=== PATIENT | female | born 1970 | race Caucasian/White ===

== ENCOUNTER 2023-07-07 09:12 | Outpatient (AMB) | payer OTHER, SELFPAY ==
--- NOTE | 2023-07-07 09:25 | A.SPINEOV_ITS ---
Intake Intake Visit Reasons: Lumbar spondylosis Intake Note: Ms. Johnson is here today c/o bilateral sciatica pain radiating down the legs. 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 HPI: This 52-year-old female started with pain in the right hip area years ago. The symptoms progressed to pain going down her thighs and distal part of her legs with the right side is more affected than the left side. The pain comes with standing and walking. 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 Sitting down or laying down alleviates his symptoms. Recently, she also noticed intermittent tingling and numbness in her legs. She has done extensive conservative treatments including vitamin supplements, stretching exercises, physical therapy, massage therapy, chiropractor, shoe inserts, CBD, lidocaine patches, IV therapy, trigger point injections, inflamma tory diet, muscle relaxers, gabapentin, ibuprofen, software therapy. The symptoms are progressively getting worse despite all these aforementioned management. 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 Smokes a few cigarettes a day Physical Exam: Pleasant female. She is able to reproduce the radiating pain down her legs in the office after short period of standing. Hip exam reveals no abnormalities. Provocative SI joint tests are negative. No deficits or motor sensation or reflexes Radiological Studies: MRI done at [facility] on 04/19/2023 shows severe spinal stenosis L4-5 and moderate L3-4 stenosis. Impression/Plan: This patient is suffering from neurogenic claudication due to severe spinal stenosis L4-5 and moderate spinal stenosis L3-4. I offered her a lumbar laminotomy of those levels. She scheduled for 09/16/2023. Thank you for allowing me to participate in your patients care. total time spent was 50 minutes in counseling ,coordination of plan, personal review of imaging, surgical decision making and subsequent plan Miller Garcia MD, PhD [facility] Trained Neurosurgeon Director, [facility] [place] [facility] Coding Level of Care Code New Pt Level 4 (66621) Diagnoses Lumbar stenosis with neurogenic claudication M48.062
== END 2023-07-07 10:12 | disposition home or self-care (01) ==
PROVIDERS: PCP Family Medicine; Referring Provider Nurse Practitioner; Visit Provider Neurological Surgery
DX: M48.062 Spinal stenosis, lumbar region with neurogenic claudication (principal)
CPT/HCPCS: 99204

== ENCOUNTER → 2023-07-07 09:12 | Outpatient (BNVA) | payer OTHER, SELFPAY | PROVIDERS: PCP Family Medicine; Visit Provider Neurological Surgery ==

== ENCOUNTER 2023-09-16 06:13 | Day surgery (SDC) | payer OTHER, SELFPAY ==
[2023-09-01 10:36] VITALS: BMI 23.8
[2023-09-16] VITALS (7 sets, daily range): BP systolic 131–158; BP diastolic 40–78; PULSE 63–90; RESP 12–16; TEMP 36.6–36.9; O2SAT 94–98
--- NOTE | ~2023-09-16 | FL_ITS ---
EXAMINATION: XR FLUOROSCOPY WITH IMAGES CLINICAL INFORMATION: L4-L5 laminectomy. COMPARISON: None available. TECHNIQUE: Fluoroscopy Supervised By: Dr. Story's. Fluoroscopy Time: 0.0 min. Cumulative Dose: 2.67 mGy. DAP: 0.561 Gycm2. Images: 2. FINDINGS: Intraoperative fluoroscopy and spot films were performed during a procedure in the OR. Two images show probes at the level of the upper endplate of L4 and at the upper endplate of L5. Please see Dr. Story's report for complete details. FL/FL guidance in OR IMPRESSION: Intraoperative fluoroscopy and spot films were obtained. Please see Dr. Story's report for complete details.
[2023-09-16] MEDS: Gabapentin 300 MG CAPSULE PO (07:19)
[2023-09-16] MEDS: methocarbamoL 750 MG TABLET PO (07:19)
--- NOTE | 2023-09-16 07:25 | HO.ANESPROP2 ---
Documented by User: Kendy Gamez NP 09/15/23 12:29 HPI - Anesthesia Eval Consult details Narrative: 52yo F for Left L4-5 Laminotomy Medically optimized per PCP [facility] Active Problems Active Problems: All Active Problems Lumbar stenosis with neurogenic claudication (Acute) Past Medical History Medical History (Updated 09/01/23 @ 10:18 by Flor Waite RN) Arthritis Back pain Emphysema of lung IBS (irritable bowel syndrome) Anxiety Depression COPD (chronic obstructive pulmonary disease) Surgical History Surgical History (Updated 09/01/23 @ 09:30 by Flor Waite RN) History of repair of rotator cuff Hx of cholecystectomy Social History Social History Are you a primary managed care provider to a significant other at home: No Do you presently have visiting nurse or other home services: No Patient Tobacco Use Status: Former Tobacco user Use of substances other than those prescribed or required for medical reasons: No Have you been hit, kicked, punched, or otherwise hurt by someone within the past year? If so, by whom?: No Are you DNR?: No Advance Directives: No Advance Directives Information Provided: Yes Advance Directives on File: No Recently lost weight without trying: No How much weight loss: 2-13 pounds Eating poorly because of decreased appetite: No Nutrition screen score: 1 Nutrition Risks: No Nutritional Risk Patient : No : No Poor oral hygiene: No Meds Allergies Allergy/AdvReac Type Severity Reaction Status Date / Time Sulfa (Sulfonamide AdvReac Stomach Verified 09/16/23 07:03 Antibiotics) Upset Amoxicillin Allergy Stomach Uncoded 09/16/23 07:03 Upset Home Medications ?Medication ?Instructions ?Recorded ?Confirmed ?Last Taken ?Type albuterol sulfate 90 mcg/actuation 2 puff inhalation Q4H PRN wheezing 09/01/23 09/01/23 Unknown History aerosol inhaler calcium carbonate 500 mg PO DAILY PRN Acid Reflux 09/01/23 09/01/23 Unknown History citalopram 20 mg tablet 20 mg PO DAILY 09/01/23 09/01/23 09/16/23 05:00 History desvenlafaxine 50 mg 50 mg PO DAILY 09/01/23 09/01/23 09/16/23 05:00 History tablet,extended release 24 hr fluticasone 250 mcg-salmeterol 50 1 inh inhalation BID 09/01/23 09/01/23 Unknown History mcg/dose blistr powdr for inhalation Exam Height,Weight and Vital Signs: Height 5 ft 2 in Weight 58.967 kg Pertinent Lab Results Pertinent Lab Results: CMP and CBC 08/2023 WNL Narrative Narrative: EKG 08/2023 NSR @ 66 Assessment and Plan Assessment Anesthesia Assessment: Chart Reviewed Documented by User: Candida Dodge, DO 09/16/23 07:25 [facility] Past Medical History Medical History (Updated 09/01/23 @ 10:18 by Flor Waite RN) Arthritis Back pain Emphysema of lung IBS (irritable bowel syndrome) Anxiety Depression COPD (chronic obstructive pulmonary disease) Family History Family history of problems with anesthesia: No Surgical History Surgical History (Updated 09/01/23 @ 09:30 by Flor Waite RN) History of repair of rotator cuff Hx of cholecystectomy History of Problems with Anesthesia: No Social History Social History Are you a primary managed care provider to a significant other at home: No Do you presently have visiting nurse or other home services: No Patient Tobacco Use Status: Former Tobacco user Use of substances other than those prescribed or required for medical reasons: No Have you been hit, kicked, punched, or otherwise hurt by someone within the past year? If so, by whom?: No Are you DNR?: No Advance Directives: No Advance Directives Information Provided: Yes Advance Directives on File: No Recently lost weight without trying: No How much weight loss: 2-13 pounds Eating poorly because of decreased appetite: No Nutrition screen score: 1 Nutrition Risks: No Nutritional Risk Patient : No : No Poor oral hygiene: No Meds Allergies Allergy/AdvReac Type Severity Reaction Status Date / Time Sulfa (Sulfonamide AdvReac Stomach Verified 09/16/23 07:03 Antibiotics) Upset Amoxicillin Allergy Stomach Uncoded 09/16/23 07:03 Upset Home Medications ?Medication ?Instructions ?Recorded ?Confirmed ?Last Taken ?Type albuterol sulfate 90 mcg/actuation 2 puff inhalation Q4H PRN wheezing 09/01/23 09/01/23 Unknown History aerosol inhaler calcium carbonate 500 mg PO DAILY PRN Acid Reflux 09/01/23 09/01/23 Unknown History citalopram 20 mg tablet 20 mg PO DAILY 09/01/23 09/01/23 09/16/23 05:00 History desvenlafaxine 50 mg 50 mg PO DAILY 09/01/23 09/01/23 09/16/23 05:00 History tablet,extended release 24 hr fluticasone 250 mcg-salmeterol 50 1 inh inhalation BID 09/01/23 09/01/23 Unknown History mcg/dose blistr powdr for inhalation Exam Exam Date and Time: September 16, [id number] Height,Weight and Vital Signs: Height 5 ft 2 in Weight 58.967 kg Height 5 ft 2 in Weight 58.967 kg Vital Signs Temperature 97.9 F 09/16/23 07:11 Pulse Rate 63 09/16/23 07:11 Respiratory Rate 16 09/16/23 07:11 Blood Pressure 133/76 09/16/23 07:11 Pulse Oximetry 97 09/16/23 07:11 Oxygen Delivery Method Room Air 09/16/23 07:11 Temperature 97.9 F 09/16/23 07:11 Pulse Rate 63 09/16/23 07:11 Respiratory Rate 16 09/16/23 07:11 Blood Pressure 133/76 09/16/23 07:11 Pulse Oximetry 97 09/16/23 07:11 Oxygen Delivery Method Room Air 09/16/23 07:11 Airway Mallampati Class: I TM Dist: >3cm Neck ROM: Full Loose/Missing/Broken Teeth: No (patient denies any loose or broken teeth) Heart: S1S2 Lungs: CTAB Assessment and Plan Assessment Anesthesia Assessment: Anesthesia Plan Discussed and Chart Reviewed Final Anesthetic Review Family History of Problems with Anesthesia: No History of Problems with Anesthesia: No NPO: Yes ASA Class: II Final Preanesthetic Review: No Changes in Pt Med Stat, Meds/Allgs Chart Reviewed, Consent Obtained/Reviewed and Anes Risks/Benef Reviewed Patient Risk: Low Procedure Risk: Intermediate Anesthetic Plan Anesthetic Plan: GA and Agree w/ Assess. and Plan Disposition: Standard PACU
--- NOTE | 2023-09-16 07:30 | MHC.SHP ---
Pre-Procedural Eval Section A - 24 Hr Update-Section A only Date of Service: 09/16/23 The patient is an INPATIENT: No Changes since office visit: No Cold of Flu in the past 2 weeks, No New Medical Problems, No Changes in Medication and No Patient answered all questions The patient has been examined within 24 hours of the surgical procedure. The History & Physical has been completed within 30 days and I have reviewed it.: No Section B - Complete if H&P > 30 days Chief Complaint: Spinal stenosis, lumbar region with neurogenic Allergies: Allergies Allergy/AdvReac Type Severity Reaction Status Date / Time Sulfa (Sulfonamide AdvReac Stomach Verified 09/16/23 07:03 Antibiotics) Upset Amoxicillin Allergy Stomach Uncoded 09/16/23 07:03 Upset Review of Systems Sugical H&P ROS: Negative: Constitution, Cardiovascular, Respiratory, Neurological, Psychiatric, Hem-Onc, Allergic/Immunologic, Gastrointestinal, Genitourinary, Musculoskeletal, Integumentary, Endocrine and Eyes/Ears/Nose/Throat Exam Surgical H&P Exam: Normal: HEENT, Normal: Heart, Normal: Lungs, Normal: Extremities, Normal: Abdomen, Normal: Skin and Normal: Neurological (awake, alert,oriented x 3 ) Plan Diagnosis/Plan: Unchanged L3-4, L4-5 bilateral decompression Time Spent With Patient Time: Total time managing care of this patient today __5__ minutes.
--- NOTE | 2023-09-16 07:31 | P.DS_ITS ---
DS: Providers Provider Date of Service: 09/16/23 Date of discharge: 09/16/23 Primary care physician: Jabier Avendano MD Admitting clinician: Miller Garcia DS: Diagnosis Discharge Diagnosis (1) Lumbar stenosis with neurogenic claudication: Status: Acute DS: Summary Time Attestation Discharge Coordination Time (in mins): 5 Quality: Safe Use of Opioids Does Pt have an Active Cancer Diagnosis on the Problem List?: No Quality: Stroke Does the patient have a stroke diagnosis?: No Physical Exam Vital Signs: Vital Signs: Last Vital Signs Temp 97.9 F 09/16/23 07:11 Pulse 63 09/16/23 07:11 Resp 16 09/16/23 07:11 BP 133/76 09/16/23 07:11 Pulse Ox 97 09/16/23 07:11 O2 Del Method Room Air 09/16/23 07:11 BMI result Body Mass Index 23.8 Discharge Plan Discharge Patient Disposition: Home, Self-Care Referrals: Jabier Avendano MD [Primary Care Provider] - 1 Week Discharge Medications: New oxycodone 5 mg tablet 5 mg PO Q4H PRN (Reason: pain) Qty: 30 0RF Rx Instructions: Partial Fill upon patient request. docusate sodium [Colace] 100 mg capsule 100 mg PO BID Qty: 20 0RF Continued citalopram 20 mg tablet 20 mg PO DAILY desvenlafaxine 50 mg Tablet Extended Release 24 Hr 50 mg PO DAILY calcium carbonate 500 mg calcium (1,250 mg) Tablet,Chewable 500 mg PO DAILY PRN (Reason: Acid Reflux) fluticasone propion-salmeterol 250-50 mcg/dose Blister With Device 1 inh INHALATION BID albuterol sulfate 90 mcg/actuation HFA aerosol inhaler 2 puff inhalation Q4H PRN (Reason: wheezing) Discharge Orders: Discharge Order (Routine); Ordered 09/16/23 Ordered By: Shree Patton Diet: Advance to usual diet Activity on Discharge: As tolerated Activity Restrictions/Additional Instructions: After your spinal surgery we ask you to observe the following restrictions/guidelines: Activity: It is normal to feel some discomfort as you increase your activity, but that will improve with time. We ask you avoid heavy lifting or acitivities that cause pain. As a general rule, 8lbs is a safe limit for lifting right after surgery. Walk as much as you feel comfortable but not to exhaustion. You will feel extra tired the first few days after surgery. Stay well hydrated. It is OK to walk up and down stairs You may return to driving when you are off narcotics (such as vicodin, oxyc odone, dilaudid, etc), and you are back to normal functional capacity. If you have any concerns please check with office before driving. Return to work is specific to each patient and each surgery, so please speak with your doctor/PA at first follow up. Please bring paperwork such as FMLA at that time if you need it filled out. Medications: For optimum pain control, it is best to start with a combination of 500 mg of Tylenol every 4 hours with 600 mg of Motrin every 8 hours, and use narcotics as needed in between for breakthrough pain. We will give you a short supply of narcotics after surgery (usually one weeks worth). If you need more please call the office but do not use more than prescribed. You will need to give our office 48 hours notice if you need deanna cotics refilled and we do not fill narcotics on weekends or evenings. If you are on a narcotic, it is a good idea to take a stool softener such as colace or senna to avoid constipation If you take blood thinner such as aspirin, Plavix, Coumadin, Effient, Eliquis etc for conditions such as Afib, DVT, Pulmonary embolus, coronary disease, stents etc please speak with your surgeon about specific details as to when you can resume these medications. You can resume NSAIDs on post op day 1 (eg: Motrin, Naproxen, etc). Follow up: Please call the office, , after surgery to arrange a 3 week follow up for wound check. Wound Care: You may remove your dressing on the first day after surgery. ?You may ?leave open to air. Please do not remove the steri strips underneath. they will fall off on their own in one week. IT IS NORMAL FOR THE WOUND TO OOZE OR BE BLOODY FOR A FEW DAYS AFTER SURGERY. ?IF THIS HAPPENS JUST PLACE NEW DRESSING OVER IT TO AVOID STAINING CLOTHES. You may shower on post op day # 1 We ask that you do not let the water soak the wound. If it does get wet, just towel dry lightly. Please do not scrub your incision or place any type of chemical/ointment on the wound. No tub baths, pools or jacuzzis for one month. If you have any leaking or redness from your wound, or fevers, please call office Print Language: Peruvian
[2023-09-16] MEDS: Lactated Ringers 1,000 ML 100 ML IVCONT (07:44)
--- NOTE | 2023-09-16 10:27 | P.OP_ITS ---
Operative Note Operative Note Date of Service: 09/16/23 Narrative: Preoperative Diagnosis: L3-4 and L4-5 spinal stenosis/lateral recess stenosis/neural foraminal stenosis Operation: L3-4 and L4-5 bilateral Laminotomy, Partial facetectomy and foraminotomy through a right-sided approach with use of microscope Consent Informed Consent was obtained for this operation. I have explained the nature, purpose and benefits of the operation. I have discussed the risks and benefit of the operation including possible complications or adverse events with patient/family. Alternative(s) were discussed with the patient with their relative benefits and risks as well as the consequences of not accepting the operation were included in obtaining consent. Surgeon: MILY EATON MD, PHD Procedure Assisted By: Shree Allison Description of Procedure This patient is suffering from neurogenic claudication due to L3-4 and L4-5 spinal stenosis. The patient was offered a decompression. The procedure complications were explained. The patient was consented. The patient was brought to the operating room and endotracheally intubated. The patient was turned in prone position on the Harrison frame. Prep and drape was done followed by timeout. The Physician dental laboratory assistant provided access. A mid lumbar incision was made followed by release of the paravertebral muscle on the right side to expose the L3-4 and L4-5 laminae and facet joints. An intraoperative x-ray was obtained to confirm the correct level. The microscope was brought in. I took over the procedure. The high-speed drill was used to do a L3-4 laminotomy until flavum ligament was reached. A #2 Kerrison was used to expand the laminotomy near flush to the pedicles and to include a partial facetectomy. The flavum ligament was opened and resected with a #3 Kerrison to decompress the underlying thecal sac. The flavum ligament was removed to decompress the lateral recess and the exiting L4 nerve root on the right side. The patient was turned contralaterally. The spinous process was undercut and in this way I was able to decompress the contralateral side by removing the flavum ligament. A long nerve hook could be easily passed along the medial side of the pedicles as a sign of adequate decompression of the nerve roots. A similar procedure was done for the L4-5 area. Much more stenosis was found. The L5 nerve root was released in the lateral recess after significant amount of flavum ligament was were selected. Patient was turned contralaterally. The spinous processes undercut and then the left L5 nerve root was decompressed in the lateral recess. Eventually a good decompression of the dural sac and exiting nerve root was obtained in the lateral recesses. The microscope was removed. Hemostasis was done. The physician dental laboratory assistant close the Incision in 2 layers. Steri-Strips were used to approximate incision. An OpSite with Tegaderm was used to cover the incision. All sponge needle counts were correct. Patient was extubated and transported in stable is to recovery room. Anesthesia: General Estimated Blood Loss (ml): 20 Complications: None Duration of Surgery: Under 70 Minutes Postoperative Plan: Discharge to home
[2023-09-16] MEDS: oxyCODONE HCl Immed Release 5 MG TABLET 10 MG PO (11:02)
== END 2023-09-16 12:15 | disposition home or self-care (01) ==
PROVIDERS: PCP Family Medicine; Visit Provider Neurological Surgery
PROC: (CPT 63047; principal; 2023-09-16 08:40)
DX: M48.062 Spinal stenosis, lumbar region with neurogenic claudication (principal)
CPT/HCPCS: 63047; 63048; J0131; J0690; J1100; J1885; J2250; J2405; J2704; J3010

== ENCOUNTER → 2023-09-16 06:13 | Outpatient (BNV) | payer OTHER, SELFPAY | PROVIDERS: PCP Family Medicine; Visit Provider Physician Assistant | DX: M48.062 Spinal stenosis, lumbar region with neurogenic claudication (principal) | CPT/HCPCS: 63047; 99499 ==

== ENCOUNTER 2023-10-25 11:25 | Outpatient (AMB) | payer OTHER, SELFPAY ==
--- NOTE | 2023-10-25 11:42 | HO.SPINEOV ---
Intake Visit Reasons: Late 1st post op Intake Note: Ms. Johnson is here today for her 1st post op visit. 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 She has had some improvement in the right leg pain. She is noticing pain around the left side of her back since surgery that she did not have before surgery. Her wound is healed up well. She is anticipating going back to work Later this week. She is back to doing a lot of her ADLs unusual activities. We discussed activity guidelines, restrictions and expectations after lumbar decompression. I will have the patient follow up in 6 weeks just to double check on the pain in her left low back. I also filled out some FMLA for her to return to work. Shree Garcia MD, PhD [facility] [place] [facility] Coding Level of Care Code Global (19314) Diagnoses Lumbar stenosis with neurogenic claudication M48.062
== END 2023-10-25 12:19 | disposition home or self-care (01) ==
PROVIDERS: PCP Family Medicine; Visit Provider Physician Assistant
DX: M48.062 Spinal stenosis, lumbar region with neurogenic claudication (principal)
CPT/HCPCS: 99024

== ENCOUNTER → 2023-10-25 11:25 | Outpatient (BNVA) | payer OTHER, SELFPAY | PROVIDERS: PCP Family Medicine; Visit Provider Physician Assistant ==

== ENCOUNTER 2023-12-06 11:11 | Outpatient (AMB) | payer OTHER, SELFPAY ==
--- NOTE | 2023-12-06 11:16 | A.SPINEOV_ITS ---
Intake Visit Reasons: 2nd post op Intake Note: Ms. Johnson is here for her 2nd post-op visit. Intake Man Required: No Allergies bee venom protein (honey bee) Adverse Reaction (Severe, Verified 10/25/23 11:44) Swelling Sulfa (Sulfonamide Antibiotics) Adverse Reaction (Verified 09/16/23 07:03) Stomach Upset Amoxicillin Allergy (Uncoded 09/16/23 07:03) Stomach Upset Assessment & Plan Assessment & Plan (1) Lumbar stenosis with neurogenic claudication: Code(s): M48.062 - Spinal stenosis, lumbar region with neurogenic claudication Category: Medical Plan MRs Johnson is just under 3 months out from her lumbar decompression L3-4, L4- 5. She did have a good relief from the pain down her right leg, but has had this residual back pain that she just can not shake. It will radiate down into both of her buttocks. 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 Her maximum walking distance now has a few miles, but even that distance will result in significant pain the next day to where she has to take [id number] pain medications, anti-inflammatories etc. and rest. She has no focal motor deficits. She is pleased with how the surgery went from the standpoint of the right leg pain, but can not shake this back pain. She has been doing her physical therapy exercises religiously now for few months. She was hoping it would go away, but to no avail. I am going to get a postoperative MRI of the lumbar spine with and without ezequiel 0. We will order closer to her home and [facility] in [facility] and get a copy of the disc and I can review it once it is done. Shree Garcia MD, PhD [facility] [place] [facility] Orders: Orders MR lumbar spine wo/w con Today M48.062 - Spinal stenosis, lumbar region with neurogenic claudication Coding Level of Care Code Global (21670) Diagnoses Lumbar stenosis with neurogenic claudication M48.062
== END 2023-12-06 11:43 | disposition home or self-care (01) ==
PROVIDERS: PCP Family Medicine; Visit Provider Physician Assistant
DX: M48.062 Spinal stenosis, lumbar region with neurogenic claudication (principal)
CPT/HCPCS: 99024

== ENCOUNTER → 2023-12-06 11:11 | Outpatient (BNVA) | payer OTHER, SELFPAY | PROVIDERS: PCP Family Medicine; Visit Provider Physician Assistant ==

== ENCOUNTER 2025-02-28 14:42 | Outpatient (AMB) | payer BC, SELFPAY ==
--- OUTSIDE RECORDS SUMMARY | 2024-08-19 16:30 | XMS_ITS ---
Author Organization [facility] Address [address] [address] Care Team Providers Care Aircraft Riveter Name Role Phone JANUARY DOWNEY Primary Care Provider Unavailabl e Kim Burciaga Unavailable [phone] Migration, Provider Unavailable Unavailable REASON FOR VISIT Multum To Medispan Conversion Encounter Medications Medication SIG (Take, Route, Frequency, Duration) Notes Start Date End Date Status Colyte with Flavor Packs - TAKE HALF THE EVENING BEFORE COLONOSCOPY AND 2ND HALF COMPLETE 4 HOURS PRIOR TO YOU COLONOSCOPY ANA 1 *Please review and pick correct strength-formulatio n from Medispan options. If intended option is not shown, discontinue and re-order from Quick Search* 07/04/2021 Active Sutab 0.225 G-0.188 G-1.479 G DIRECTED ORALLY PRIOR TO COLONOSCOPY; Duration: 1 DAYS *Please review and pick correct strength-formulatio n from Medispan options. If intended option is not shown, discontinue and re-order from Quick Search* 07/01/2021 Active Encounters Encounter Location Date Provider Diagnosis [facility] [address] [place] [phone] 08/19/2024 Provider Migration Plan Of Treatment No Information Progress Notes * ALEX AndreaTracieOB: 1 (54 yo F)Acc No.[id number]:08/19/2024 Patient: Louie JAYNEJammie Provider: :1970 A ge:53 Y S ex:Female Date:08/19/2024 Address:[address] [place] [address], [place] [phone] Pcp:JANUARY DOWNEY Subjective: * Chief Complaints: * 1 . Multum To Medispan Conversion Encounter. * Medical History: * Medications: T aking Sutab 0.225 G-0.188 G-1.479 G TABLET DIRECTED ORALLY PRIOR TO COLONOSCOPY , Notes to Pharmacist: *Please review and pick correct strength-formulation from Medispan options. If intended option is not shown, discontinue and re-order from Quick Search*, Taking Colyte with Flavor Packs - POWDER FOR RECONSTITUTION TAKE HALF THE EVENING BEFORE COLONOSCOPY AND 2ND HALF COMPLETE 4 HOURS PRIOR TO YOU COLONOSCOPY ANA 1 , Notes to Pharmacist: *Please review and pick correct strength- formulation from Medispan options. If intended option is not shown, discontinue and re-order from Quick Search* Objective: * Vitals: Assessment: Plan: * Treatment: * * Electronic signature of Prov ider Migration on 03/01/2025 at 03:17 AM EST Sign off status: Pending * Provider: Date: 0 08/19/2024 Generated for Reba anthony/Tierney/Hernanitting on: 05/01/2024 03:17 AM EST
--- NOTE | 2025-02-28 14:46 | HO.SPINEOV ---
Intake Visit Reasons: recurring pain after surgery Intake Note: Ms. Johnson is here today c/o recurring pain after surgery. 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 To recap she underwent L3-[address] Garcia on 09/16/2023. She overall reported excellent relief of her leg pain, however continued to suffer from intractable low back pain during her last office visit. She was last sent for medial branch blocks after her repeat MRI was reviewed by OTTO Patton. Unfortunately she obtained no relief from these. Since being seen by us last year she also was evaluated by several different physiatry clinics who told her they do not believe further injections/conservative treatment will be beneficial for her. Therefore she returns today for surgical consultation. She recently had a new MRI completed 02/22/2025. The radiology report states there is worsening stenosis seen at L4-5 compared to previous MRI. Today, Jammie reports that her low back pain has continued to increase in severity since last year. At rest she reports severe low back pain. When attempting to ambulate she also experiences severe cramping pain starting in her posterior buttocks and traveling down her lateral thighs terminating just below the knee. She states this has significantly affected her life. She is now to the point where she had to quit her job in December, and is trying to apply for disability benefits. She can not remain active for more than about 15 minutes without needing to rest. Imaging: On review of most recent MRI imaging she has significant disc degeneration at L4-5 with a posterior disc bulge contributing to severe central canal and bilateral foraminal stenosis at this level. There is also quite a bit of facet arthropathy at this level indicative of micro instability. Exam: On examination the patient ambulates slowly in his slightly hunched over when ambulating. She reports that she needs to hunch over an order to reduce her pain with ambulation. She reports no significant sensational deficits to light touch during examination. She is diffusely hyperreflexive, however takes SSRI medications which likely are confounding the exam. She is diffusely hyperreflexive. (-) bilateral straight leg raise. Plan: Pleasant 54-year-old female comes in today for evaluation of recurrent back pain. She underwent L3-[address] Garcia on 09/16/2023. After surgery she reported some relief of her leg pain, however her low back pain persisted and worsened over the course of the last year. On MRI imaging she has disc degeneration with a posterior disc bulge and severe stenosis at L4-5. Her leg pain has returned now as well. This patient has failed all attempted conservative measures including a less invasive surgery via lumbar decompression last year. She was evaluated alongside my attending neurosurgeon Dr. Garcia, who offered the patient L4-5 Oblique Lumbar Interbody Fusion to treat her low back and leg pain. We extensively explained this procedure to the patient today utilizing her spine models in office. All questions she had relayed to the surgery were answered. She wishes to proceed with surgery. She was given a tentative surgical date of 05/15/2024. The patient was given risk and benefits of surgery including but not limited to infection, hematoma, nerve injury, durotomy, weakness, bowel/bladder injury, persistent pain. We also discussed the option to continue with conservative treatment and patient wishes to proceed with surgery. They are aware they should stop NSAIDs 7 days prior to surgery. All questions were answered to the best of our ability. If there is anything about this patients medical history that we have overlooked or concerns you have about us proceeding with surgery we would appreciate any input you can offer. Jostin Garcia MD,PhD [facility] Coding Level of Care Code Est Pt Level 3 (64912) Diagnoses Lumbar stenosis with neurogenic claudication M48.062 Degenerative disc disease (DDD) of lumbar region with discogenic back pain and leg pain M51.362
--- OUTSIDE RECORDS SUMMARY | 2025-03-01 03:17 | XMS_ITS | Encounter Summary ---
Author Organization [facility] Address [address] [place] [address] Care Team Providers Care Office Machine Mechanic Name Role Phone Jabier Avendano MD Primary Care Provider [phone] Jabier Avendano MD Primary Care Provider [phone] Encounter Details Date Type Department Care Team (Late st Contact Info) Description 11/26/2008 Orders Only [facility] Practice [address] [place] [phone] Jabier Avendano MD [facility] [address] [place] [address] Social History Tobacco Use Types Packs/Day Years Used Date Smoking Tobacco: Former Cigarettes 1.5 20 0 07/27/1988 - 07/27/2008 Comments:quit 07/27/08 Alcohol Use Standard Drinks/Week Comments No 0 (1 standard drink = 0.6 oz pur e alcohol) Comments No Sex and Gender Information Value Date Recorded Sex Assigned at Not on file Legal Sex Female 5:20 AM EDT Gender Identity Not on file Sexual Orientation Not on file Occupation Industry Job Start Date Job End Date Not on file Not on file Not on file Not on file documented as of this encounter Progress Notes * Mamie Frazier - 12/03/2008 11:34 AM EDTQuick Note: Normal pap letter sent. * Mamie Frazier - 11/28/2008 9:56 AM EDTQuick Note: Diet and letter sent * Jabier Avendano MD - 11/28/2008 9:33 AM EDTQuick Note: PHR labs - nl CBC ,glucose ; nl HDL - but sig trigs (nonfasting ) - please send diet for lower trigs with letter. documented in this encounter Plan of Treatment Not on file documented as of this encounter Procedures * Due to [place] [employer] law, this organization might not be sharing negative HIV tests. Procedure Name Priority Date/Time Associated Diagnosis Comments LIQUID-BASED PAP WITH HPVH Routine 11/26/2008 3:00 PM EDT CHOLESTEROL, LDL (DIRECT) Routine 11/26/2008 LIPID PANEL + CARDIAC RISK WITH REFLEX TO LDL DIRECT Routine 11/26/2008 Screening for Hyperlipidemia CHLAMYDIA TRACHOMATIS/N. GONORRHOEAE (GC), SDA (GENITAL SWAB) Routine 11/26/2008 Engine Lathe Set Up Operator Tool Exam CBC 5 PART DIFF Routine 11/26/2008 Screening for Deficiency Anemia GLUCOSE (BLOOD) Routine 11/26/2008 Screening for Diabetes Mellitus documented in this encounter Results * Due to [place] [employer] law, this organization might not be sharing negative HIV tests. * LIQUID-BASED PAP WITH HPVH (11/26/2008 3:00 PM EDT) LIQUID-BASED PAP WITH HPVH SEE TEXT [facility] Comment: THINPREP PAP TEST WITH HPV SOURCES: VAGINA, CERVIX, ENDOCERVIX CLINICAL HISTORY: LMP: NOT GIVEN ASCUS/SHEILA PAP/BX W/IN 2 YRS ADDITIONAL INFORMATION PPS 12.15.08 ASCUS/HPV 4.1.08 ABLATION 4 YRS AGO STATEMENT OF ADEQUACY: SATISFACTORY, ENDOCERVICAL/TRANSFORMATION ZONE COMPONENT IS PRESENT QUALITY INDICATORS: LACK OF PERTINENT HISTORY: LMP RESULT: NEGATIVE FOR INTRAEPITHELIAL LESION OR MALIGNANCY HPV DNA TEST: NOT DETECTED HIGH/INTERMEDIATE RISK HPV DNA SUBTYPES (16,18,31,33,35,39,45, 51,52,56,58,59,68) ARE NOT DETECTED. THE ANALYTICAL PERFORMANCE CHARACTERISTICS OF THIS ASSAY, WHEN USED TO TEST SUREPATH OR VAGINAL SPECIMENS, HAVE BEEN DETERMINED BY [employer]. COMMENTS: THIS PAP TEST HAS BEEN EVALUATED WITH COMPUTER ASSISTED TECHNOLOGY. RESULT DATE: 12/03/2008 TECHNOLOGIST: ASHLEY/CHIOMA GYNECOLOGICAL CYTOLOGY IS A SCREENING PROCEDURE SUBJECT TO BOTH FALSE NEGATIVE AND FALSE POSITIVE RESULTS. IT IS MOST RELIABLE WHEN A SATISFACTORY SAMPLE IS OBTAINED ON A REGULAR REPETITIVE BASIS. RESULTS MUST BE INTERPRETED IN THE CONTEXT OF HISTORIC AND CURRENT CLINICAL INFORMATION. 11/26/2008 3:00 PM EDT 11/28/2008 12:08 PM EDT Narrative [facility] - 12/03/2008 11:08 AM EDT Report Comments: THIS PAP TEST HAS BEEN EVALUATED WITH COMPUTER ASSISTED TECHNOLOGY. us Jabier Avendano MD PATHOLOGY-INTERFACED Final Resu lt Performing Organization Address [facility] Co de Phone Number [facility] [address] [place] [address] * CHOLESTEROL, LDL (DIRECT) (11/26/2008) LDL Cholesterol, Direct 92 62 - 130 MG/DL [facility] 11/26/2008 11/27/2008 1:3 5 AM EDT Jabier Avendano MD LABORATORY Final Result Performing Organization Address [facility] Co de Phone Number [facility] [address] [place] [address] * CHLAMYDIA TRACHOMATIS/N. GONORRHOEAE (GC), SDA (GENITAL SWAB) (11/26/2008) CHLAMYDIA TRACHOMATIS DNA NOT DETECTED [facility] Comment:CT/NG SDA REFERENCE RANGE: NOT DETECTED NEISSERIA GONORRHOEAE DNA NOT DETECTED [facility] 11/26/2008 11/27/2008 1:3 5 AM EDT us Jabier Avendano MD LABORATORY Final Result [facility] [address] [place] [address] * CBC 5 PART DIFF (11/26/2008) WHITE BLOOD COUNT 7.3 3.8 - 10.8 THOUS/UL [facility] RBC 4.54 3.80 - 5.10 MIL/UL [facility] Hemoglobin 13.9 11.7 - 15.5 G/DL [facility] HCT (HEMATOCRIT) 41.0 35.0 - 45.0 % [facility] MCV 90.2 80.0 - 100.0 FL [facility] MCH 30.5 27.0 - 33.0 PG [facility] MCHC 33.8 32.0 - 36.0 G/DL [facility] BAND % 0 0 - 5 % [facility] NEUTROPHIL % 65 48 - 75 % [facility] LYMPHOCYTE % 25 17 - 40 % [facility] MONOCYTE % 9 0 - 14 % [facility] EOSINOPHIL % 1 0 - 5 % [facility] BASOPHIL % 0 0 - 3 % [facility] ATYPICAL LYMPHOCYTE % 0 0 - 5 % [facility] PLATELETS 172 140 - 400 THOUS/UL [facility] BANDS # 0 0 - 750 CELLS/MCL [facility] NEUTROPHILS # 4745 1500 - 7800 CELLS/MCL [facility] LYMPHOCYTES # 1825 850 - 3900 CELLS/MCL [facility] MONOCYTES # 657 200 - 950 CELLS/MCL [facility] EOSINOPHILS # 73 15 - 550 CELLS/MCL [facility] BASOPHILS # 0 0 - 200 CELLS/MCL [facility] ATYPICAL LYMPHOCYTES # 0 0 - 200 CELLS/MCL [facility] RDW 12.8 11.0 - 15.0 % [facility] MPV 10.7 7.5 - 11.5 FL [facility] 11/26/2008 11/27/2008 1:3 5 AM EDT us Jabier Avendano MD LAB SAME DAY RESULT Final Resul t [facility] [address] [place] [id number] * GLUCOSE (BLOOD) (11/26/2008) Pathologist [facility] Glucose 85 65 - 99 MG/DL [facility] 11/26/2008 11/27/2008 1:3 5 AM EDT us Jabier Avendano MD LAB SAME DAY RESULT Final Resul t Performing Organization Address [facility] de Phone Number [facility] [address] [place] [address] * (ABNORMAL) LIPID PANEL + CARDIAC RISK WITH REFLEX TO LDL DIRECT (11/26/2008) CHOLESTEROL, TOTAL 208(H) 125 - 200 MG/DL [facility] TRIGLYCERIDES 514(H) 30 - 149 MG/DL [facility] HDL-CHOLESTEROL 54 40 - 77 MG/DL [facility] LDL-CHOLESTEROL SEE TEXT 62 - 130 MG/DL [facility] Comment: INVALID, TRIG GREATER THAN 400 RISK CATEGORY: LDL-CHOLESTEROL GOAL CHD AND CHD RISK EQUIVALENTS: <100 MULTIPLE (2+) FACTORS: <130 ZERO TO ONE RISK FACTOR: <160 CHD RELATIVE RISK RATIO (TOTAL/HDL) 3.85 0.0 - 5.0 [facility] Comment:(0.7 X AVERAGE) 11/26/2008 11/27/2008 1:3 5 AM EDT Jabier Avendano MD LABORATORY Final Result Performing Organization Address [facility] de Phone Number [facility] [address] [place] [address] documented in this encounter Visit Diagnoses Diagnosis Screening for hyperlipidemia Screening for lipoid disorders Screening for diabetes mellitus Screening for deficiency anemia Screening for other and unspecified deficiency anemia Engine Lathe Set Up Operator Tool exam Routine gynecological examination documented in this encounter Care Teams Office Machine Mechanic Relationship Specialty Start Date End Date Jabier Avendano MD [facility] [address] [place] [phone] PCP - General 04/27/09 Jabier Avendano MD [facility] [address] [place] [phone] PCP - General 07/04/05 04/26/09 documented as of this encounter
--- OUTSIDE RECORDS SUMMARY | 2025-03-01 03:17 | XMS_ITS | Clinical Summary ---
Author Organization [facility] [employer] Address [address] [facility] [place] [address] Care Team Providers Care Product Management Manager Name Role Phone Unavailable Primary Care Provider Unavailabl e Allergies Active Allergy Reactions Criticality Noted Date Comments Amoxicillin 12/20/2019 Bee Pollen 12/20/2019 Medications citalopram (CeleXA) 40 MG tablet TAKE 1 TABLET BY MOUTH EVERY DAY. MAX DAY SUPPLY OF 30/INSURANC E 04/06/2020 Active desvenlafaxine 100 mg Tb24 TAKE ONE TABLET MY MOUTH DAILY. 05/01/2020 Active Immunizations Immunization Administration Dates Next Due Flublok Trivalent PFS IM; Wi thout Preservative (18+ yrs) 12/26/2024 Pfizer Cominarty Covid-19 Prefilled Syringe (12+ yrs) 12/26/2024 Shingrix Recombinant Dose 12/26/2024 Social History Tobacco Use Types Packs/Day Years Used Date Smoking Tobacco: Never Assessed Comments Unknown Sex and Gender Information Value Date Recorded Sex Assigned at Not on file Legal Sex Female 1:24 PM EST Gender Identity Not on file Sexual Orientation Not on file Last Filed Vital Signs Vital Sign Reading Time Taken Comments Blood Pressure - - Pulse 96 05/07/2020 3:54 PM EST Temperature 36.7 C (98 F) 05/07/2020 3:54 PM EST Respiratory Rate - - Oxygen Saturation 96% 05/07/2020 3:54 PM EST Inhaled Oxygen Concentration - - Weight - - Height - - Body Mass Index - - Plan of Treatment Health Maintenance Due Date Last Done Comments Colorectal Cancer: COLONOSCO PY Screening every 10 yrs (or Modifier) 1970 Depression: Screening Annual ly using PHQ-2/9 in Adults 18 yrs or above (or HM Modifier)([facility]) 1988 Hepatitis C Virus Infection in Adolescents and Adults: Screening (or Modifier) ([facility]) 1988 [facility] Screening Reminder: Fiona johnson for all adults ([facility]) 1988 Tobacco Smoking Cessation: i n Adults excluding Women: Behavioral and Pharmacotherapy Interventions ([facility]) 1988 DTaP/Tdap/Td Vaccines ([facility]) (1 - Tdap) 1989 Cervical Cancer Screenin 1-65 yrs of age (or Modifier) 09/24/1991 Cervical Cancer Screening: P ap every 3 yrs pts age 21-65 09/24/1991 Cervical Cancer: Pap Screeni ng with Modifier timing ([facility]) 09/24/1991 Cervical Cancer: hrHPV alone or with cotesting Pap for Pts 30-65yrs screening every 5yrs ([facility]) 09/24/1991 Colorectal Cancer Screening 45 -75 Yrs (or HM Modifier) 09/24/2015 Colorectal Cancer: FLEXIBLE SIGMOIDOSCOPY Screening every 5 yrs 09/24/2015 Colorectal Cancer: Fecal Imm unochemical Test (FIT) Annually [facility] 09/24/2015 Colorectal Cancer: High-sens itivity gFOBT Screening Annually [facility] 09/24/2015 Colorectal Cancer: Stool Col oguard Screening every 3 yrs 09/24/2015 Colorectal Cancer:CT Colonog renny Screening every 5 yrs 09/24/2015 Breast Cancer: Screening Fiona johnson age 50-74 yrs (or HM Modifier)([facility]) 2020 Pneumococcal Vaccination Scr eening: Patients 50+ yrs of age ([facility]) (1 of 1 - PCV) 2020 Zoster/Shingles Vaccine Seri es Screening: Adults aged 18+ yrs (or HM Modifiers)([facility]) (2 of 2) 02/20/2025 12/26/2024 COVID-19 Vaccine Screening: Initial Series and Booster Status ([facility]) Completed 12/26/2024 Flu Vaccination: Yearly for ages 18mos through 64 years (or Modifier)([facility]) Completed 12/26/2024 Medical Devices Not on file Insurance [facility]
--- OUTSIDE RECORDS SUMMARY | 2025-03-01 03:17 | XMS_ITS | Encounter Summary ---
Author Organization [facility] Address [address] [place] [address] Care Team Providers Care Biomedical Equipment Specialist Name Role Phone Harman Meek MD Primary Care Provider [phone] Encounter Details Date Type Department Care Team (Late Contact Info) Description 04/10/2014 Ophthalmology Data Conversion [facility] Historical Conversion Department [address] [place] [id number] Anna Carvalho MD [address] [place] [address] Social History Tobacco Use Types Packs/Day Years Used Date Smoking Tobacco: Never Assessed Comments Unknown Sex and Gender Information Value Date Recorded Sex Assigned at Female 12/01/2020 7:46 AM EDT Legal Sex Female 4:55 AM EDT Gender Identity Female 12/01/2020 7:46 AM EDT Sexual Orientation Straight 12/01/2020 7: 46 AM EDT documented as of this encounter Plan of Treatment Upcoming Encounters Date Type Department Care Team (Late Contact Info) Description 03/01/2025 2:00 PM EST Appointment [facility] IP Respiratory Therapy Department [address] [place] [address] 03/05/2025 1:30 PM EST Office Visit [facility] [address] [facility] Family Medicine Department [address] [place] [phone] Aysha Jackson NP [address] [place] [address] 03/16/2025 8:00 AM EST Telehealth [facility] [address] [facility] Endocrinology Department [address] [place] [phone] Molly Griffin MD [address] [place] [address] 03/19/2025 10:30 AM EST Follow-Up [facility] [address] [facility] Orthopedic Department [address] [address] Annamarie Christiansen MD [address] [place] [phone] 03/21/2025 9:30 AM EST Follow-Up [facility] Neurosurgery Clinic [address] [place] [address] Macario Brown MD [address] [place] [address] 10/22/2025 12:30 PM EDT Office Visit [facility] [address] [facility] Family Medicine Department [address] [place] [phone] Katy Montague NP [address] [place] [address] 12/05/2025 10:20 AM EDT Appointment [facility] [address] [place] [address] documented as of this encounter Visit Diagnoses Not on filedocumented in this encounter Additional Health Concerns Infection Onset Date Last Indicated Resolved Time COVID-19 - Suspected infection 07/05/2020 07/05/2020 12/31/2022 10:34 PM EDT COVID-19 - Suspected infection 05/13/2021 05/13/2021 01/01/2023 10:34 PM EDT documented as of this encounter Care Teams Biomedical Equipment Specialist Relationship Specialty Start Date End Date Harman Meek MD [address] [place] [address] PCP - General Family Medicine 10/16/24 documented as of this encounter
--- OUTSIDE RECORDS SUMMARY | 2025-03-01 03:17 | XMS_ITS | Encounter Summary ---
Author Organization [facility] Address [address] [place] [address] Care Team Providers Care Foreign Exchange Trader Name Role Phone Jabier Avendano MD Primary Care Provider [phone] Jabier Avendano MD Primary Care Provider [phone] Encounter Details Date Type Department Care Team ([facility] st Contact Info) Description 03/26/2008 Orders Only [facility] [employer] [address] [facility] [address] [place] [address] Tarik Garcia MD Social History Tobacco Use Types Packs/Day Years Used Date Smoking Tobacco: Every Day Cigarettes 1.5 20 Alcohol Use Standard Drinks/Week Comments No 0 [...] on file documented as of this encounter Plan of Treatment Not on file documented as of this encounter Procedures * Due to [place] state law, this organization might not be sharing negative HIV tests. Procedure Name Priority Date/Time Associated Diagnosis Comments THIN PREP PAP TEST WITH HUMAN PAPILLOMAVIRUS (HPV) DNA, HIGH Routine 03/26/2008 9:15 AM EST GC DNA PROBE (GEN-PROBE, GC) Routine 03/26/2008 STD (Sexually Transmitted Disease) TRICHOMONAS VAGINALIS CULTURE Routine 03/26/2008 STD (Sexually Transmitted Disease) CULTURE,VAGINAL Routine 03/26/2008 STD (Sexually Transmitted Disease) documented in this encounter Results * Due to [place] state law, this organization might not be sharing negative HIV tests. * THIN PREP PAP TEST WITH HUMAN PAPILLOMAVIRUS (HPV) DNA, HIGH (03/26/2008 9:15 AM EST) THINPREP PAP TEST WITH HPV SEE TEXT Comment: THINPREP PAP TEST WITH HPV SOURCES: CERVIX, ENDOCERVIX CLINICAL HISTORY: LMP: ABLATION PREVIOUS ABNORMAL CYTOLOGY REPEAT PAP LPS 07/12/07 (ASCUS/HPV+) STATEMENT OF ADEQUACY: SATISFACTORY, ENDOCERVICAL/TRANSFORMATION ZONE COMPONENT IS PRESENT RESULT: NEGATIVE FOR INTRAEPITHELIAL LESION OR MALIGNANCY HPV DNA TEST: NOT DETECTED HIGH/INTERMEDIATE RISK HPV DNA SUBTYPES (16,18,31,33,35,39,45, 51,52,56,58,59,68) ARE NOT DETECTED. COMMENTS: PREVIOUS HISTORY NOTED. HPV PERFORMED AT [facility], [address] [place] [address], SHALINI DE ANDA M.D., DIRECTOR RESULT DATE: 03/29/2008 TECHNOLOGIST: MS/DV GYNECOLOGICAL CYTOLOGY IS A SCREENING PROCEDURE SUBJECT TO BOTH FALSE NEGATIVE AND FALSE POSITIVE RESULTS. IT IS MOST RELIABLE WHEN A SATISFACTORY SAMPLE IS OBTAINED ON A REGULAR REPETITIVE BASIS. RESULTS MUST BE INTERPRETED IN THE CONTEXT OF HISTORIC AND CURRENT CLINICAL INFORMATION. 03/26/2008 9:15 AM EST 03/26/2008 10:03 PM EST Narrative 03/29/2008 4:39 PM EST Report Comments: PREVIOUS HISTORY NOTED. HPV PERFORMED AT [facility] [employer], [address] [place] [address], SHALINI DE ANDA M.D., DIRECTOR Tarik Garcia MD PATHOLOGY-INTERFACED Final Resul t * TRICHOMONAS VAGINALIS CULTURE (03/26/2008) TRICHOMONAS SEE TEXT Comment: SOURCE: UNKNOWN NO TRICHOMONAS VAGINALIS SEEN 03/26/2008 03/26/2008 9:3 2 PM EST us Tarik Garcia MD LABORATORY Final Result * CULTURE,VAGINAL (03/26/2008) Result(s) SEE TEXT Comment: SOURCE: VAGINA NORMAL ALDO 03/26/2008 03/26/2008 9:3 2 PM EST us Tarik Garcia MD LABORATORY Final Result * GC DNA PROBE (GEN-PROBE, GC) (03/26/2008) GC DNA PROBE SEE TEXT Comment: SOURCE: ENDOCERVIX NEGATIVE 03/26/2008 03/26/2008 9:3 2 PM EST us Tarik Garcia MD LABORATORY Final Result documented in this encounter Visit Diagnoses Diagnosis STD (sexually transmitted disease) Venereal disease, unspecified documented in this encounter Care Teams Foreign Exchange Trader Relationship Specialty Start Date End Date Jabier Avendano MD [facility] [address] [place] [phone] PCP - General 04/27/09 Jabier Avendano MD [facility] [address] [place] [phone] PCP - General 07/04/05 04/26/09 documented as of this encounter
--- OUTSIDE RECORDS SUMMARY | 2025-03-01 03:17 | XMS_ITS | Encounter Summary ---
Author Organization [facility] Address [address] [place] [address] Care Team Providers Care Farm Equipment Engineer Name Role Phone Harman Meek MD Primary Care Provider Encounter Details Date Type Department Care Team (Late Contact Info) Description 04/10/2014 Ophthalmology Data Conversion [facility] Historical Conversion Department [address] [place] [address] Anna Carvalho MD [address] [place] [address] Social History Tobacco Use Types Packs/Day Years [...] Info) Description 03/01/2025 2:00 PM EST Appointment [facility] IP Respiratory Therapy Department [address] [place] [address] 03/05/2025 1:30 PM EST Office Visit [facility] [address] [facility] Department [address] [place] [address] Aysha Jackson NP [address] [place] [address] 03/16/2025 8:00 AM EST Telehealth [facility] 198 [facility] Endocrinology Department [address] [place] [address] Molly Griffin MD [address] [place] [address] 03/19/2025 10:30 AM EST Follow-Up [facility] 94 [facility] Orthopedic Department [address] [address] Annamarie Christiansen MD [address] [place] [address] 03/21/2025 9:30 AM EST Follow-Up [facility] Neuro[facility] [address] [place] [address] Macario Brown MD [address] [place] [address] 10/22/2025 12:30 PM EDT Office Visit [facility] 61 [facility] Family Medicine Department [address] [place] [address] Katy Montague NP [address] [place] [address] 12/05/2025 10:20 AM EDT Appointment [facility] [address] [place] [address] documented as of this encounter Visit Diagnoses Not on filedocumented in this encounter Additional Health Concerns Infection Onset Date Last Indicated Resolved Time COVID-19 - Suspected infection 07/05/2020 07/05/2020 12/31/2022 10:34 PM EDT COVID-19 - Suspected infection 05/13/2021 05/13/2021 01/01/2023 10:34 PM EDT documented as of this encounter Care Teams Farm Equipment Engineer Relationship Specialty Start Date End Date Harman Meek MD [address] [place] [address] PCP - General Family Medicine 10/16/24 documented as of this encounter
--- OUTSIDE RECORDS SUMMARY | 2025-03-01 03:18 | XMS_ITS | Encounter Summary ---
Author Organization [facility] Address [address] [place] [address] Care Team Providers Care Talent Management Specialist Name Role Phone Jabier Avendano MD Primary Care Provider [phone] Jabier Avendano MD Primary Care Provider [phone] Encounter Details Date Type Department Care Team (Late st Contact Info) Description 03/11/2007 Orders Only [facility] [address] [place] [phone] Della Martinez [place] [address] [place] [address] Social History Tobacco Use Types Packs/Day Years [...] of this encounter Procedures * Due to [place] state law, this organization might not be sharing negative HIV tests. Procedure Name Priority Date/Time Associated Diagnosis Comments CARDIAC RISK/LIPID PROFILE I Routine 07/12/2007 SCREENING FOR HYPERLIPIDEMIA CBC 5 PART DIFF Routine 07/12/2007 FATIGUE TSH, THYROTROPIN Routine 07/12/2007 FATIGUE GLUCOSE (BLOOD) Routine 07/12/2007 SCREENING FOR DIABETES MELLITUS documented in this encounter Results * Due to [place] state law, this organization might not be sharing negative HIV tests. * TSH, THYROTROPIN (07/12/2007) TSH, THYROTROPIN 1.58 0.40 - 4.50 UIU/ML [facility] (CLIA# [id number]) 07/12/2007 07/12/2007 4:4 0 PM EDT Jabier Avendano MD LABORATORY Final Result [facility] (CLIA# [id number]) [address] [place] [address] * CBC 5 PART DIFF (07/12/2007) WHITE BLOOD COUNT 6.4 3.8 - 10.8 THOUS/UL [facility] (CLIA# [id number]) RBC 4.43 3.80 - 5.10 MIL/UL [facility] (CLIA# [id number]) Hemoglobin 13.3 11.7 - 15.5 G/DL [facility] (CLIA# [id number]) HCT (HEMATOCRIT) 38.4 35.0 - 45.0 % [facility] (CLIA# [id number]) MCV 86.8 80.0 - 100.0 FL [facility] (CLIA# [id number]) MCH 30.0 27.0 - 33.0 PG [facility] (CLIA# [id number]) MCHC 34.5 32.0 - 36.0 G/DL [facility] (CLIA# [id number]) BAND % 0 0 - 5 % [facility] (CLIA# [id number]) NEUTROPHIL % 58 48 - 75 % [facility] (CLIA# [id number]) LYMPHOCYTE % 30 17 - 40 % [facility] (CLIA# [id number]) MONOCYTE % 11 0 - 14 % [facility] (CLIA# [id number]) EOSINOPHIL % 1 0 - 5 % [facility] (CLIA# [id number]) BASOPHIL % 0 0 - 3 % [facility] (CLIA# [id number]) ATYPICAL LYMPHOCYTE % 0 0 - 5 % [facility] (CLIA# [id number]) PLATELETS 150 140 - 400 THOUS/UL [facility] (CLIA# [id number]) BANDS # 0 0 - 750 CELLS/MCL [facility] (CLIA# [id number]) NEUTROPHILS # 3712 1500 - 7800 CELLS/MCL [facility] (CLIA# [id number]) LYMPHOCYTES # 1920 850 - 3900 CELLS/MCL [facility] (CLIA# [id number]) MONOCYTES # 704 200 - 950 CELLS/MCL [facility] (CLIA# [id number]) EOSINOPHILS # 64 15 - 550 CELLS/MCL [facility] (CLIA# [id number]) BASOPHILS # 0 0 - 200 CELLS/MCL [facility] (CLIA# [id number]) ATYPICAL LYMPHOCYTES # 0 0 - 200 CELLS/MCL [facility] (CLIA# [id number]) RDW 14.4 11.0 - 15.0 % [facility] (CLIA# [id number]) MPV 11.5 7.5 - 11.5 FL [facility] (CLIA# [id number]) 07/12/2007 07/12/2007 4:4 0 PM EDT us Jabier Avendano MD LAB SAME DAY RESULT Final Resul t [facility] (CLIA# [id number]) [address] [place] [address] * (ABNORMAL) GLUCOSE (BLOOD) (07/12/2007) Glucose 61(L) 65 - 99 MG/DL [facility] (CLIA# [id number]) 07/12/2007 07/12/2007 4:4 0 PM EDT Jabier Avendano MD LAB SAME DAY RESULT Final Resul t Performing Organization Address City/[facility] Co de Phone Number [facility] (CLIA# [id number]) [address] [place] [address] * (ABNORMAL) CARDIAC RISK/LIPID PROFILE I (07/12/2007) CHOLESTEROL, TOTAL 144 125 - 200 MG/DL [facility] (CLIA# [id number]) TRIGLYCERIDES 292(H) 30 - 149 MG/DL [facility] (CLIA# [id number]) HDL-CHOLESTEROL 39(L) 40 - 77 MG/DL [facility] (CLIA# [id number]) LDL-CHOLESTEROL 47(L) 62 - 130 MG/DL [facility] (CLIA# [id number]) Comment: RISK CATEGORY: LDL-CHOLESTEROL GOAL CHD AND CHD RISK EQUIVALENTS: <100 MULTIPLE (2+) FACTORS: <130 ZERO TO ONE RISK FACTOR: <160 CHD RELATIVE RISK RATIO (TOTAL/HDL) 3.69 0.0 - 5.0 [facility] (CLIA# [id number]) Comment:(0.7 X AVERAGE) 07/12/2007 07/12/2007 4:4 0 PM EDT Jabier Avendano MD LABORATORY Final Result Performing Organization Address [facility] Co de Phone Number [facility] (CLIA# [id number]) [address] [place] [address] * CULTURE,VAGINAL (03/11/2007) Result(s) SEE TEXT [facility] (CLIA# [id number]) Comment: SOURCE: VAGINA NORMAL ALDO 03/11/2007 03/11/2007 9:5 9 PM EST Jabier Avendano MD LABORATORY Final Result Performing Organization Address City/[facility] Co de Phone Number [facility] (CLIA# [id number]) [address] [place] [address] * CHLAMYDIA DNA PROBE (GEN-PROBE, CHLAMYDIA) (03/11/2007) CHLAMYDIA TRACHOMATIS DNA SEE TEXT [facility] (CLIA# [id number]) Comment: SOURCE: ENDOCERVIX NEGATIVE 03/11/2007 03/11/2007 9:5 9 PM EST Jabier Avendano MD LABORATORY Final Result [facility] (CLIA# [id number]) [address] [place] [address] * GC DNA PROBE (GEN-PROBE, GC) (03/11/2007) GC DNA PROBE SEE TEXT [facility] (CLIA# [id number]) Comment: SOURCE: ENDOCERVIX NEGATIVE 03/11/2007 03/11/2007 9:5 9 PM EST Jabier Avendano MD LABORATORY Final Result [facility] (CLIA# [id number]) [address] [place] [address] documented in this encounter Visit Diagnoses Diagnosis DISCHARGE FROM THE VAGINA- Primary Leukorrhea, not specified as infective SCREENING FOR HYPERLIPIDEMIA Screening for lipoid disorders SCREENING FOR DIABETES MELLITUS Screening for diabetes mellitus FATIGUE Other malaise and fatigue documented in this encounter Care Teams Talent Management Specialist Relationship Specialty Start Date End Date Jabier Avendano MD [facility] [address] [place] [phone] PCP - General 04/27/09 Jabier Avendano MD [facility] [address] [place] [phone] PCP - General 07/04/05 04/26/09 documented as of this encounter
--- OUTSIDE RECORDS SUMMARY | 2025-03-01 03:18 | XMS_ITS | Encounter Summary ---
Author Organization [facility] Address [address] [place] [address] Care Team Providers Care Aerosol Line Operator Name Role Phone Jabier Avendano MD Primary Care Provider [phone] Jabier Avendano MD Primary Care Provider [phone] Encounter Details Date Type Department Care Team (Late st Contact Info) Description 03/11/2007 Orders Only [facility] [address] [place] [address] Jabier Avendano MD [facility] [address] [place] [address] Social History Tobacco Use Types Packs/Day Years [...] of this encounter Procedures * Due to [place] state law, this organization might not be sharing negative HIV tests. Procedure Name Priority Date/Time Associated Diagnosis Comments GC DNA PROBE (GEN-PROBE, GC) Routine 03/11/2007 DISCHARGE FROM THE VAGINA CHLAMYDIA DNA PROBE (GEN-PROBE, CHLAMYDIA) Routine 03/11/2007 DISCHARGE FROM THE VAGINA CULTURE, URINE Routine 03/11/2007 DYSURIA CULTURE,VAGINAL Routine 03/11/2007 DISCHARGE FROM THE VAGINA URINALYSIS, DIP ONLY ( SITE STAT ONLY) Routine 03/11/2007 DYSURIA documented in this encounter Results * Due to [place] state law, this organization might not be sharing negative HIV tests. * CULTURE,VAGINAL (03/11/2007) Result(s) SEE TEXT [facility] (CLIA# [id number]) Comment: SOURCE: VAGINA NORMAL ALDO 03/11/2007 03/11/2007 9:5 9 PM EST Jabier Avendano MD LABORATORY Final Result Performing Organization Address City/[facility]/ZIP Co de Phone Number [facility] (CLIA# [id number]) [address] [place] [address] * CHLAMYDIA DNA PROBE (GEN-PROBE, CHLAMYDIA) (03/11/2007) CHLAMYDIA TRACHOMATIS DNA SEE TEXT [facility] (CLIA# [id number]) Comment: SOURCE: ENDOCERVIX NEGATIVE 03/11/2007 03/11/2007 9:5 9 PM EST Jabier Avendano MD LABORATORY Final Result Performing Organization Address City/[facility]/ZIP Co de Phone Number [facility] (CLIA# [id number]) [address] [place] [address] * GC DNA PROBE (GEN-PROBE, GC) (03/11/2007) GC DNA PROBE SEE TEXT [facility] (CLIA# [id number]) Comment: SOURCE: ENDOCERVIX NEGATIVE 03/11/2007 03/11/2007 9:5 9 PM EST us Jabier Avendano MD LABORATORY Final Result [facility] (CLIA# [id number]) [address] [place] [address] * CULTURE, URINE (03/11/2007) URINE CULTURE CLEAN VOID SEE TEXT [facility] (CLIA# [id number]) Comment: SOURCE: URINE NO GROWTH 03/11/2007 03/11/2007 12: 40 PM EST Jabier Avendano MD LABORATORY Final Result Performing Organization Address City/[facility] Co de Phone Number [facility] (CLIA# [id number]) [address] [place] [address] * URINALYSIS, DIP ONLY ( SITE STAT ONLY) (03/11/2007) COLOR (URINE) YELLOW YELLOW [facility] (CLIA# [id number]) APPEARANCE (URINE) CLEAR CLEAR [facility] (CLIA# [id number]) SPECIFIC GRAVITY 1.015 1.001 - 1.035 [facility] (CLIA# [id number]) PH (URINE) 5.0 5.0 - 8.0 [facility] (CLIA# [id number]) PROTEIN (URINE) NEG NEG [facility] (CLIA# [id number]) GLUCOSE (URINE) NEG NEG [facility] (CLIA# [id number]) Ketones (Urine) NEG NEG [facility] (CLIA# [id number]) BILIRUBIN (URINE) NEG NEG [facility] (CLIA# [id number]) BLOOD (URINE) NEG NEG FC [facility] (CLIA# [id number]) WBC (URINE) NEG NEG [facility] (CLIA# [id number]) NITRITE (URINE) NEG NEG FC [facility] (CLIA# [id number]) 03/11/2007 03/11/2007 12: 40 PM EST us Jabier Avendano MD LAB SAME DAY RESULT Final Resul t [facility] (CLIA# [id number]) [address] [place] [address] documented in this encounter Visit Diagnoses Diagnosis DYSURIA Dysuria DISCHARGE FROM THE VAGINA Leukorrhea, not specified as infective documented in this encounter Care Teams Aerosol Line Operator Relationship Specialty Start Date End Date Jabier Avendano MD [facility] [address] [place] [phone] PCP - General 04/27/09 Jabier Avendano MD [facility] [address] [place] [phone] PCP - General 07/04/05 04/26/09 documented as of this encounter
--- OUTSIDE RECORDS SUMMARY | 2025-03-01 03:18 | XMS_ITS | Clinical Summary ---
Author Organization [facility] Address [address] [place] [address] Phone Care Team Providers Care Debt Collection Specialist Name Role Phone Harman Meek MD Primary Care Provider [phone] Jabier Avendano MD Unavailable [phone] Allergies Active Allergy Reactions Criticality Noted Date Comments Amoxicillin 12/20/2019 Bee Pollen 12/20/2019 Medications citalopram (CELEXA) 40 MG tablet Take 40 mg by mouth daily. Active desvenlafaxine succinate (PRISTIQ) 100 MG 24 hr tablet Take 100 mg by mouth daily. Active tiZANidine (ZANAFLEX) 4 MG tablet .5-1 tablet at night. 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 No 02/08/2025 Education Answer Date Recorded Are you interested in help w ith more adult education (for example, completing high school, GED, job training, learning the [place]ian language, technical skills, or developing parenting skills)? No 02/08/2025 Are you concerned about learning? Not on file 02/08/2025 No 02/08/2025 Yes 02/08/2025 Food Answer Date Recorded Within the past 6 months we worried whether our food would run out before we got money to buy more. Never True 02/08/2025 Within the past 6 months the food we bought just didn't last and we didn't have enough money to get more. Never True Residential Stability Answer Date Recor ded What is your housing situation today? [facility] have [facility] 02/08/2025 How many times have you move d in the past 12 months? Zero (I did not move) 02/08/2025 Paying for Meds Answer Date Recorded Do you have trouble paying for medicines? No 02/08/2025 Paying Utility Bills Answer Date Record ed Do you have trouble paying your heating or elect ricity bill? No 02/08/2025 Transportation Answer Date Recorded Has the lack of transportati on kept you from medical appointments or from getting medications? No 02/08/2025 Digital Access Answer Date Recorded No 02/08/2025 Yes 02/08/2025 Do you have reliable internet access at home? Ye s 02/08/2025 Do you have a device (e.g., phone, tablet, computer) with a working camera? Yes 02/08/2025 Comments Unknown Sex and Gender Information Value Date Recorded Sex Assigned at Female 12/21/2024 9:59 AM EDT Legal Sex Female 9:55 AM EDT Gender Identity Female 12/21/2024 9:59 AM EDT Sexual Orientation Straight 12/21/2024 9: 59 AM EDT Last Filed Vital Signs Vital Sign Reading Time Taken Comments Blood Pressure - - Pulse - - Temperature - - Respiratory Rate - - Oxygen Saturation - - Inhaled Oxygen Concentration - - Weight 63.5 kg (140 lb) 02/13/2020 8:46 AM EST Height 157.5 cm (5' 2 ) 02/13/2020 8:46 AM EST Body Mass Index 25.61 02/13/2020 8:46 AM EST Plan of Treatment Upcoming Encounters Date Type Department Care Team (Late st Contact Info) Description 03/07/2025 10:00 AM EST Telemedicine [facility] [address] [address] Umberto Stephen, [address] [place] [id number] [email or web address] Health Maintenance Due Date Last Done Comments Adult Td,Tdap Booster 1970 DEPRESSION SCREENING 1982 SMOKING Hx and SMOKELESS TOBACCO SCREENING 09/24/1983 HIV ONE-TIME SCREENING (18-65 YEARS) 1988 PAP SMEAR 09/24/1991 COLOGUARD 09/24/2015 COLONOSCOPY 09/24/2015 COLORECTAL CANCER SCREENING 09/24/2015 FIT TEST 09/24/2015 FOBT 09/24/2015 SIGMOIDOSCOPY 09/24/2015 VIRTUAL COLONOSCOPY 09/24/2015 PNEUMOCOCCAL VACCINES (50+ years) (2 of 2 - PCV) 12/31/2024 01/01/2024 MAMMOGRAM 11/07/2026 11/07/2024, 0712/2024, 10/19/2022 LIPID PANEL 2028 09/24/2023, 02/18/2023 RSV VACCINE (1 - 1-dose 75+ series) 2045 HEPATITIS C SCREENING Completed 07/03/2024 COVID-19 VACCINE Completed 12/26/2024, , 01/03/2023, Additional history exists INFLUENZA VACCINE Completed 12/26/2024, , 01/03/2023, Additional history exists ZOSTER VACCINES Completed 12/26/2024, 01/03/2023 HEPATITIS A VACCINES Aged Out No long er eligible based on patient's age to complete this topic HIB VACCINES Aged Out No longer eligi ble based on patient's age to complete this topic MENINGOCOCCAL VACCINES (ACWY) Aged Out No longer eligible based on patient's age to complete this topic MENINGOCOCCAL VACCINES (B) Aged Out N o longer eligible based on patient's age to complete this topic Medical Devices Not on file Procedures Procedure Name Priority Date/Time Associated Diagnosis Comments OUTSIDE MR SPINE REPORT ONLY Routine 02/23/2025 8:39 AM EST MRI SPINE MUSCULOSKELETAL FOCUS OUTSIDE (NO INTERPRETATION) Routine 02/22/2025 12:00 AM EST from Last 3 Months Results * Outside MR Spine Report Only (02/23/2025 8:39 AM EST) us Umberto Stephen DO IMG MR SPINE Final Resu lt * MRI Spine (Bone) Outside (No Interpretation) (02/22/2025 12:00 AM EST) Narrative [facility] IMG INTERFACES - 02/23/2025 8:41 AM EST This study is for PACS storage only and not for interpretation. us Umberto Stephen DO IMG OUTSIDE IMAGING W/OUT INTERPRETATION Final Result [facility] IMG INTERFACES from Last 3 Months Insurance [facility] [employer] [id number] [employer] [id number] [employer] [id number] [employer] Care Teams Debt Collection Specialist Relationship Specialty Start Date End Date Harman Meek MD [address] [place] [phone] PCP - General Family Medicine 12/21/24 Jabier Avendano MD [address] [place] [address] 12/21/24 Additional Source Comments The information contained in this document represents components of the legal health record. It is not the complete legal health record.[facility]
--- OUTSIDE RECORDS SUMMARY | 2025-03-01 03:18 | XMS_ITS | Encounter Summary ---
Author Organization [facility] Address [address] [place] [address] Care Team Providers Care Electrotype Molder Name Role Phone Hamran Meek MD Primary Care Provider Reason for Visit * Reason Onset Date Comments PCP Update 02/13/2025 Encounter Details Date Type Department Care Team (Late st Contact Info) Description 02/13/2025 Telephone [facility] [address] [facility] Family Medicine Department [address] [place] [address] Harman Meek MD [address] [place] [address] PCP Update Social History Tobacco Use Types Packs/Day Years Used Date Smoking Tobacco: Every Day Cigarettes 1.5 15 Smokeless Tobacco: Never Comments:: Alcohol Use Standard Drinks/Week Comments Yes 3 (1 standard drink = 0.6 oz pur e alcohol) Socially [facility] Utilities Answer Date Recorded In the past 12 months has [employer], gas, oil, or water [employer] threatened to shut off services in your home? No 11/03/2024 Hunger Vital Sign Answer Date Recorded Within the past 12 months, y ou worried that your food would run out before you got the money to buy more. Never true 11/04/19 25 Within the past 12 months, t he food you bought just didn't last and you didn't have money to get more. Never true 11/03/2024 Transportation Answer Date Recorded In the past 12 months, has l ack of reliable transportation kept you from medical appointments, meetings, work or from getting things needed for daily living? No 11/03/2024 Housing Answer Date Recorded Housing Risk Low 2 04/20/2024 Housing Risk Medium Not on file 04/20/2024 Housing Risk High Not on file 04/20/2024 What is your living situation today? [facility] 04/20/2024 Comments No Sex and Gender Information Value Date Recorded Sex Assigned at Female 12/01/2020 7:46 AM EDT Legal Sex Female 4:55 AM EDT Gender Identity Female 12/01/2020 7:46 AM EDT Sexual Orientation Straight 12/01/2020 7: 46 AM EDT documented as of this encounter Miscellaneous Notes * Telephone Encounter - Aparna Vidales - 02/13/2025 10:27 AM EST Pt will be staying with Renetta DIAMOND and Dr. Caban. documented in this encounter Plan of Treatment Upcoming Encounters Date Type Department Care Team (Late st Contact Info) Description 03/01/2025 2:00 PM EST Appointment [facility] IP Respiratory Therapy Department [address] [place] [address] 03/05/2025 1:30 PM EST Office Visit [facility] [address] [facility] Family Medicine Department [address] [place] [address] Aysha Jackson NP [address] [place] [address] 03/16/2025 8:00 AM EST Telehealth [facility] 198 [facility] Endocrinology Department [address] [place] [address] Molly Griffin MD [address] [place] [address] 03/19/2025 10:30 AM EST Follow-Up [facility] 94 [facility] Orthopedic Department [address] [address] Annamarie Christiansen MD [address] [place] [address] 03/21/2025 9:30 AM EST Follow-Up [facility]surgery [facility] [address] [place] [address] Macario Brown MD [address] [place] [address] 10/22/2025 12:30 PM EDT Office Visit [address] Family Medicine Department [address] [place] [phone] Katy Montague NP [address] [place] [phone] 12/05/2025 10:20 AM EDT Appointment [facility] [address] [place] [phone] documented as of this encounter Visit Diagnoses Not on filedocumented in this encounter Care Teams Electrotype Molder Relationship Specialty Start Date End Date Harman Meek MD [address] [place] [phone] PCP - General Family Medicine 10/16/24 documented as of this encounter
--- OUTSIDE RECORDS SUMMARY | 2025-03-01 03:18 | XMS_ITS | Patient Health Record ---
Author Organization [facility] Address [address] [facility] [address] [place] [address] Care Team Providers Care Bar Assistant Name Role Phone Annette DOMINGUEZ MSc, Alyssa Unavailable [phone] Allergies Allergen (clinical drug ingredient) Drug/Non Drug Allergy documented on EMR Reaction Allergy Type Onset Date Status bee sting (uncoded) Unknown Allergy Active amoxicillin Amoxicillin Unknown Drug Allergy Act aleyda sulfa Unknown Drug Allergy Active Reason For Referral No Information Medications Medication SIG (Take, Route, Frequency, Duration) Notes Start Date End Date Status CeleXA 40 MG Tablet 0.5 tablet Orally On ce a day; Duration: 30 day(s) Active ALPRAZolam 0.5 MG Tablet 1 tablet Orally Twice a day Active Omeprazole 20 MG Capsule Delayed Release 1 capsule 30 minutes before morning meal Orally Once a day; Duration: 30 day(s) Active Citalopram Hydrobromide 40 M G Tablet 0.5 tablet Orally Once a day; Duration: 30 day(s) Active Probiotic - Capsule as directed Orally Active Copper 5 MG Capsule as directed Orally Active Zinc - Lozenge as directed Orally Active Collagen Ultra - Capsule as directed Orally Active Curcumin 95 500 MG Capsule as directed Orally Active B12 Liquid Health Booster Active Multivitamin Adults - Tablet as directed Orally Active Pristiq 100 MG Tablet Extended Release 24 Hour 1 tablet Orally Once a day; Duration: 30 day(s) Active Cyclobenzaprine HCl 10 MG Tablet 1 tablet 1 to 2 hours before bedtime Orally Once a day; Duration: 30 day(s) Active Aleve 220 MG Tablet 1 tablet with food o r milk as needed Orally every 12 hrs Active Glucosamine 500 MG Capsule 1 capsule wit h a meal Orally Three times a day; Duration: 30 day(s) Active Fish Oil 1000 MG Capsule 1 capsule Orall y Once a day; Duration: 30 day(s) Active Social History Social History Social History Social Info Question Answer Notes Exercise Do you Exercise? Yes What type of exercise do you do? Stretching,Stre ngthening How often? Daily Opioid Risk Tool Family history of alcoholism No Family history of illegal drugs No Family history of prescription drugs No Personal alcoholism No Personal history of illegal drugs No History of preadolescent abuse No Depression Yes Alcohol screen Did you have a drink containing alcohol in the past year? Yes How often did you have a drink containing alcohol in the past year? Two to four times a month How many drinks did you have on a typical day when you were drinking in the past year? 1 or 2 How often did you have six or more drinks on one occasion in the past year? Less than monthly Smoking Are you a current smoker How often do you smoke cigarettes? every day How many cigarettes a day do you smoke? 11-20 How soon after you wake up do you smoke your first cigarette? within 5 min Are you interested in quitting? Ready to quit When did you start smoking? 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 [address] [place] [address] [id number] Jammie Johnson Self - patient is the insured Medical (General) History Medical History History ICD Code Diagnosed: Back Pain,Bronchitis,Asthma,A nxiety Disorder,Depression Surgical History Surgery Date(Month/Year) rotater cuff right [id number]
--- OUTSIDE RECORDS SUMMARY | 2025-03-01 03:18 | XMS_ITS | Patient Health Record ---
Author Organization [facility] Address [address] [address] Care Team Providers Care Potato Picker Name Role Phone JANUARY DOWNEY Primary Care Provider Unavailabl e Kim Burciaga Unavailable [phone] Migration, Provider Unavailable Unavailable Reason For Referral No Information Medications Medication [...] Active Encounters Encounter Location Date Provider Diagnosis [facility] [address] [employer] [address] [place] [address] 08/19/2024 Provider Migration Plan Of Treatment No Information Insurance Providers Payer Name Payer Address Payer Phone Subscriber Number Group Number Insured Name Patient Relationship to Insured Coverage Start Date Coverage End Date [employer] [facility] (Form[facility] [address] [address] [place] [address] [id number] Jammie Johnson Self - patient is the insured
--- OUTSIDE RECORDS SUMMARY | 2025-03-01 03:18 | XMS_ITS | Clinical Summary ---
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 Ventolin HFA 90 mcg/actuation inhaler Inhale 2 puffs by mouth every 4 hours as needed for wheezing or shortness of breath. 03/31/20 21 Active IBU 600 mg tablet Take 600 mg by mouth every 8 hours as needed for pain or headache. 09/09/19 23 Active mometasone-form oterol (Dulera) 200-5 mcg/actuation inhaler Inhale 2 puffs by mouth 2 times daily. 08/25/19 23 Active EPINEPHrine (EPIPEN) 0.3 mg/0.3 mL injection syringeIndicati ons:Bee sting allergy Inject 1 Syringe (0.3 mg total) into the outer thigh muscle as directed as needed for anaphylaxis (inject once prn as needed for bee stings). 0.3 mL 1 10/21/19 24 Active zolpidem (AMBIEN) 5 mg tablet Take 1 tablet (5 mg total) by mouth nightly as needed for sleep. 15 tablet 08/15/19 25 Active ergocalciferol (VITAMIN D2) 1,250 mcg (50,000 unit) capsuleIndicati ons:Vitamin D deficiency Take 1 capsule by mouth once weekly. 12 capsule 09/29/19 25 Active amLODIPine (NORVASC) 5 mg tablet TAKE 1 TABLET BY MOUTH ONCE A DAY 90 tablet 1 10/08/19 25 Active cholestyramine 4 gram powder Take by mouth. A ctive ALPRAZolam (XANAX) 0.5 mg tabletIndicatio ns:Anxiety disorder, unspecified type Take 2 tablets (1 mg total) by mouth 2 times a day as needed for anxiety. 60 tablet 10/21/19 25 Active desvenlafaxine succinate (PRISTIQ) 100 mg 24 hr tabletIndicatio ns:Generalized anxiety disorder,Dysthy yasmeen disorder Take 1 tablet (100 mg total) by mouth once a day. 90 tablet 11/04/19 25 Active citalopram (CeleXA) 40 mg tabletIndicatio ns:Anxiety disorder, unspecified type Take 1 tablet (40 mg total) by mouth once a day. 90 tablet 2 11/04/19 25 026 Active diclofenac (VOLTAREN) 75 mg EC tabletIndicatio ns:Bilateral radiating leg pain TAKE 1 TABLET BY MOUTH TWICE A DAY 60 tablet 1 11/18/19 25 Active Veozah 45 mg tabletIndicatio ns:Hot flashes Take 1 tablet by mouth once daily. 30 tablet 3 01/08/20 25 Active omega 0-wqf-bbp-fish oil (Fish OiL) 1,000 (120-180) mg capsule Take 1,000 mg by mouth once a day. Active fluticasone propion-salmete roL (ADVAIR DISKUS) 100-50 mcg inhaler Inhale 1 puff by mouth 2 times a day. 02/01/20 25 Active omeprazole (PriLOSEC) 20 mg capsule Take 20 mg by mouth once a day. Active tiZANidine (ZANAFLEX) 4 mg tablet Take 4 mg by mouth every 6 hours as needed. 02/13/20 25 Active Bacillus coagulans-inuli n 1 billion-250 cell-mg capsule as directed Orally Active HYDROcodone-kaitlin taminophen (NORCO) 5-325 mg tablet SMARTSI Tablet(s) By Mouth Every 6 Hours PRN 11/01/19 25 11/04/2 025 Discontinued Active Problems Problem Noted Date Diagnosed Date Sleep disturbance 10/25/2024 Assessment & Plan (02/13/2025 10:26 AM EST): States has never slept more than a few hours a night. This has been ongoing for many years. It certainly is possible she has sleep apnea, she may desaturate at night, a sleep study has been ordered. Assessment & Plan (10/25/2024 2:07 PM EDT): - Reports difficulty sleeping, averaging 5 hours per night. - Increase Ambien dosage to 10 mg to improve sleep. - Discontinue amitriptyline due to lack of benefit and causing anxiety. - Monitoring of sleep patterns and effectiveness of increased Ambien dosage. Leg pain, bilateral 10/25/2024 Assessment & Plan (10/25/2024 2:07 PM EDT): - Persistent pain reported in legs, buttocks, back, and stomach despite previous treatments including shots and surgery. - Physical exam reveals painful knots in thighs, front and back, and cooler temperature in lower extremities and decreased pedal pulses - Referral to a vascular specialist for further evaluation of leg pain. - Consideration of a second opinion at the pain clinic at [facility]. Orders: Ambulatory referral to Vascular Surgery; Future Primary hypertension 02/07/2024 Assessment & Plan (02/13/2025 10:26 AM EST): Acceptable blood pressure today. Assessment & Plan (10/25/2024 2:07 PM EDT): - Notes improvement in BP when checking at home, BP as well reassuring today at 120/70 - Currently on amlodipine 5 mg taken in the morning. - Blood pressure readings have been stable recently. - Regular monitoring of blood pressure at home. - Discussion on medication adherence and lifestyle modifications. Assessment & Plan (04/21/2024 12:38 PM EST): She had stopped lisinopril about a month ago secondary to cough blood pressure still mildly elevated today we will start amlodipine 2.5 mg daily with low threshold to increase to 5 mg will follow-up in 2 months or sooner with any additional concerns Assessment & Plan (02/13/2024 4:03 PM EST): Jammie's blood pressure are significantly improved with the Lisinopril 10 mg by mouth daily - at this time we will continue with this dose as it does appear to be appropriately treating her hypertension. Abnormal MRI 09/03/2023 Atopic dermatitis 09/03/2023 Assessment & Plan (10/25/2024 2:07 PM EDT): - No acute concerns at this time follow-up as needed. Bilateral radiating leg pain 09/03/2023 Assessment & Plan (02/13/2024 4:10 PM EST): Bilateral radiating is very lifkely related to the L3-L5 surgical intervention by Dr Garcia - will trail Diclofenac 75 mf twice dialy for pain management Orders: Sedimentation Rate; Future C-Reactive Protein; Future diclofenac (VOLTAREN) 75 mg EC tablet; Take 1 tablet (75 mg total) by mouth 2 times a day. Assessment & Plan (09/20/2023 10:17 AM EDT): Now status post definitive treatment for L4-L5 radicular issues. Surgery by Dr. Garcia 09/16/2023 recovering well now. Cervical facet syndrome 09/03/2023 Cervical radicular pain 09/03/2023 Lumbar radicular pain 09/03/2023 Night sweats 09/03/2023 Assessment & Plan (10/25/2024 2:07 PM EDT): - Currently treating with Veozah - helping more during the day than at night. She continues to follow with Endocrinology regarding adrenal adenoma, would like second opinion and referred to Dr Griffni out of [place] Orders: Ambulatory referral to Endocrinology; Future Assessment & Plan (04/21/2024 12:38 PM EST): Ongoing concerns she has been evaluated by both hematology oncology as well as endocrinology without any significant findings for these. She does have upcoming follow-up with endocrinology Cigarette smoker 09/03/2023 Assessment & Plan (02/13/2025 10:26 AM EST): Chart review appears to show at least a 40-year history of smoking. Was smoking a pack a day when she was hospitalized. Has not smoked since that hospitalization. Hopefully she can remain abstinent. A chest CT lung cancer screening has been ordered. Assessment & Plan (10/25/2024 2:07 PM EDT): - Continues to smoke 1 ppd. Things have been increasingly stressful. - She has a hx of cessation for 8 months, but has since restarted, she is considering it but with how stressful things have been she is unsure when she will plan to try again, last cold turkey. - Smoking for 44 years, consumes alcohol socially twice a month. - Discussion on the impact of smoking on health and encouragement to quit. - Review of previous quit attempts and strategies for future cessation efforts. - Consideration of support resources for smoking cessation. Assessment & Plan (04/21/2024 12:38 PM EST): She was a non-smoker for 8 months but has gone back to smoking she is going to continue to work on cessation again Assessment & Plan (09/20/2023 10:17 AM EDT): Now a non-smoker for 28 days. Congratulations on that and she should continue in that capacity. Dense breast tissue on mammogram 09/03/2023 Diarrhea 09/03/2023 Emphysema lung 09/03/2023 Assessment & Plan (02/13/2025 10:20 AM EST): Pulmonary consult has been placed Assessment & Plan (10/25/2024 2:07 PM EDT): - She reports no limitation in breathing, she is not on any regular medications for asthma or emphysema - Low dose Lung CT due in February which she will schedule. - Continues to smoke 1 ppd. Things have been increasingly stressful. - She has a hx of cessation for 8 months, but has since restarted, she is considering it but with how stressful things have been she is unsure when she will plan to try again, last cold turkey. - Smoking for 44 years, consumes alcohol socially twice a month. - Discussion on the impact of smoking on health and encouragement to quit. - Review of previous quit attempts and strategies for future cessation efforts. - Consideration of support resources for smoking cessation. Fatigue 09/03/2023 Assessment & Plan (04/21/2024 12:38 PM EST): Ongoing concern she did not like how the trazodone made her feel and did feel like it increased her anxiety will trial amitriptyline 10 mg at bedtime to start increasing to up to 30 as tolerated every several weeks. Follow-up with any additional concerns Fibroadenoma of right breast 09/03/2023 Lesion of nasal septum 09/03/2023 Meralgia paresthetica of right side 09/03/2023 Myofascial muscle pain 09/03/2023 Anxiety disorder 07/12/2023 Assessment & Plan (10/25/2024 2:07 PM EDT): - Scored 5 on the anxiety screening. - Current citalopram dosage increased to 40 mg daily. - Prescription for Xanax 1 mg sent, with instructions to take two 0.5 mg tablets to equal 1 mg. - Discussion on anxiety and mental health, with patient using Xanax sparingly. Orders: citalopram (CeleXA) 20 mg tablet; Take 2 tablets (40 mg total) by mouth once a day. ALPRAZolam (XANAX) 0.5 mg tablet; Take 2 tablets (1 mg total) by mouth 2 times a day as needed for anxiety. Assessment & Plan (06/20/2024 8:21 AM EDT): Her anxiety remains high despite current medications and counseling. She has not been using Xanax frequently, only once or twice a week. She has not been taking her sleeping pills this week due to concerns about increased anxiety. She reports that her hot flashes are affecting her sleep and mood. The potential interaction between Veozah and her current medications will be investigated to determine if it could help with her hot flashes and improve her sleep and mood. She is advised to continue with her current medication regimen: citalopram 30 mg, Pristiq 100 mg, and Xanax as needed. She is encouraged to continue with counseling and physical therapy. Assessment & Plan (04/21/2024 12:38 PM EST): Ongoing concerns with her mental health she is presently on citalopram 30 mg daily and Pristiq 50 mg daily as well as Xanax as needed she has been using the Xanax more frequently to help with sleep she had been on Pristiq 100 mg in the past and found it more effective will increase the dose and encouraged her to reach out to counseling information given may need to consider medication consult as well. Orders: desvenlafaxine succinate (PRISTIQ) 100 mg 24 hr tablet; Take 1 tablet (100 mg total) by mouth once a day. Assessment & Plan (04/21/2024 12:38 PM EST): Ongoing concerns with her mental health she is presently on citalopram 30 mg daily and Pristiq 50 mg daily as well as Xanax as needed she has been using the Xanax more frequently to help with sleep she had been on Pristiq 100 mg in the past and found it more effective will increase the dose and encouraged her to reach out to counseling information given may need to consider medication consult as well. Assessment & Plan (09/20/2023 10:17 AM EDT): Stable citalopram and infrequent as needed alprazolam. Dysthymic disorder 07/12/2023 Assessment & Plan (02/13/2025 11:40 AM EST): Did not discuss. Will follow up as indicated Assessment & Plan (10/25/2024 2:07 PM EDT): - Scored 6 on the depression screening. - Continuation of current therapy sessions and supportive measures like acupuncture and massage. - Review of mental health status and adjustment of medications as needed - see anxiety for POC - Follow-up scheduled to monitor mental health and response to treatment. Assessment & Plan (06/20/2024 8:21 AM EDT): Her anxiety remains high despite current medications and counseling. She has not been using Xanax frequently, only once or twice a week. She has not been taking her sleeping pills this week due to concerns about increased anxiety. She reports that her hot flashes are affecting her sleep and mood. The potential interaction between Lali and her current medications will be investigated to determine if it could help with her hot flashes and improve her sleep and mood. She is advised to continue with her current medication regimen: citalopram 30 mg, Pristiq 100 mg, and Xanax as needed. She is encouraged to continue with counseling and physical therapy. Assessment & Plan (04/21/2024 12:38 PM EST): Ongoing concerns with her mental health she is presently on citalopram 30 mg daily and Pristiq 50 mg daily as well as Xanax as needed she has been using the Xanax more frequently to help with sleep she had been on Pristiq 100 mg in the past and found it more effective will increase the dose and encouraged her to reach out to counseling information given may need to consider medication consult as well. Orders: desvenlafaxine succinate (PRISTIQ) 100 mg 24 hr tablet; Take 1 tablet (100 mg total) by mouth once a day. Headache 07/12/2023 Hypertriglyceridemia 07/12/2023 Assessment & Plan (09/20/2023 10:17 AM EDT): Await fasting lipid profile and address treatment accordingly. Multiple pulmonary nodules 07/12/2023 Assessment & Plan (02/13/2025 10:26 AM EST): As noted a chest CT has been ordered. Panic disorder without agoraphobia 07/12/2023 Assessment & Plan (02/13/2025 10:26 AM EST): Did not discuss. Vitamin D deficiency 07/12/2023 Assessment & Plan (10/25/2024 2:07 PM EDT): - Vitamin D level is within the normal range at 51. - Continuation of current supplementation regimen of 50,000 IU. - Regular monitoring of vitamin D levels to ensure maintenance within normal range. - Discussion on vitamin D supplementation and its effectiveness Assessment & Plan (09/20/2023 10:17 AM EDT): Await vitamin D level and address supplementation accordingly Lumbar spondylosis 04/20/2023 Assessment & Plan (10/25/2024 2:07 PM EDT): - Sp[facility] Clinic in [place] for injections, more frequent recently however no singificant improvement in her pain, coming December will be stopping work due to pain. Assessment & Plan (04/20/2023 11:38 PM EST): Please note patient called regarding spinal stenosis both central and foraminal. Severe enough in nature from L3-S1 to warrant neurosurgical referral especially in the face of significant lumbar spondylosis as well. Lumbar stenosis 04/20/2023 Assessment & Plan (10/25/2024 2:07 PM EDT): - Has been being followed by Dr Reed for frequent injections, however declined any significant improvement - she reports she has new referral to Neurosurgery given persistence of pain with no improvement of injections, and previous lumbar surgery without improvement as well. 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 Assessment & Plan (04/20/2023 11:38 PM EST): Please note patient called regarding spinal stenosis both central and foraminal. Severe enough in nature from L3-S1 to warrant neurosurgical referral especially in the face of significant lumbar spondylosis as well. Adrenal adenoma, left 04/20/2023 Assessment & Plan (10/25/2024 2:07 PM EDT): - Followed by Endocrinology currently with Dr Perez - would like second opinion and new referral sent for Dr Griffin in [place] Orders: Ambulatory referral to Endocrinology; Future Assessment & Plan (04/20/2023 11:39 PM EST): 2.2 cm left adrenal nodule consistent with adenoma. Obtain MRI adrenal protocol. Right upper quadrant abdominal pain 04/08/2023 Assessment & Plan (04/08/2023 11:20 AM EST): Relative to the symptoms she has now especially with her history of focal gallbladder distention with the ultrasound done in March of last year this seems most consistent with acute cholecystitis. We will obtain labs including CBC, LFTs and ESR, and I have placed an order for right upper quadrant ultrasound urgently. If that is not able to be scheduled in an urgent capacity then we will go ahead and get an abdominal CT scan as well. Either way I am anticipating findings that may require us to refer urgently to general surgery as well. In the meantime she will have bland diet, copious fluids and monitor symptomatically Elevated antibody levels 01/15/2016 Right hip pain 01/15/2016 Leg pain 10/01/2015 Low back pain 02/14/2015 Somatic dysfunction of lumbar region 06/11/2009 Asthma 09/06/2002 Overview (09/03/2023): 09/06/2002 Mamie PARNELL M.D. , Assessment & Plan (10/25/2024 2:07 PM EDT): - She reports no limitation in breathing, she is not on any regular medications for asthma or emphysema - Low dose Lung CT due in February which she will schedule. - Continues to smoke 1 ppd. Things have been increasingly stressful. - She has a hx of cessation for 8 months, but has since restarted, she is considering it but with how stressful things have been she is unsure when she will plan to try again, last cold turkey. - Smoking for 44 years, consumes alcohol socially twice a month. - Discussion on the impact of smoking on health and encouragement to quit. - Review of previous quit attempts and strategies for future cessation efforts. - Consideration of support resources for smoking cessation. Resolved Problems Problem Noted Date Diagnosed Date Resolved Date Biceps tendinitis of left upper extremity 09/03/2023 09/03/2023 Chronic cholecystitis 09/03/20232023 Smoking 09/03/2023 09/03/2023 Overview (09/03/2023): 08/18: Using chantix x 4 weeks and doing well; experiencing mild side effects, but tolerable. Lump of scalp 09/03/2023 09/03/2023 Mass of breast, right 09/03/20232023 Encounters Date Type Department Care Team Description 02/22/2025 1:23 PM EST - 02/22/2025 11:59 PM EST Hospital Encounter [facility] [address] [place] [address] Cigarette smoker Discharge Disposition: Home or Self Care () 02/22/2025 8:17 AM EST - 02/22/2025 1:22 PM EST Hospital Encounter [facility] [address] [place] [address] Lumbago with sciatica, right side; Lumbago with sciatica, left side Discharge Disposition: Home or Self Care () 02/22/2025 Orders Only [facility] [address] [place] [address] Umberto Stephen Lumbago with sciatica, right side; Lumbago with sciatica, left side 02/17/2025 myChart Message [address] Family Medicine Department [address] [place] [phone] Aysha Jackson NP Referral 02/15/2025 2:30 PM EST Office Visit [facility] [address] [place] [phone] Shelley Hanson NP Lumbar radiculopathy (Primary Dx) 02/14/2025 Telephone [facility] [address] [place] [phone] Macario Brown MD 02/13/2025 10:00 AM EST Office Visit [address] Family Medicine Department [address] [place] [phone] Harman Meek MD Hospital discharge follow-up (Primary Dx); Hypoxia; Cigarette smoker; Emphysema lung ; Primary hypertension; Multiple pulmonary nodules; Sleep disturbance; Panic disorder without agoraphobia; Dysthymic disorder; Asthma, unspecified asthma severity, unspecified whether complicated, unspecified whether persistent (HCC) 02/13/[address] Department [address] [place] [phone] Harman Meek MD PCP Update 01/23/2025 Orders Only [address] Department [address] [place] [phone] Harman Meek MD Cigarette smoker (Primary Dx) 01/12/2025 myChart Message [address] Department [address] [place] [phone] Aysha Jackson, DARA Johnson pneumonia 01/05/[address] Department [address] [place] [phone] Aysha Jackson, DARA Hot flashes 12/27/2024 myChart Message [address] Physiatry Department [address] [place] [phone] Edouard Reed, DO Hi this is Jammie Johnson Workman s comp 12/25/2024 myChart Message [address] Department [address] [place] [phone] Aysha Jackson NP Letter from Last 3 Months Immunizations Immunization Administration Dates Next Due COVID-19, Pfizer, mRNA, Biva lent Booster, PF, 30 mcg/0.3 mL dose (for age 12 y and up) 01/03/2022 Covid-19 Monovalent Vaccine, Moderna, mRNA, PF 02/15/2021 Covid-19, Pfizer, mRNA, Hill valent, PF 30 mcg/0.3 mL dose (for ages 12 and older) 07/29/2020,07/08/2020 Covid-19, Pfizer, mRNA, [place] -sucrose Vaccine, PF, 30 mcg/0.3 mL (for age 12 y and up) 12/26/2024,01/01/2024,01/03/2023 Hepatitis B adult (ENGERIX-B ADULT) vaccine 1 mL IM 12/05/1998,06/13/1998,05/16/1998 Influenza Split 02/13/2009 Influenza trivalent, PF MDCK (FLUCELVAX) vaccine 0.5 mL IM (for age 6 mo and older) 01/01/2024,12/28/2019 Influenza, Injectable, Madin Yana Canine Kidney, Preservative Free, Quadrivalent 01/03/2023 Influenza, Injectable, Quadr ivalent, Preservative Free 01/10/2021,05/08/2019,03/11/2018,02/08 Influenza, Quadrivalent, Rec ombinant, Injectable, PF 01/03/2022,01/10/2021 Influenza, Trivalent, MDV, Injectable ,03/04/2010,03/26/2008,02/19,02/16/2006,03/19/2005,03/21/2003 ,02/14/1991 Influenza, Unspecified 12/26/2024,02/09/2016, Meningococcal Polysaccharide Vaccine (MPSV4) 03/26/2003 Pneumococcal Polysaccharide Vaccine, 23 Valent 01/01/2024,10/17/2012 Tetanus Toxoid, Reduced Diph theria Toxoid, and Acellular Pertussis Vaccine, Adsorbed 03/22/2017 Tetanus and Diphtheria Toxoi ds, Adsorbed, Preservative Free (2 Lf of Tetanus Toxoid and 2 Lf of Diphtheria Toxoid) 10/04/2006,05/16/1998 Tuberculin Skin Test; Unspec ified Formulation 03/12/2006 Zoster Vaccine Recombinant 12/26/2024,01/03/2023 Family History Medical History Relation Name Comments Arthritis Father Wang krishna Asthma Father Wang krishna COPD Father Wang krishna Diabetes Father Wang krishna Heart disease Father Wang glezhumberto Hypertension Father Wang glezhumberto Stroke Father Wang glezhumberto Heart disease Maternal Grandmother Diabetes Mother Jennifer krishna Hypertension Mother Jennifer krishna Other Mother Jennifer krishna Family Histo ry of diabetes mellitus Breast cancer Sister Camille armijo Cancer Sister Camille armijo Early Sister Camille armijo Relation Name Status Comments Father Wang krishna Maternal Grandmother Mother Jennifer krishna Sister Camille armijo Social History Tobacco Use Types Packs/Day Years Used Date Smoking Tobacco: Every Day Cigarettes 1.5 15 Smokeless Tobacco: Never Tobacco Cessation:Ready to Q uit: Not Asked Comments:: Alcohol Use Standard Drinks/Week Comments Yes 3 (1 standard drink = 0.6 oz pur e alcohol) Socially [facility] Utilities Answer Date Recorded In the past 12 months has e electric, gas, oil, or water company threatened to shut off services in your home? No 11/03/2024 Hunger Vital Sign Answer Date Recorded Within the past 12 months, y ou worried that your food would run out before you got the money to buy more. Never true 11/04/19 Within the past 12 months, t he [...] Orientation Straight 12/01/2020 7: 46 AM EDT Last Filed Vital Signs Vital Sign Reading Time Taken Comments Blood Pressure 133/86 02/15/2025 2:52 PM EST Pulse 80 02/15/2025 2:52 PM EST Temperature 36 C (96.8 F) 02/13/2025 9:47 AM EST Respiratory Rate 18 02/15/2025 2:52 PM EST Oxygen Saturation 96% 02/15/2025 2:52 PM EST Inhaled Oxygen Concentration - - Weight 62.2 kg (137 lb 3.2 oz) 02/13/2025 9:47 A M EST Height 157.5 cm (5' 2 ) 11/03/2024 11:37 AM EDT Body Mass Index 25.09 11/03/2024 11:37 AM EDT Plan of Treatment Upcoming Encounters Date Type Department Care Team (Late st Contact Info) Description 03/01/2025 2:00 PM EST Appointment [facility] Respiratory Therapy Department [address] [place] [address] 03/05/2025 1:30 PM EST Office Visit [facility] [address] [facility] Family Medicine Department [address] [place] [id number] Aysha Jackson NP 10 [place] [address] 03/16/2025 8:00 AM EST Telehealth [facility] 198 [facility] Endocrinology Department [address] [place] [address] Molly Griffin MD [address] [place] [address] 03/19/2025 10:30 AM EST Follow-Up [facility] 94 [facility] Orthopedic Department 94 [facility] [address] [place] [address] Annamarie Christiansen MD 94 [place] [address] 03/21/2025 9:30 AM EST Follow-Up [facility] 55 [place] [address] Macario Brown MD [address] [place] [id number] 10/22/2025 12:30 PM EDT Office Visit [facility] [address] [facility] Family Medicine Department [address] [place] [address] Katy Montague, FORMAT PROOFREADER [address] [place] [address] 12/05/2025 10:20 AM EDT Appointment [facility] [address] [place] [id number] Health Maintenance Due Date Last Done Comments Cologuard 1970 FOBT / Fit Test 1970 Pap Smear 1970 Sigmoidoscopy 1970 Cervical Cancer Screening 05/03/2023 HPV and Pap Smear 05/03/2023 05/03/2018 Pneumococcal Vaccine: 50+ Years (2 of 2 - PCV) 12/31/2024 01/01/2024, 10/17/2012 CT Lung Cancer Screening (12 months, previous LungRADS 1 or 2) 02/21/2025 02/22/2024, 02/18/2023, 02/16/2022, Additional history exists Depression Screening and Follow-Up 10/13/2025 10/13/2024 HIV Screening 10/25/2025 Postponed from 1970 (Patient Declined) Social Drivers of Health Annual Screening 11/03/2025 11/03/2024 Basic Metabolic Panel 01/12/2026 01/12/2025 , 01/11/2025, 01/10/2025, Additional history exists Mammogram 11/07/2026 11/07/2024, 10/10, 10/02/2020, Additional history exists DTaP,Tdap,and Td Vaccines (2 - Td or Tdap) 03/22/2027 03/22/2017, 10/04/2006, 05/16/1998 Diabetes Screening 01/13/2028 01/12/2025, 1 , 01/10/2025, Additional history exists Colon Cancer Screening 04/13/2034 Colonoscopy 04/13/2034 04/13/2024, 0 05/2024, 01/13/2022, Additional history exists Hepatitis B Vaccines Completed 12/05/1998, 06/13/1998, 05/16/1998 Hepatitis C Screening Completed 07/03/2024 COVID-19 Vaccine Completed 12/26/2024, , 01/03/2023, Additional history exists Influenza Vaccine Completed 12/26/2024, , 01/03/2023, Additional history exists Zoster Vaccines Completed 12/26/2024, 01/03/2023 Alcohol/Substance Use Screening Completed 02/26/2025 Procedures * Due to [place] Ex[place] law, this organization might not be sharing negative HIV tests. Procedure Name Priority Date/Time Associated Diagnosis Comments MRI LUMBAR SPINE W WO CONTRAST Routine 02/22/2025 9:25 AM EST Lumbago with sciatica, right side Lumbago with sciatica, left side MARCO BILATERAL SCREENING DIGITAL MAMMOGRAM WITH MIGUEL ÁNGEL Routine 11/07/2024 4:34 PM EDT Encounter for screening mammogram for malignant neoplasm of breast COMPREHENSIVE METABOLIC PANEL STAT 11/03/2024 11:51 AM EDT HEPATITIS C ANTIBODY W/REFLEX TO HCV RNA, QUANTITATIVE PCR Routine 07/03/2024 9:37 AM EDT Need for hepatitis C screening test COLONOSCOPY 04/13/2024 CT LUNG CANCER SCREENING 12 MONTHS ANNUAL FOLLOW UP Routine 02/22/2024 11:48 AM EST Cigarette smoker from Last 3 Months or Most Recently Relevant to Health Maintenance Results * Due to [place] Ex[place] law, this organization might not be sharing negative HIV tests. * MRI Lumbar Spine W WO Contrast (02/22/2025 9:25 AM EST) Anatomical Region Laterality Modality Spine, L-spine Magnetic Resonan ce 02/26/2025 9:01 AM EST Addenda Addendum by Reginaldo Peng MD on 02/26/2025 9:03 AM EST Findings regarding severe spinal canal stenosis were communicated over the phone to Fiona Ashford at Dr. Stephen's office by neuroradiologist Dr. Reginaldo Peng on 02/26/2025 at 9:03 a.m., with readback verification. If this radiology report contains a blank impression section, it is an incomplete radiology report. Please contact the interpreting radiologist or applicable radiology division as soon as possible to obtain the completed interpretation. Workstation ID: [id number] Impressions 02/22/2025 5:45 PM EST 1. Postsurgical changes status post right-sided hemilaminectomies at L3-L4 and and L4-L5. 2. Multilevel multifactorial degenerative changes in the lumbar spine, progressed at L4-L5, where there is now severe spinal canal stenosis. 3. Varying degrees of neural foraminal stenosis, up to moderate at L4-L5, not significantly changed. 4. Bilateral facet effusions at L3-L4 and L4-L5 with small synovial cysts. If this radiology report contains a blank impression section, it is an incomplete radiology report. Please contact the interpreting radiologist or applicable radiology division as soon as possible to obtain the completed interpretation. Workstation ID: [id number] Narrative 02/22/2025 5:45 PM EST EXAMINATION: MRI of lumbar spine without and with contrast PHARMACEUTICAL: Weight-based dosage of intravenous Gadolinium-based contrast agent was administered, as per department protocol. TECHNIQUE: Multiplanar and multisequence MR imaging of lumbar spine performed prior to and following intravenous administration of Gadolinium. Sequences obtained include, Sagittal plane:T1, T2 and STIR Axial plane: T1 and T2 at selected levels. Post gadolinium sequences: T1 in sagittal and axial plane. CLINICAL INDICATION: Lumbago with sciatica, history of lumbar surgery, chronic bilateral low back pain COMPARISON: MRI lumbar spine 12/27/2023 FINDINGS: For the purposes of this dictation, the last well-formed disc space is designated L5-S1. For the sake of clarity, the L5-S1 disc space corresponds to series 5, image 42 on axial T2-weighted images. Postsurgical changes status post right-sided hemilaminectomies at L3-L4 and L4- L5. As before, there is associated enhancing soft tissue in the laminectomy bed extending to the dorsal epidural space, again in keeping with postoperative granulation tissue. Mild grade 1 anterolisthesis of L4 on L5 and L5 on S1. Mild retrolisthesis of L2 on L3 and L3 on L4. Small L5 superior endplate Schmorl's node, otherwise vertebral body heights are preserved. Scattered degenerative marrow signal changes, greatest along the posterior superior L5 vertebral body and bilateral L5 pedicles. No focal suspicious bone marrow signal abnormality is identified. Disc desiccation and loss of disc height from L3-S1. Enhancement in the posterior soft tissues from L3-L5 likely compatible with postoperative granulation tissue. No fluid collection in the posterior soft tissues is identified. The conus terminates normally at the mid body of L2. T12-L1: No significant spinal canal or neural foraminal stenosis. L1-L2: No significant spinal canal or neural foraminal stenosis. L2-L3: Small disc bulge, facet arthrosis, and ligamentum flavum hypertrophy. Mild spinal canal stenosis without significant neural foraminal stenosis. No significant change. Small synovial cyst projecting posteriorly off the left facet joint. L3-L4: Postsurgical changes status post right-sided hemilaminectomy. Diffuse disc bulge with superimposed superiorly and inferiorly migrating central disc extrusion and small annular fissure, facet arthrosis, and ligamentum flavum hypertrophy. Mild spinal canal stenosis and mild bilateral neural foraminal stenosis. No significant change. L4-L5: Postsurgical changes status post right-sided hemilaminectomy. Diffuse disc bulge with superimposed superiorly migrating left paracentral disc extrusion, small annular fissure, facet arthrosis, and ligamentum flavum hypertrophy. Severe spinal canal stenosis and moderate bilateral neural foraminal stenosis bilateral facet effusions. Degree of spinal canal stenosis has progressed from the prior exam. L5-S1: Diffuse disc bulge with superimposed small central disc protrusion, facet arthrosis, and ligamentum flavum hypertrophy. No significant spinal canal stenosis. Mild right and mild-moderate left neural foraminal stenosis. No significant change. Bilateral facet effusions with small synovial cysts projecting posteriorly off the bilateral facet joints. Small synovial cyst also projects superomedially off the right facet joint likely contacting the dorsal thecal sac, without significant sac deformity. This study is not optimized for evaluation of the retroperitoneal structures. Within this limitation, no gross pathology. Resulting Agency Comment [id number] Procedure Note Reginaldo Peng MD - 02/22/2025 EXAMINATION: MRI of lumbar spine without and with contrast PHARMACEUTICAL: Weight-based dosage of intravenous Gadolinium-based contrast agent wasadministered, as per department protocol. TECHNIQUE: Multiplanar and multisequence MR imaging of lumbar spine performed priorto and following intravenous administration of Gadolinium. Sequences obtained include, Sagittal plane:T1, T2 and STIR Axial plane: T1 and T2 at selected levels. Post gadolinium sequences: T1 in sagittal and axial plane. CLINICAL INDICATION: Lumbago with sciatica, history of lumbar surgery,chronic bilateral low back pain COMPARISON: MRI lumbar spine 12/27/2023 FINDINGS: For the purposes of this dictation, the last well-formed disc space isdesignated L5-S1. For the sake of clarity, the L5-S1 disc spacecorresponds to series 5, image 42 on axial T2-weighted images. Postsurgical changes status post right-sided hemilaminectomies at L3-L4and L4- L5. As before, there is associated enhancing soft tissue in thelaminectomy bed extending to the dorsal epidural space, again in keepingwith postoperative granulation tissue. Mild grade 1 anterolisthesis of L4on L5 and L5 on S1. Mild retrolisthesis of L2 on L3 and L3 on L4. Small [id number] endplate Schmorl's node, otherwise vertebral body heights arepreserved. Scattered degenerative marrow signal changes, greatest alongthe posterior superior L5 vertebral body and bilateral L5 pedicles. Nofocal suspicious bone marrow signal abnormality is identified. Disc desiccation and loss of disc height from L3-S1. Enhancement in theposterior soft tissues from L3-L5 likely compatible with postoperativegranulation tissue. No fluid collection in the posterior soft tissues isidentified. The conus terminates normally at the mid body of L2. T12-L1: No significant spinal canal or neural foraminal stenosis. L1-L2: No significant spinal canal or neural foraminal stenosis. L2-L3: Small disc bulge, facet arthrosis, and ligamentum flavumhypertrophy. Mild spinal canal stenosis without significant neuralforaminal stenosis. No significant change. Small synovial cyst projectingposteriorly off the left facet joint. L3-L4: Postsurgical changes status post right-sided hemilaminectomy.Diffuse disc bulge with superimposed superiorly and inferiorly migratingcentral disc extrusion and small annular fissure, facet arthrosis, andligamentum flavum hypertrophy. Mild spinal canal stenosis and mildbilateral neural foraminal stenosis. No significant change. L4-L5: Postsurgical changes status post right-sided hemilaminectomy.Diffuse disc bulge with superimposed superiorly migrating left paracentraldisc extrusion, small annular fissure, facet arthrosis, and ligamentumflavum hypertrophy. Severe spinal canal stenosis and moderate bilateralneural foraminal stenosis bilateral facet effusions. Degree of spinalcanal stenosis has progressed from the prior exam. L5-S1: Diffuse disc bulge with superimposed small central disc protrusion,facet arthrosis, and ligamentum flavum hypertrophy. No significant spinalcanal stenosis. Mild right and mild-moderate left neural foraminalstenosis. No significant change. Bilateral facet effusions with smallsynovial cysts projecting posteriorly off the bilateral facet joints.Small synovial cyst also projects superomedially off the right facet jointlikely contacting the dorsal thecal sac, without significant sacdeformity. This study is not optimized for evaluation of the retroperitonealstructures. Within this limitation, no gross pathology. IMPRESSION: 1. Postsurgical changes status post right-sided hemilaminectomies atL3-L4 and and L4-L5. 2. Multilevel multifactorial degenerative changes in the lumbar spine,progressed at L4-L5, where there is now severe spinal canal stenosis. 3. Varying degrees of neural foraminal stenosis, up to moderate at L4-L5,not significantly changed. 4. Bilateral facet effusions at L3-L4 and L4-L5 with small synovialcysts. If this radiology report contains a blank impression section, it is anincomplete radiology report. Please contact the interpreting radiologistor applicable radiology division as soon as possible to obtain thecompleted interpretation. Workstation ID: [id number] Umberto Stephen [facility] [place] MRI PROCEDURES Edited Res ult - Final * MARCO Bilateral Screening Digital Mammogram With Miguel Ángel (11/07/2024 4:34 PM EDT) Anatomical Region Laterality Modality Breast Bilateral Mammography Narrative 11/19/2024 6:57 AM EDT Jammie Johnson Exam Date: 11/07/[address] [address] EXAMINATION MARCO Bilateral Screening Digital Mammogram With Miguel Ángel. INDICATION Jammie Johnson is a 54 y.o. female and is seen for: screening. CC and MLO views were obtained. FDA approved [employer] AI (artificial intelligence) software and R2 CAD were used as a concurrent reading aid in the interpretation of this study. COMPARISON Relevant prior exams in PACS. Bilateral Breast Findings: The breasts are heterogeneously dense, which may obscure small masses. No significant masses, calcifications or other abnormalities are seen. IMPRESSION No evidence of malignancy. BI-RADS ATLAS category (overall): 1 - Negative MANAGEMENT Routine Screening Mammogram in 1 Year is recommended for bilateral. The patient was entered into a reminder system with a subsequent mammography target date. The patient s lifetime risk for breast cancer was calculated as: Racheler-Jethrock: 12.08%. For high-risk women (life-time risk greater than 20%), regardless of breast density, supplemental screening with annual breast MRI is recommended in addition to annual mammography, ideally staggered at 6-month intervals. Women with dense breast tissue and lifetime risk less than 20% may also benefit from supplemental screening with breast MRI ([employer] order M RI BREAST BILATERAL SCREENING W WO CONTRAST ) or automated breast ultrasound ([employer] order A BUS ) depending on risk factors. https://acsearch.acr.org/docs/7618097/Narrative/ TC score is not calculated for women with personal history of breast cancer or if age >80 years. If this radiology report contains a blank impression section, it is an incomplete radiology report. Please contact the interpreting radiologist or applicable radiology division as soon as possible to obtain the completed interpretation. Rosa Cm MD Resulting Agency Comment [id number] us Katy Montague NP IMG BI PROCEDURES Final Resul t * (ABNORMAL) Comprehensive Metabolic Panel (11/03/2024 11:51 AM EDT) NA 139 136 - 145 mmol/L 11/03/2024 12:27 PM EDT [facility] K 3.5 3.5 - 5.1 mmol/L 11/03/2024 12:27 PM EDT [facility] Cl 105 98 - 109 mmol/L 11/03/2024 12:27 PM EDT [facility] CO2 23 22 - 32 mmol/L 11/03/2024 12:27 PM EDT [facility] Anion Gap 15 >=0 11/03/2024 12:27 PM EDT [facility] Glucose 96 60 - 99 mg/dL 11/03/2024 12:27 PM EDT [facility] Creatinine 0.43(L) 0.50 - 1.12 mg/dL 11/03/2024 12:27 PM EDT [facility] Calcium 9.4 8.4 - 10.4 mg/dL 11/03/2024 12:27 PM EDT [facility] Total Protein 7.2 6.6 - 8.7 g/dL 11/03/2024 12:27 PM EDT [facility] Albumin 4.3 3.5 - 5.0 g/dL 11/03/2024 12:27 PM EDT [facility] Bilirubin, Total 0.3 0.2 - 1.2 mg/dL 11/03/2024 12:27 PM EDT [facility] Alkaline Phosphatase 111 40 - 129 U/L 11/03/2024 12:27 PM EDT [facility] AST 20 0 - 33 U/L 11/03/2024 12:27 PM EDT [facility] ALT 15 <=33 U/L 11/03/2024 12:27 PM EDT [facility] BUN 7 6 - 20 mg/dL 11/03/2024 12:27 PM T [facility] eGFR >90 >=60 mL/min/1. 73m2 11/03/2024 12:27 PM EDT [facility] Comment:The estimated glomer ular filtration rate (eGFR) is calculated using a new formula developed by the NKF-ASN task force to eliminate race-based correction factors. The new formula uses serum/plasma creatinine, age, and gender to determine eGFR. A value below 60mls/min might indicate kidney disease and will be flagged. For additional information, see Corky piña al, Am J Kidney Dis. 2021;79(2):268- 288, A Unifying Approach for GFR estimation: Recommendations of the NKF-ASN Task Force on Reassessing the Inclusion of Race in Diagnosing Kidney Disease . Globulin, Total 2.9 2.1 - 4.2 g/dL 11/03/2024 12:27 PM EDT [facility] A/G Ratio 1.5 1.5 - 3.0 11/03/2024 12:27 PM EDT [facility] Blood Structure of peripheral vein / Unknown Venipuncture / Unknown 11/03/2024 11:51 AM EDT 11/03/2024 11:56 AM EDT us Katy Erickson MD LAB BLOOD ORDERABLES Final Res ult Performing Organization Address City/[facility]/ZIP Co de Phone Number [facility] [address] [facility] [address] [place] [address], [place] [phone] * Hepatitis C Antibody w/Reflex to HCV RNA, Quantitative PCR (07/03/2024 9:37 AM EDT) Hepatitis C Antibody NON-REACT ALLYSSA NON-REACT ALLYSSA 07/03/2024 5:26 PM EDT [facility] Comment: HCV antibody was non-reactive. There is no laboratory evidence of HCV infection. In most cases, no further action is required. However, if recent HCV exposure is suspected, a test for HCV RNA (test code 58409) is suggested. For additional information please refer to http://education.Kadmon.Adrenaline Mobility/faq/SGJ38u1 (This link is being provided for informational/ educational purposes only.) Blood Structure of peripheral vein / Unknown Venipuncture / Unknown 07/03/2024 9:37 AM EDT 07/03/2024 10:15 AM EDT Narrative [facility] - 07/03/2024 5:26 PM EDT [facility] Received Date:[id number] us Aysha Jackson NP LAB BLOOD ORDERABLES Final R esult [facility]AR[facility] CHICASMEMO [address] [place] [address] [address] Floor, [place] [address], [place] [phone] [employer] [address], [place] [address], [place] [phone] * COLONOSCOPY (04/13/2024) Narrative Procedure Note Norah Adkins MD - 04/13/2024 11:25 AM EST [facility] Patient Name: Jammie Johnson Procedure Date: 04/13/2024 11:25 AM Date of : 1970 Admit Type: Outpatient Age: 53 Room: GI PROCEDURE Gender: Female Note Status: Finalized Attending MD: Norah Adkins MD Procedure: Colonoscopy Indications: Clinically significant diarrhea of unexplained origin Comorbidities Providers: Norah Adkins MD Referring MD: Jabier Avendano MD (Referring MD) Requesting Provider: Medicines: Monitored Anesthesia Care Complications: No immediate complications. Estimated Blood Loss: Estimated blood loss: none. Procedure: After I obtained informed consent, the scope was passed under direct vision. Throughout theprocedure, the patient's blood pressure, pulse, and oxygen saturations were monitored continuously. The Colonoscope was introduced through the anus and advanced to the cecum, identified by appendiceal orifice and ileocecal valve. The colonoscopy was performed without difficulty. The patient tolerated the procedure well. The quality of the bowel preparation was evaluated using the BBPS (BostonBowel Preparation Scale) with scores of: Right Colon = 1 (portion of mucosa seen, but other areas not wellseen due to staining, residual stool and/or opaqueliquid), Transverse Colon = 2 (minor amount of residual staining, small fragments of stool and/or opaque liquid, but mucosa seen well) and Left Colon = 2 (minor amount of residual staining, small fragmentsof stool and/or opaque liquid, but mucosa seen well).The total BBPS score equals 5. The quality of the bowel preparation was fair. Findings: The perianal and digital rectal examinations were normal. Non-bleeding internal hemorrhoids were found during retroflexion. The hemorrhoids were medium-sized and Grade I (internal hemorrhoids thatdo not prolapse). The exam was otherwise without abnormality. Biopsies were taken with a cold forceps for histology. Impression: - Preparation of the colon was fair. - Non-bleeding internal hemorrhoids. - The examination was otherwise normal. - Biopsies were taken with a cold forceps for histology. Recommendation: - Await pathology results. - Return to my office in 4 weeks. Norah Adkins MD 04/13/2024 11:40:18 AM Number of Addenda: 0 Note Initiated On: 04/13/2024 11:25 AM us Norah Adkins MD PROVATION PROCEDURES Final Resul t * CT Lung Cancer Screening 12 Months Annual Follow Up (02/22/2024 11:48 AM EST) Anatomical Region Laterality Modality Chest Computed Tomogra phy 02/22/2024 12:5 3 PM EST Impressions 02/24/2024 1:43 PM EST Stable millimetric pulmonary nodules, no growing nodules. No adenopathy, no pleural abnormalities. Lung-RADS Category 2: Benign Appearance or Behavior Nodules with a very low likelihood of becoming a clinically active cancer due to size or lack of growth Lung-RADS Category Description 2: Continue annual screening with CT Lung Screening in 12 months Findings under this category can include: Perifissural nodule(s) < 10 mm (524 mm3) Solid nodule(s): < 6 mm (< 113 mm3) new < 4 mm (< 34 mm3) Part solid nodule(s): < 6 mm total diameter (< 113 mm3) on baseline screening Non solid nodule(s) (GGN): <30 mm (<64619 mm3) OR > or equal to 30 mm ( > [place] [address] mm3) and unchanged or slowly growing. Category 3 or 4 nodules unchanged for > or equal to 3 months. Modifier No clinically significant or potentially significant findings Schedule lung cancer screening CT/follow-up CT: ----- ----- This report uses Lung RADS version 1.1 (2019) [email or web address]?la=en If this radiology report contains a blank impression section, it is an incomplete radiology report. Please contact the interpreting radiologist or applicable radiology division as soon as possible to obtain the completed interpretation. Workstation ID: [id number] Up-to-date CT equipment and radiation dose reduction techniques were employed. CTDIvol: 1.1 mGy. DLP: 34 mGy-cm. Narrative 02/24/2024 1:[address] LUNG CANCER SCREENING 12 MONTHS ANNUAL FOLLOW UP INDICATION: CT lung cancer screening. COMPARISON: Screening CT from 02/18/2023 TECHNIQUE: Non-enhanced chest CT. Images were acquired with helical acquisition and low dose technique. Multiplanar reconstructions including MIP, MinIP and Slab images were reviewed. Note that low dose technique uses a low level of radiation exposure that provides adequate lung detail but limited image quality in the mediastinum and upper abdomen. For radiation dose control at least one of the following techniques was used in this procedure (1) Automated exposure control (2) Adjustment of the mA and/or kV according to patient size (3) Use of iterative reconstruction technique. FINDINGS: BASE OF NECK: No abnormalities of the thoracic inlet. LUNGS AND PLEURA: Mild centrilobular pulmonary emphysema. Stable millimetric calcified and noncalcified pulmonary nodules. No growing nodules. No pleural abnormalities. MEDIASTINUM: Normal appearance of the large mediastinal vessels. Minimal coronary calcifications. Small hiatal hernia. NODES: No adenopathy. UPPER ABDOMEN: No abnormalities of the upper abdomen, status post cholecystectomy. BONES/SOFT TISSUES: Mild degenerative vertebral disease. Resulting Agency Comment [id number] Procedure Note Evaristo Arceo MD PhD - 02/24/2024 CT LUNG CANCER SCREENING 12 MONTHS ANNUAL FOLLOW UP INDICATION: CT lung cancer screening. COMPARISON: Screening CT from 02/18/2023 TECHNIQUE: Non-enhanced chest CT. Images were acquired with helicalacquisition and low dose technique. Multiplanar reconstructions includingMIP, MinIP and Slab images were reviewed. Note that low dose techniqueuses a low level of radiation exposure that provides adequate lung detailbut limited image quality in the mediastinum and upper abdomen. For radiation dose control at least one of the following techniques wasused in this procedure (1) Automated exposure control (2) Adjustment ofthe mA and/or kV according to patient size (3) Use of iterativereconstruction technique. FINDINGS: BASE OF NECK: No abnormalities of the thoracic inlet. LUNGS AND PLEURA: Mild centrilobular pulmonary emphysema. Stable millimetric calcified and noncalcified pulmonary nodules. No growing nodules. No pleural abnormalities. MEDIASTINUM: Normal appearance of the large mediastinal vessels. Minimal coronary calcifications. Small hiatal hernia. NODES: No adenopathy. UPPER ABDOMEN: No abnormalities of the upper abdomen, status post cholecystectomy. BONES/SOFT TISSUES: Mild degenerative vertebral disease. IMPRESSION: Stable millimetric pulmonary nodules, no growing nodules. No adenopathy,no pleural abnormalities. Lung-RADS Category 2: Benign Appearance or Behavior Nodules with a verylow likelihood of becoming a clinically active cancer due to size or lackof growth Lung-RADS Category Description 2: Continue annual screening with CT Lung Screening in 12 months Findings under this category can include: Perifissural nodule(s) < 10 mm (524 mm3) Solid nodule(s): < 6 mm (< 113 mm3) new < 4 mm (< 34 mm3) Part solid nodule(s): < 6 mm total diameter (< 113 mm3) on baseline screening Non solid nodule(s) (GGN): <30 mm (<58930 mm3) OR > or equal to 30 mm ( [place] [address] mm3) and unchanged or slowly growing. Category 3 or 4 nodules unchanged for > or equal to 3 months. Modifier No clinically significant or potentially significant findings Schedule lung cancer screening CT/follow-up CT: ----- ----- This report uses Lung RADS version 1.1 (2019) [email or web address] If this radiology report contains a blank impression section, it is anincomplete radiology report. Please contact the interpreting radiologistor applicable radiology division as soon as possible to obtain thecompleted interpretation. Workstation ID: [id number] Up-to-date CT equipment and radiation dose reduction techniques wereemployed. CTDIvol: 1.1 mGy. DLP: 34 mGy-cm. 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
--- OUTSIDE RECORDS SUMMARY | 2025-03-01 03:18 | XMS_ITS | Data Portability ---
Author Organization [facility], svmg_admin Address [address] [place] [id number] Care Team Providers Care Conflict Resolution Professional Name Role Phone MILY GILL Referring Provider Unavailable SHAYAN SIN Primary Care Provider Assessment Encounter Date Assessment Date Assessment LastModified by Organization Details LastModified Time 07/09/2021 07/09/2021 ASSESSMENT: 50 y o female at high risk for breast cancer (23 - 31% lifetime risk) and extreme breast density. DISCUSSION: We discussed her calculated lifetime risk of breast cancer as between 23% and 31.3%. This means there is a 68.7% - 77% chance she will not get breast cancer in her lifetime. We discussed that women with risk factors for breast cancer need earlier and more intensive screening. The [place] [employer] (ACS) recommends that all high-risk women those with a greater than 20% lifetime risk of breast cancer have a breast MRI and a mammogram every year. High-risk women include those who find out they have a lifetime risk of breast cancer of 20-25% or greater, according to risk assessment tools that are based mainly on family history. We discussed her extreme breast density. High mammographic density (MD) is associated with a significant increase in breast cancer risk, with those in the highest quintile of MD having 4 6 -fold increased risk compared to women in the lowest quintile of MD (Sis SLizzy S. & Frida Dixon. An overview of mammographic density and its association with breast cancer. Breast Cancer 25, 549 2 67 (2018)). As such, she would benefit from annual mammography offset by 6 months with annual breast MRI based on her high breast density. We reviewed her pathology report (she had already reviewed it with her PCP). The findings are benign. Next we reviewed the physical exam finding of a dense Tail of Solis and palpable axillary tissue on the LEFT which is asymmetric compared to the RIGHT. Though the axillary finding is clinically consistent with a dense Tail of Solis extending to the axilla on the LEFT, it is important to show that no adenopathy exists. Therefore, we shall obtain an US of the LEFT axilla. We discussed life style modifications which can lower risk of breast cancer of not smoking, keeping to ideal body weight, eating a low fat diet , keep alcohol intake to no more than one drink per day and to have an exercise goal of at least 150 minutes a week of moderate aerobic activity or 75 minutes of vigorous aerobic activity weekly, plus strength training at least twice a week. Finally, limiting post-menopausal hormone therapy may reduce risk. PLAN: 1) Active surveillance protocol (annual mammogram and annual MRI offset by 6 months and Q6 month CBE) 2) mammogram annually due on or about 03/27/2022 3) MRI annually start on or about 09/25/2021 as 6 month f/u for prior MRI abnormality 4) US LEFT axilla to exclude adenopathy vs. dense Tail of Solis 5) f/u in 6 months then annually thereafter TOTAL TIME: 60 minutes in [id number]-jt-lheq encounter including counseling and discussion as well as additional time for review of the patient record, pathology reports, personal review of radiology images, pathology reports, consultation with colleagues, coordination of care and education of patient. Not available 07/09/2021 18:27:09 12/31/2021 12/31/2021 ASSESSMENT: 50 y o female at high risk for breast cancer (23 - 31% lifetime risk) and extreme breast density. Prior palpable nodular density in the LEFT axillary tail of Solis is much smaller and difficult to find today. US done 10/14/2021 did show a 1.3 cm mass. DISCUSSION: We discussed her calculated lifetime risk of breast cancer as between 23% and 31.3%. This means there is a 68.7% - 77% chance she will not get breast cancer in her lifetime. We discussed that women with risk factors for breast cancer need earlier and more intensive screening. The [place] [employer] (ACS) recommends that all high-risk women those with a greater than 20% lifetime risk of breast cancer have a breast MRI and a mammogram every year. High-risk women include those who find out they have a lifetime risk of breast cancer of 20-25% or greater, according to risk assessment tools that are based mainly on family history. We discussed her extreme breast density. High mammographic density (MD) is associated with a significant increase in breast cancer risk, with those in the highest quintile of MD having 4 6 -fold increased risk compared to women in the lowest quintile of MD (Sis SLizzy S. & Frida Dixon. An overview of mammographic density and its association with breast cancer. Breast Cancer 25, 259 2 67 (2018)). As such, she would benefit from annual mammography offset by 6 months with annual breast MRI based on her high breast density. Next we reviewed the physical exam finding of a dense Tail of Solis and palpable axillary tissue on the LEFT which is asymmetric compared to the RIGHT. US of the LEFT axilla revealed a 1.0 x 0.5 x 1.3 cm hypoechoic, parallel, oval mass with microlobulated margins at the 1:00 position, 9-10 cm from the nipple. However the physical examination is improved with a much less obvious mass today. Thus, I agree with the radiologist's recommendation to repeat US 6 months after the prior US done 10/14/2021 to determine if the 1.3 cm mass persists. If it is still present, then US guided biopsy is recommended. If not, then will continue to follow clinically. She will follow up in one year unless repeat imaging shows worrisome abnormality. We discussed life style modifications which can lower risk of breast cancer of not smoking, keeping to ideal body weight, eating a low fat diet , keep alcohol intake to no more than one drink per day and to have an exercise goal of at least 150 minutes a week of moderate aerobic activity or 75 minutes of vigorous aerobic activity weekly, plus strength training at least twice a week. Finally, limiting post-menopausal hormone therapy may reduce risk. PLAN: 1) Active surveillance protocol (annual mammogram and annual MRI offset by 6 months and Q6 month CBE) 2) mammogram annually due on or about 10/24/2022 3) MRI annually due on or about 04/27/2022 4) 6 month follow up US of 1.0 x 0.5 x 1.3 cm hypoechoic, parallel, oval mass with microlobulated margins LEFT breast 1:00 position, 9-10 cm from the nipple. Due on or about 04/16/2022. 5) f/u after US and MRI done in April 2022. 02/05/2022 ADDENDUM: Follow up US performed on 02/02 of 1:00 of the LEFT breast was performed, 9 to 10 cm from the nipple. Circumscribed hyperechoic mass with microlobulated margins and mild vascularity measuring 1.1 x 1.1 x 0.5 cm. Pathology reports are now available from ultrasound guided biopsy of left breast mass. Pathology describes fibroadenoma. Findings are benign and concordant . TOTAL TIME: 60 minutes. 30 minutes were spent in hbrf-mu-wayi encounter including counseling and discussion. 20 minutes additional time for review of the patient record, pathology reports, personal review of radiology images, pathology reports, consultation with colleagues, coordination of care and education of patient. 10 minutes was used to document the visit and for follow up of any issues that arose during the visit or to address any issues not addressed prior to the visit and/or for literature/guidel ramos of care review. Not available 02/05/2022 10:04:38 06/15/2022 06/15/2022 ASSESSMENT: 51 y o female at high risk for breast cancer (23 - 31% lifetime risk) and extreme breast density. 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 MRI done on 04/27/2022 showed 2 enhancing foci in the LEFT breast consistent with fibroadenomas for which short term follow up in 6 months was ordered. DISCUSSION: We discussed the findings on MRI and the radiologist's recommendation for 6 month follow up. She was also offered MRI directed biopsy. She wishes to have 6 month follow up. We discussed her calculated lifetime risk of breast cancer as between 23% and 31.3%. This means there is a 68.7% - 77% chance she will not get breast cancer in her lifetime. We discussed that women with risk factors for breast cancer need earlier and more intensive screening. The [place] [employer] (ACS) recommends that all high-risk women those with a greater than 20% lifetime risk of breast cancer have a breast MRI and a mammogram every year. High-risk women include those who find out they have a lifetime risk of breast cancer of 20-25% or greater, according to risk assessment tools that are based mainly on family history. We discussed her extreme breast density. High mammographic density (MD) is associated with a significant increase in breast cancer risk, with those in the highest quintile of MD having 4 6 -fold increased risk compared to women in the lowest quintile of MD (Reji Alegre. & Frida Dixon. An overview of mammographic density and its association with breast cancer. Breast Cancer 25, 259 2 67 (2018)). As such, she would benefit from annual mammography offset by 6 months with annual breast MRI based on her high breast density. We discussed life style modifications which can lower risk of breast cancer of not smoking, keeping to ideal body weight, eating a low fat diet , keep alcohol intake to no more than one drink per day and to have an exercise goal of at least 150 minutes a week of moderate aerobic activity or 75 minutes of vigorous aerobic activity weekly, plus strength training at least twice a week. Finally, limiting post-menopausal hormone therapy may reduce risk. PLAN: 1) Active surveillance protocol (annual mammogram and annual MRI offset by 6 months and Q6 month CBE) 2) annual mammogram due on or about 10/24/2022 3) annual MRI due on or about 04/27/2023 4) 6 month follow up MRI for 2 LEFT breast enhancing foci has been ordered for 10/27/2022 (order placed on 04/29/2022) 5) f/u 1 year TOTAL TIME: 50 minutes. 20 minutes were spent in tjet-im-yqew encounter including counseling and discussion. 20 minutes additional time for review of the patient record, pathology reports, personal review of radiology images, pathology reports, consultation with colleagues, coordination of care and education of patient. 10 minutes was used to document the visit and for follow up of any issues that arose during the visit or to address any issues not addressed prior to the visit and/or for literature/guidel ramos of care review. Thank you for the privilege of participating in this patient's care. Not available 06/15/2022 15:22:44 06/14/2023 06/14/2023 ASSESSMENT: 52 y o female at high risk for breast cancer (23 - 31% lifetime risk) and extreme breast density. 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 MRI done on 04/27/2022 showed 2 enhancing foci in the LEFT breast consistent with fibroadenomas for which short term follow up in 6 months was ordered. Imaging has been stable and benign. She is ANTONIO on exam today. DISCUSSION: We previously discussed her calculated lifetime risk of breast cancer as between 23% and 31.3%. This means there is a 68.7% - 77% chance she will not get breast cancer in her lifetime. We discussed that women with risk factors for breast cancer need earlier and more intensive screening. The [place] [employer] (ACS) recommends that all high-risk women those with a greater than 20% lifetime risk of breast cancer have a breast MRI and a mammogram every year. High-risk women include those who find out they have a lifetime risk of breast cancer of 20-25% or greater, according to risk assessment tools that are based mainly on family history. We previously discussed her extreme breast density. High mammographic density (MD) is associated with a significant increase in breast cancer risk, with those in the highest quintile of MD having 4 € 6 -fold increased risk compared to women in the lowest quintile of MD (Sis SLizzy S. & Frida Dixon. An overview of mammographic density and its association with breast cancer. Breast Cancer 25, 259-267 (2018)). As such, she would benefit from annual mammography offset by 6 months with annual breast MRI based on her high breast density. We previously discussed life style modifications which can lower risk of breast cancer of not smoking, keeping to ideal body weight, eating a low fat diet , keep alcohol intake to no more than one drink per day and to have an exercise goal of at least 150 minutes a week of moderate aerobic activity or 75 minutes of vigorous aerobic activity weekly, plus strength training at least twice a week. Finally, limiting post-menopausal hormone therapy may reduce risk. PLAN: 1) Active surveillance protocol (annual mammogram and annual MRI offset by 6 months and Q6 month CBE) 2) annual mammogram due on or about 10/20/2023 3) annual MRI due on or about 04/26/2024 4) f/u 1 year TOTAL TIME: 45 minutes. 20 minutes were spent in [id number]-vm-stbq encounter including counseling and discussion. 15 minutes additional time for review of the patient record, pathology reports, personal review of radiology images, pathology reports, consultation with colleagues, coordination of care and education of patient. 10 minutes was used to document the visit and for follow up of any issues that arose during the visit or to address any issues not addressed prior to the visit and/or for literature/guidel ramos of care review. Thank you for the privilege of participating in this patient's care. In formulating my assessment and plan of care, I relied upon pertinent information that was provided to me or that was made aware to me. If such information proves to be inaccurate or incomplete, or if additional information is provided to me or made aware to me, then I may change, add to, add/or subtract from my assessment and plan of care. Note: Speech recognition pairing machine operator software was used to dictate portions of this document. An attempt at proof reading has been made though minor errors in pairing machine operator may still be present. Please do not hesitate to call our office with any questions. Not available 06/16/2023 22:27:05 Plan of Treatment Reminders Order Date Submit Date Provider Last Modified By Organization Details Last Modified Time Details Appointments None recorde d. Lab None recorde d. Referral genetic s referra l - 50 yo female whose sister of breast cancer (DX age 48 DOD age 52) and whose lifetim e risk calcula maria g to be about 20 - 30%. Please screen for pathoge johnny genetic mutatio n. 2021 022 [facility] (Genetic Counseling), [address] [place] [address], [id number], 15:18:29 Procedures biopsy, breast, w/ ultraso und guidanc e (PROC) - Due on or about 023. biopsy if mass persist s. 6 month follow up US of 1.0 x 0.5 x 1.3 cm hypoech oic, paralle l, oval mass with microlo bulated margins LEFT breast 1:00 positio n, 9-10 cm from the nipple. 2021 022 [email or web address] [facility](Proc edural Scheduling Department), [address] [place] [address], [id number], 3 21:29:29 Surgeries None recorde d. Imaging MAMMO, screeni ng, tomosyn thesis, bilater al - DUE ON OR ABOUT 024. HIGH RISK ACTIVE SURVEIL FRITZ. 52 yo female at high risk for breast cancer (23 - 31% lifetim e risk) and extreme breast density . 2023 024 [place] [id number] Mammography ([facility]), [address] [place], [address], 5 08:35:43 MRI, breast, w/wo contras t, bilater al, w/ CAD - DUE ON OR ABOUT 025. HIGH RISK ACTIVE SURVEIL FRITZ. 52 yo female at high risk for breast cancer (23 - 31% lifetim e risk) and extreme breast density . [address] (Central Scheduling For [facility]), [address] [place] [address], [id number], 5 08:25:02 MAMMO, screeni ng, tomosyn thesis, bilater al - due on or about 023. High risk active surveil fritz screeni ng. 2022 023 [facility] (Central Scheduling For Imaging And Labs), [address] [place] [address], [id number], 3 08:39:03 MRI, breast, w/wo contras t, bilater al, w/ CAD - due on or about 024. High risk active surveil fritz protoco l 2022 024 [facility] (Central Scheduling For Imaging And Labs), [address] [place] [address], [id number], 4 10:05:54 MAMMO, screeni ng, tomosyn thesis, bilater al - due on or about 023. Annual mammogr am. Patient with > 20% lifetim e risk of breast cancer. 2021 022 [facility] (Central Scheduling For Imaging And Labs), [address] [place] [address], [id number], 3 16:04:38 MRI, breast, bilater al, w/wo contras t - due on or about 023 High risk active surveil fritz protoco l. [address] (Central Scheduling For Imaging [facility] Labs), [address] [place] [address], [address], 3 10:34:21 US, breast, unilate ral - Due on or about 023. 6 month follow up US of 1.0 x 0.5 x 1.3 cm hypoech oic, paralle l, oval mass with microlo bulated margins LEFT breast 1:00 positio n, 9-10 cm from the nipple. [address] (Central Scheduling For Imaging [facility] Labs), [address] [place] [address], [address], 3 13:25:08 MRI, breast, bilater al, w/wo contras t - Due on or about 09/26/19 22. 6 month follow up of prior noted MRI abnorma lity in high risk patient 2021 [facility] (Central Scheduling For Imaging And Labs), [address] [place] [address], [id number], 3 15:54:17 MAMMO, screeni ng, tomosyn thesis, bilater al - Due on or about 022. High risk active surveil fritz screeni ng 2021 022 [facility] (Central Scheduling For Imaging And Labs), [address] [place] [address], [address], 2 15:09:11 US, axilla - HIGH risk for breast cancer with palpabl e nodule in LEFT axilla. Please exclude enlarge d LN vs. nodular and dense Tail of Solis. 2021 022 josh [facility] (Central Scheduling For Imaging And Labs), [address] [place] [address], [id number], 16:15:34 Medication Orders None recorde d. Patient TargetsNo targets recorded. Patient Instructions Encounter Date Encounter Id Patient Instructions Last Modified By Organization Details Last Modified Time 07/09/2021 [id number] A healthy lifestyle: care instructions Not available 07/09/2021 18:32:26 Reason for Referral Genetics Referral for At hig h risk for malignant neoplasm of breast 50 yo female whose sister of breast cancer (DX age 48 DOD age 52) and whose lifetime risk calculates to be about 20 - 30%. Please screen for pathogenic genetic mutation. Referring Physician: Mily Gill, General Surgery, Encounter Date: 07/09/2021 Results Created Date Observation Date Name Description Value Unit Range Abnormal Flag Note LastModifiedBy Organization Detail LastModifiedTime 02/03/20 22 02/02/2022 biops y, tissu e results \H\Abebe rgica l Patho logy Repor t\N\ Speci men Numbe r: [id number] Final Diagn osis Diagn osis: BREAS T, LEFT ULTRA SOUND GUIDE D BIOPS Y FIBRO ADENO MA. Note: This case was revie wed at Depar tment al [facility] rence with concu rrenc e on 02/04 . Diagn osis Patho logis t: Elect rizwana feliz Elena d by: Natasha Estes MD Proce dure Date: 02/02 Speci men Recei lisbeth: 02/03 Date of Diagn osis: 02/04 Gross Descr iptio n: The speci men is recei lisbeth in forma henok label ed with the patie nts name, medic al recor d numbe r, and left breas t biops y and consi sts of three , fragm ented , cylin drevan l, yello w-whi te, fibro fatty core tissu es, rangi ng from 0.5 - 0.7 cm in lengt h and avera ging 0.[address] The speci men is entir ursula submi tted in one casse tte. Not Available [facility] [address] [place] [address], [id number], 02/04/2022 16:43:11 02/03/20 22 02/02/2022 biops y, tissu e note Order ing physi elke: Noree n LaSal le-Gr een Other provi ders: Mily Cadenaf f, Mily Emhof f, , Tami Aguilera e, , , Not Available [facility] [address] [place] [address], [id number], 02/04/2022 16:43:11 10/15/19 22 10/14/2021 [facility] [address] [place] [address], [id number] Name: STERLING GALEANO EN : [id number] Date of Servic e: 1115 Acct Number : [id number] Order Number : [id number] Locati on: WWELL Report Number : [id number] Servic e: PRE REF/ Reques ting Physic delores: Mily Gill MD Catego ry: ULTRAS OUND Exam: US BREAST UNILAT ERAL LIMITE D Access ion #: [id number] Signs/ Sympto ms: LEFT AXILLA Report Status : Sig antonio Target ed ultras ound left breast limite d. HISTOR Y: 51 years Female left axilla ry mass palpat ed by tomer mustafa'edward physic delores. COMPAR KEVIN: Same day screen ing mammog lucila. Danielle anthony [facility] ULTRAS OUND FINDIN GS: Target ed left breast ultras ound was perfor med in the palpab le area of concer n at the 1:00 positi on, 9-10 cm from the nipple . There is a 1.0 x 0.5 x 1.3 cm hypoec hoic, parall el, oval mass with microl obulat ed margin s. No public relations intern al vascul arity seen. IMPRES ANA: Left breast : 1.3 cm mass in the area of palpab le concer n, probab ly benign given morpho logy. Probab ly benign . As long as the patien t's physic al examin ation remain s normal , left breast ultras ound is recomm ended in 6 months . Result s and recomm endati on were discus sed with the patien t. Furthe r manage ment of any persis tent palpab le findin gs should be based on the clinic al level of concer n. Negati ve imagin g findin gs should not preclu de biopsy of any clinic ally suspic ious palpab le findin g. REPORT SUMMAR Y: BR- 3 - Probab ly Benign FU- 6M - Follow up at short term interv al - 6 months Patien t was entere d into a remind er system for annual screen ing mammog lucila notifi cation . Attend ing review by Zaria Ruvalcaba M.D. I have person ally review ed the study and agree with the report ed findin gs. Date/T tyrell of Dictat ion: 1147 Radiol ogy Reside nt (if applic able): Julisa Lam MD Approv ed By Attend ing Radiol ogist: Frederic Ruvalcaba MD 1147 Orderi ng physic delores: Mily Gill Other provid ers: Mily Gill , Mily Gill , , UNKNOW N, , , [facility] (Radiology) [address] [place] [address], [id number], 10/14/2021 13:02:11 10/25/19 22 10/24/2021 MAMMO , scree akira, tomos ynthe sis, bilat eral [facility] [address] [place] [address], [id number] Name: STERLING GALEANO EN : [id number] [id number] Order Number : [id number] Locati on: MICHAEL Report Number : [id number] Servic e: REG REF/ Reques ting Physic delores: Mily Gill MD ry: MAMMOG UNIQUE Exam: DIGITA L BREAST LINO SCREEN ING Access ion #: [id number] [id number] Signs/ Sympto ms: SCREEN ING Report Status : Sig antonio STUDY: Bilate ral screen ing mammog lucila with CAD and tomosy nthesi s. TECHNI QUE: Bilate ral cranio caudal and mediol ateral obliqu e views obtain ed. R2 [employer] Versio n 1.3 comput er aided detect ion system utiliz ed.R2 [employer] Versio n 1.3 comput er aided detect ion system utiliz ed with Tomosy nthesi s. COMPAR KEVIN: No prior mammog niles are availa ble for compar kevin at comple tion of 10 day waitin g period . FAMILY HISTOR Y OF BREAST CANCER : Sister diagno sed at age 47. PERSON AL HISTOR Y: Right breast biopsi es, benign . BREAST COMPOS ITION: The breast s are hetero geneou sly dense, which may obscur e small masses . RIGHT BREAST : Tomosy nthesi s images were review ed. No suspic ious mass, abnorm al calcif icatio n or ramses ectura l distor tion is identi fied. Two surgic al clips are again seen in the upper outer breast . Intram ammary lymph nodes are seen in the upper outer quadra nt. LEFT BREAST : Tomosy nthesi s images were review ed. No suspic ious mass, abnorm al calcif icatio n or ramses ectura l distor tion is identi fied. IMPRES ANA: Bilate ral breast s: Stable mammog lucila, no mammog raphic eviden ce of malign nazario. Recomm end patien t return in one year for routin e screen ing mammog unique. BR- 2 - Benign Findin g FU- 1Y - Normal screen ing interv al D- C - Breast are hetero geneou sly dense, may obscur e small masses Patien t was entere d into remain tara for annual screen ing mammog lucila. Attend ing review by Livia paul M.D., at approx imatel y 022 3:04 PM: I have review ed the case and agree with the report ed delonte gs. Date/T tyrell of Dictat ion: 1507 Radiol ogy Reside nt (if applic able): Jose E Hernandez MD Approv ed By Attend ing Radiol ogist: Lazaro Tyler MD 1507 Orderi ng physic delores: Mily Gill Other provid ers: Mily Gill , Mily Gill , , Jabier Avendano , , , [facility] (Radiology) [address] [place] [address], [address], 10/27/2021 09:35:00 02/03/20 22 02/02/2022 , [facility], [facility] Depart ment of Radiol ogy [address] [place] [address], [address] Name: STERLING GALEANO EN : [id number] Date of Servic e: 1454 Acct Number : [id number] Order Number : [id number] Locati on: [facility] Report Number : [id number] Servic e: REG REF/ Reques ting Physic delores: Mily Gill MD Catego ry: MAMMOG UNIQUE Exam: UNILAT ERAL DIGITA L LEFT Access ion #: [id number] Signs/ Sympto ms: S/P BIOPSY CLIP PLACEM ENT Report Status : Sig antonio LIMITE D ULTRAS OUND, ULTRAS OUND-G UIDED BREAST BIOPSY AND CLIP PLACEM ENT INDICA TION: Left breast mass. Tissue diagno sis reques caprice. COMPAR KEVIN: Ultras ound 10/15/19 22. PROCED URE: Limite d sonogr aphic examin ation of the 1:00 of the left breast was perfor med, 9 to 10 cm from the nipple . Circum scribe d hypere choic mass with microl obulat ed margin s and mild vascul arity measur ing 1.1 x 1.1 x 0.5 cm. After explai akira the risks (inclu ding but not limite d to pain, bleedi ng, infect ion, allerg ic reacti on) and benefi ts of the proced ure, writte n inform ed consen t was obtain ed by the [facility]i [facility] del[facility], Dr. Marc paul. The proced ure site was marked by the [facility] physic delores. The 1:00 of the left breast area was preppe d and draped in the usual steril e fashio n. Ultras ound transd ucer was placed on the 1:00 left breast . Under local anesth esia with and contin ued ultras ound guidan ce, a 13-gau ge biopsy needle was advanc ed to the breast mass. With a 14-gau ge biopsy device , 3 core biopsy specim ens were obtain ed which subseq uently were sent to pathol ogrenee. A onel shaped clip was placed at the biopsy site. Subseq uent mammog lucila demons trated the positi on of the clip at 1:00, 9 to 10 cm from the nipple . The patien t tolera caprice the proced ure well. There were no immedi ate compli cation s. The entire proced ure was superv ised by the [facility] physic del[facility]. The patien t was discha rged in stable condit ion with standa rd depart mental post-b reast biopsy instru ctions . IMPRES ANA: 1. Techni ana succes sful ultras ound-g uided biopsy of left breast lesion and clip placem ent. Pathol ogy pendin g. [facility] review by Livia paul M.D., at approx imatel y 2021 3:21 PM: I was presen t for the entire proced ure, review ed the case and agree with the report edilberto adams. 1. Date/T tyrell of Dictat ion: 152 Radiol ogy Reside nt (if applic able): Ursula Honeycutt MD Approv ed By [facility] Radiol [facility]ist: Lazaro Tyler MD 1522 Orderi ng physic delores: Mily Gill Other provid ers: Mily Gill , Mily Gill , , Jabier Avendano , , , [email or web address] [facility] (Radiology) [address] [place] [address], [address], 06/19/2022 13:25:08 02/03/20 22 02/02/2022 US guide d breas t biops y [facility] [address] [place] [address], [address] Name: STERLING GALEANO EN : [id number] Date of Servic e: 1443 Acct Number : [id number] Order Number : [id number] Locati on: [facility] Report Number : [id number] Servic e: REG REF/ Reques ting Physic delores: Mily Gill MD Catego ry: ULTRAS OUND Exam: US GUIDED BREAST BIOPSY Left Access ion #: [id number] Signs/ Sympto ms: LEFT BREAST 1:00 9-10 CN FROM NIPPLE LUMP AXILLA RY TAIL Report Status : Sig antonio LIMITE D ULTRAS OUND, ULTRAS OUND-G UIDED BREAST BIOPSY AND CLIP PLACEM ENT INDICA TION: Left breast mass. Tissue diagno sis reques caprice. COMPAR KEVIN: Ultras ound 10/15/19. PROCED URE: Limite d sonogr aphic examin ation of the 1:00 of the left breast was perfor med, 9 to 10 cm from the nipple . Circum scribe d hypere choic mass with microl obulat ed margin s and mild vascul arity measur ing 1.1 x 1.1 x 0.5 cm. After explai akira the risks (inclu ding but not limite d to pain, bleedi ng, infect ion, allerg ic reacti on) and benefi ts of the proced ure, kirke n inform ed consen t was obtain ed by the teachi ng attend ing physic delores, Dr. Marc paul. The proced ure site was marked by the attend ing physic delores. The 1:00 of the left breast area was preppe d and draped in the usual steril e fashio n. Ultras ound transd ucer was placed on the 1:00 left breast . Under local anesth esia with and contin ued ultras ound guidan ce, a 13-gau ge biopsy needle was advanc ed to the breast mass. With a 14-gau ge biopsy device , 3 core biopsy specim ens were obtain ed which subseq uently were sent to pathol juanis. A onel shaped clip was placed at the biopsy site. Subseq uent mammog lucila demons trated the positi on of the clip at 1:00, 9 to 10 cm from the nipple . The patien t tolera caprice the proced ure well. There were no immedi ate compli cation s. The entire proced ure was superv ised by the [facility] physic [facility]. The patien t was discha rged in stable condit ion with standa rd depart mental post-b reast biopsy instru ctions . IMPRES ANA: 1. Techni ana succes sful ultras ound-g uided biopsy of left breast lesion and clip placem ent. Pathol juanis acosta g. [facility] review by Livia paul M.D., at approx imatel y 2021 3:21 PM: I was presen t for the entire proced ure, review ed the case and agree with the report ed findin gs. 1. Date/T tyrell of Dictat ion: 152 Radiol og Reside nt (if applic able): Ursula Honeycutt in MD Approv ed By [facility] Radiol ogist: Lazaro Tyler MD 152 Orderi physic delores: Mily Gill Other provid ers: Mily Gill , Mily Gill , , Jabier Avendano , , , [facility] (Radiology) [address] [place] [address], [place], [address], 02/02/2022 16:17:36 02/06/20 22 02/02/2022 unila teral digit al left [facility], later [facility] [address] , [place], [address] Name: STERLING GALEANO EN : [id number] Date of Servic e: 1453 Acct Number : [id number] Order Number : [id number] Locati on: [facility] Report Number : [id number] Servic e: REG REF/ Reques ting Physic delores: Mily Gill MD Catego ry: MAMMOG UNIQUE Exam: UNILAT ERAL DIGITA L LEFT Access ion #: [id number] VH Signs/ Sympto ms: S/P BIOPSY CLIP PLACEM ENT Report Status : Sig antonio LIMITE D ULTRAS OUND, ULTRAS OUND-G UIDED BREAST BIOPSY AND CLIP PLACEM ENT INDICA TION: Left breast mass. Tissue diagno sis reques caprice. COMPAR KEVIN: Ultras ound 10/15/19 22. PROCED URE: Limite d sonogr aphic examin ation of the 1:00 of the left breast was perfor med, 9 to 10 cm from the nipple . Circum scribe d hypere choic mass with microl obulat ed margin s and mild vascul arity measur ing 1.1 x 1.1 x 0.5 cm. After explai akira the risks (inclu ding but not limite d to pain, bleedi ng, infect ion, allerg ic reacti on) and benefi ts of the proced ure, writte n inform ed consen t was obtain ed by the teachi ng attend ing physic delores, Dr. Marc paul. The proced ure site was marked by the attend ing physic delores. The 1:00 of the left breast area was preppe d and draped in the usual steril e fashio n. Ultras ound transd ucer was placed on the 1:00 left breast . Under local anesth esia with and contin ued ultras ound malathi mukherjee, a 13-gau ge biopsy needle was advanc ed to the breast mass. With a 14-gau ge biopsy device , 3 core biopsy specim ens were obtain ed which subseq uently were sent to khari olivarez. A onel shaped clip was placed at the biopsy site. Subseq uent mammog lucila quinones trated the positi on of the clip at 1:00, 9 to 10 cm from the nipple . The patien t tolera caprice the proced ure well. There were no immedi ate compli cation s. The entire proced ure was superv ised by the attend ing physic delores. The patien t was discha rged in stable condit ion with standa rd depart mental post-b reast biopsy instru ctions . IMPRES ANA: 1. Techni ana succes sful ultras ound-g uided biopsy of left breast lesion and clip placem ent. Pathol ogy pendin g. [facility] review by Livia paul M.D., at approx imatel y 2021 3:21 PM: I was presen t for the entire proced ure, review ed the case and agree with the report ed findin gs. 1. Date/T tyrell of Dictat ion: 152 Radiol ogy Reside nt (if applic able): Ursula Honeycutt in MD Approv ed By [facility] Radiol ogist: Lazaro Tyler MD 1521 Add endum* Pathol ogy report s are now availa ble from ultras ound guided biopsy of left breast mass perfor med on 02/02. Pathol ogy descri bes fibroa denoma . Findin gs are benign and concor dant. Result s were left on patien t's answer ing edgardo e on 02/05 at 8:40. Addend um Approv ed Electr onical ly By/Juan Francisco e: Lazaro Tyler MD 0843 Orderi ng physic delores: Mily Gill Other provid ers: Mily Gill , Mily Gill , , Jabier Avendano , , , [facility] (Radiology) [address] [place] [address], [id number], 02/05/2022 10:06:10 02/06/20 22 02/02/2022 US guide d breas t biops y [facility] [address] [place] [address], [id number] Name: STERLING GALEANO : [id number] [facility]ic [id number] Order Number : [id number] Locati on: [facility] Report Number : [id number] Servic e: REG REF/ Reques ting Physic delores: Mily Gill MD Catego ry: ULTRAS OUND Exam: US GUIDED BREAST BIOPSY Left Access ion #: [id number] VH Signs/ Sympto ms: LEFT BREAST 1:00 9-10 CN FROM NIPPLE LUMP AXILLA RY TAIL Report Status : Sig antonio LIMITE D ULTRAS OUND, ULTRAS OUND-G UIDED BREAST BIOPSY AND CLIP PLACEM ENT INDICA TION: Left breast mass. Tissue diagno sis reques caprice. COMPAR KEVIN: Ultras ound 10/15/19 22. PROCED URE: Limite d sonogr aphic examin ation of the 1:00 of the left breast was perfor med, 9 to 10 cm from the nipple . Circum scribe d hypere choic mass with microl obulat ed margin s and mild vascul arity measur ing 1.1 x 1.1 x 0.5 cm. After explai akira the risks (inclu ding but not limite d to pain, bleedi ng, infect ion, allerg ic reacti on) and benefi ts of the proced ure, writte n inform ed consen t was obtain ed by the teachi ng attend ing physic delores, Dr. Marc paul. The proced ure site was marked by the attend ing physic delores. The 1:00 of the left breast area was preppe d and draped in the usual steril e fashio n. Ultras ound transd ucer was placed on the 1:00 left breast . Under local anesth esia with and contin ued ultras ound malathi mukherjee, a 13-gau ge biopsy needle was advanc ed to the breast mass. With a 14-gau ge biopsy device , 3 core biopsy specim ens were obtain ed which subseq uently were sent to khari olivarez. A onel shaped clip was placed at the biopsy site. Subseq uent mammog lucila joni trated the positi on of the clip at 1:00, 9 to 10 cm from the nipple . The patien t tolera caprice the proced ure well. There were no immedi ate compli cation s. The entire proced ure was superv ised by the attend ing physic delores. The patien t was discha rged in stable condit ion with standa rd depart mental post-b reast biopsy instru ctions . IMPRES ANA: 1. Techni ana succes sful ultras ound-g uided biopsy of left breast lesion and clip placem ent. Pathol ogy pendin g. [facility] review by Livia paul M.D., at approx imatel y 2021 3:21 PM: I was presen t for the entire proced ure, review ed the case and agree with the report ed findin gs. 1. Date/T tyrell of Dictat ion: 152 Radiol ogy Reside nt (if applic able): Ursula Honeycutt in MD Approv ed By [facility]end [facility] Radiol ogist: Lazaro Tyler MD 152 Add endum* Pathol ogy report s are now availa ble from ultras ound guided biopsy of left breast mass perfor med on 02/02. Pathol ogy descri bes fibroa denoma . Findin gs are benign and concor dant. Result s were left on patien t's answer ing edgardo e on 02/05 at 8:40. Addend um Approv ed Electr onical ly By/Juan Francisco e: Lazaro Tyler MD 0843 Orderi ng physic delores: Mily Gill Other provid ers: Mily Gill , Mily Gill , , Jabier Avendano , , , [facility] (Radiology) [address] [place] [address], [place], [address], 02/05/2022 10:06:11 04/27/19 23 04/27/2022 MRI, yudi mustafa, samantha rubio, w/wo contr ast [facility] Dep[facility] ment of Radiol ogy [address] [place] [address], [address] Name: STERLING GALEANO : [id number] Date of Servic e: 1038 Acct Number : [id number] Order Number : [id number] Locati on: [facility] Report Number : [id number] Servic e: REG REF/ Reques ting Physic delores: Mily Gill MD Catego ry: MAGNET IC RESONA NCE IMAGIN G Exam: MRI BREAST WO W CM+CAD BI Access ion #: [id number] Signs/ Sympto ms: AT HIGH RISK FOR BREAST CA Report Status : Sig antonio Bilate ral breast MRI with and withou t contra st. DynaCA D system utiliz ed. SIGNA Artist 1.5 T utiliz ed. INDICA TION: Active survei llance protoc ol. High-r isk for breast cancer . PATIEN T-PROV IDED HISTOR Y: Histor y of breast cancer in tomer mustafa's mother at age 47 MENSTR UAL HISTOR Y: First menses at age 13. Last menstr ual period at age 48. COMPAR KEVIN: Mammog lucila 2021, left breast ultras ound 10/15/19 22 TECHNI QUE: Initia l T1 nonfat satura caprice images are obtain ed follow ed by T2 imagin g with fat suppre ssion. Pre-T1 imagin g with fat suppre ssion follow ed by intrav enous inject ion of 11.3 mL ProHan ce. T1 post gadoli nium x 3 with subtra ction imagin g for each sequen ce over 5 minute s. Delaye d T1 images with fat suppre ssion. The examin ation is perfor med with the aid of DynaCA D softwa re-inc luding kineti c curves and histog lucila analys is. 3-D MIP multip lanar sequen batool are subseq uently obtain ed. Delaye d bilate ral T2 sagitt al imagin g and diffus ion-we ighted imagin g is also obtain ed. BREAST COMPOS ITION: Dense fibrog landul ar tissue . PARENC HYMAL ENHANC EMENT: Modera te backgr ound parenc hymal enhanc ement. FINDIN GS: RIGHT BREAST : No ramses ectura l distor tion, no mass or nonmas s enhanc ement. Scatte red small T2 hyperi ntense and enhanc ing foci, corres pondin g to normal lymph nodes. Note is made of two separa te locati ons of suscep tibili ty artifa ct due to presen ce of biopsy clips in the retrog landul ar region approx imatel y 1.2 cm supervisor green end department ior to the nipple and in the upper outer breast , approx imatel y 5 cm from the nipple , corres pondin g to findin gs on mammog lucila. LEFT BREAST : 2 small enhanc ing areas are noted in the left breast seen on series 501 image 115 in the supervisor green end department ior breast and series 501 image 108 in the mid latera l breast . Kineti cs demons trate a mixtur e of type I and type II kineti cs. There is a tiny area of washou t in the supervisor green end department ior focus. Six-mo nth follow -up MRI is sugges caprice for furthe r evalua tion. Findin gs may repres ent small fibroa denoma s. Patien t is status post ultras ound-g uided biopsy of the left breast in 2021 with pathol juanis leungg fibroa denoma . At the left retrog landul ar deep breast , upper outer region , toward s the axilla , there is suscep tibili ty artifa ct relate d to biopsy clip from fibroa denoma .. KINETI CS: Mixed kineti cs are noted in the 2 areas of enhanc ement in the left breast . OTHER: Partia lly visibl e intrat horaci c and overly ing soft tissue struct ures are unrema rkable . IMPRES ANA: No eviden ce of malign nazario. BI-RAD S: 2 enhanc ing foci in the left breast possib ly relate d to fibroa denoma s. Six-mo nth follow -up MRI is recomm ended to docume nt contin uing stabil ity. BI-RAD S CATEGO RY 3: Probab ly benign Report Summar y BR- 3 - Probab ly Benign FU- 6M - Follow up at short term interv al - 6 months Attend ing review by Dr. Livia paul M.D. I have person ally review ed the study and agree with the report ed findin gs. Date/T tyrell of Dictat ion: 1125 Radiol ogy Reside nt (if applic able): Ike Bruno MD Approv ed By [facility] Radiol ogist: Lazaro Tyler MD 2319 Orderi ng physic delores: Mily Gill Other provid ers: Mily Gill , Mily Gill , , Jabier Avendano , , , [facility] (Radiology) [address] [place], [address], 04/29/2022 16:36:31 10/20/19 23 10/19/2022 MAMMO , scree akira, tomos ynthe sis, bilat eral Tomer mustafa Name: JAMMIE GALEANO [phone] Locati on: [facility] [address] [place] [address]- Radiol ogy ACCESS ION EXAM DATE/T TYRELL PROCED URE ORDERI NG STATUS PROVID ER 813-MA - 15 023 [place] Rich Gill , Mily Auth 41 13:20 EDT Mammo (Verif ied) Screen ing Reason For Exam ([place] Digita l Mammo Screen ing) [id number] Report STUDY: Bilate ral screen ing mammog lucila with CAD and tomosy nthesi s. TECHNI QUE: Bilate ral cranio caudal and mediol ateral obliqu e views obtain ed. R2 Cenova Versio n 1.3 comput er aided detect ion system and tomosy nthesi s utiliz ed. COMPAR KEVIN: 10/15/19 22, 2021 FAMILY HISTOR Y: Histor y of breast cancer in tomer mustafa's sister at age 47. Person al histor y of benign biopsy on the right. BREAST COMPOS ITION: Hetero geneou sly dense which could obscur e small masses . RIGHT BREAST : No separa ble mass is eviden t. There is no ramses ectura l distor tion. 2 biopsy clips are presen t supervisor green end department ior and latera l to the right nipple . No abnorm al groupi ng of microc alcifi cation s. LEFT BREAST : No separa ble mass, ramses ectura l distor tion or abnorm al groupi ng of microc alcifi cation s. Biopsy clip is presen t in the upper outer breast . IMPRES ANA: No suspic ious findin gs. Routin e annual screen ing recomm ended. REPORT SUMMAR Y: BR- 2 - Benign Findin g FU- 1Y - Normal screen ing interv al D- C - Breast are hetero geneou sly dense, may obscur e small lesion s. Patien t was entere d into a remind er system for annual screen ing mammog lucila Admitt ing: Mily Gill ting: Tomer mustafa Name: JAMMIE GALEANO [phone] Locati on: [facility] [address] [address]- Radiol ogy Report notifi cation . ____ Final* Dictat ed: 3:13 pm Dictat ed By: Livia Del Rosario MD onic Signat ure: 3:17 pm Signed By: Marc soni MD, Livia Odell Admitt ing: Mily Gill ting: [facility] (Radiology) [address] [place] [address], [id number], 11/03/2022 08:38:55 10/20/19 23 10/19/2022 MAMMO , scree akira, tomos ynthe sis, bilshahzad rubio No observ ation record ed. [facility] (Radiology) [address] [place] [address], [address], 10/19/2022 18:06:39 04/27/19 24 04/26/2023 MRI, yudi mustafa bilshahzad rubio, w/wo contr ast Tomer mustafa Name: [facility]AMMI[facility]ANO [id number] Locati on: [facility] - [facility] [address] [place] [address]- Radiol ogy ACCESS ION EXAM DATE/T TYRELL PROCED URE ORDERI NG STATUS PROVID ER 813-MR -24-00 02 024 MRI Breast w/ JAYANT DOMINGUEZ, Auth 06 17:00 EST + w/o Contra st MILY A (Verif ied) Bilate ral Reason For Exam (MRI Breast w/ + w/o Contra st Bilate ral) MRI SCAN ABNORM AL Report Bilate ral breast MRI with and withou t contra st. DynaCA D system utiliz ed. SIGNA Artist 1.5 T utiliz ed. INDICA TION: ... Status post MRI dated 023. Recomm ended six-mo nth follow -up to enhanc ing foci in the left breast . Histor y of breast cancer in tomer mustafa's sister at age 47. Person al histor y of benign biopsy on the right. Person al histor y of biopsy -prove n fibroa denoma on the left locate d in the axilla ry tail. MENSTR UAL HISTOR Y: ... Postme nopaus al COMPAR KEVIN: ... MRI dated 023, 05/14/19 and 2020. Mammog lucila dated 10/15/19 22 and 023 TECHNI QUE: Initia l T1 nonfat satura caprice images are obtain ed follow ed by T2 imagin g with fat suppre ssion. Pre-T1 imagin g with fat suppre ssion follow ed by intrav enous inject ion of 11.3.. . ml Dotare m. T1 post gadoli nium x 3. Delaye d T1 images with fat suppre ssion. The examin ation is perfor med with the aid of DynaCA D softwa re-inc minging kineti c curves and histog lucila analys is. 3-D MIP multip lanar sequen batool are subseq uently obtain ed. Delaye d bilate ral T2 sagitt al imagin g is also obtain ed. BREAST COMPOS ITION: Hetero geneou sly dense. .. PARENC HYMAL ENHANC EMENT: There is mild backgr ound parenc hymal enhanc ement. FINDIN GS: ... RIGHT BREAST : ... Suscep tibili ty artifa cts are noted on the right, one supervisor green end department ior to the nipple and second in the slight ly inferi or latera l Admitt ing: JAYANT DOMINGUEZ, MILY Melton Consul ting: Tomer mustafa Name: JAMMIE GALEANO [phone] Locati on: [facility] - [facility] [address] [place] [address]- Radiol ogy Report aspect of the breast . There are a few scatte red T2 bright foci on the right consis tent with small cysts. Dynami c sequen batool demons trate no abnorm ally enhanc ing mass or nonmas s enhanc ement. LEFT BREAST : Study is obtain ed as a follow -up of small enhanc ing areas seen in the centra l supervisor green end department ior breast adjace nt to the chest wall on series 501 image 83 the second small focus is in the centra l latera l breast seen on image 501 image 99. Findin gs are stable . No newly enhanc ing lesion s are eviden t.... Suscep tibili ty artifa ct is noted in the axilla ry tail of the left breast . Tomer t is status post benign biopsy for fibroa denoma . Multip le scatte red T2 bright masses are eviden t consis tent with cysts. KINETI CS: ... Small foci of enhanc ement on the left demons trates mixed type I/type II kineti cs but no signif icant washou t. OTHER: No abnorm al lympha denopa thy. No nipple retrac tion or skin thicke akira. Visual ized portio ns of the chest and abdome n demons trates no focal abnorm alitie s. IMPRES ANA: ... Stable benign -appea ring foci of enhanc ement on the left. No suspic ious areas of mass or nonmas s enhanc ement. Report Summar y BR- 2 - Benign FU- 1Y - Normal screen ing interv al D- C - Breast are hetero geneou sly dense, may obscur e small lesion s. READIN G SITE: [facility] ____ Donavan paz Report Dictat ed: 2023 8:51 am Dictat ed By: LIVIA TYLER MD Signat ure: 2023 9:25 am Signed By: LIVIA TYLER MD ing: JAYANT DOMINGUEZ, MILY Youngblood ting: [address] [facility] (Radiology) [address] [place] [address], [address], 04/27/2023 09:46:42 04/27/19 24 04/26/2023 MRI, breas t, w/wo contr ast, bilat eral, w/ CAD No observ ation record ed. [address] Medical Records [address] [place] [address], [address], 04/27/2023 13:06:48 04/26/19 25 MRI, breas t, w/wo contr ast, bilat eral, w/ CAD No observ ation record ed. [address] ([facility]) [address] [place] [address], [id number], 04/26/2024 08:25:59 Result Notes Documentation Provider Name and Address Organization Details Recorded Time Mammo, Screening, Tomosynthesis, Bilateral : [facility] Department of Radiology [address] [place] [address], [id number] Name: JAMMIE JOHNSON : 70 Date of Service: 10/14/21 0850 Acct Number: [id number] Order Number: [id number] Location: [facility] Report Number: [id number] Service: REG REF/ Requesting Physician: Mily Gill MD Category: MAMMOGRAPHY Exam: DIGITAL BREAST LINO SCREENING Signs/Symptoms: SCREENING Report Status: Signed STUDY: Bilateral screening mammogram with CAD and tomosynthesis. TECHNIQUE: Bilateral craniocaudal and mediolateral oblique views obtained. R2 Cenova Version 1.3 computer aided detection system utilized.R2 Cenova Version 1.3 computer aided detection system utilized with Tomosynthesis. COMPARISON: No prior mammograms are available for comparison at completion of 10 day waiting period. FAMILY HISTORY OF BREAST CANCER: Sister diagnosed at age 47. PERSONAL HISTORY: Right breast biopsies, benign. BREAST COMPOSITION: The breasts are heterogeneously dense, which may obscure small masses. RIGHT BREAST: Tomosynthesis images were reviewed. No suspicious mass, abnormal calcification or architectural distortion is identified. Two surgical clips are again seen in the upper outer breast. Intramammary lymph nodes are seen in the upper outer quadrant. LEFT BREAST: Tomosynthesis images were reviewed. No suspicious mass, abnormal calcification or architectural distortion is identified. IMPRESSION: Bilateral breasts: Stable mammogram, no mammographic evidence of malignancy. Recommend patient return in one year for routine screening mammography. BR- 2 - Benign Finding FU- 1Y - Normal screening interval D- C - Breast are heterogeneously dense, may obscure small masses Patient was entered into [facility] for annual screening mammogram. Attending review by Livia Phillips M.D., at approximately 10/24/2021 3:04 PM: I have reviewed the case and agree with the reported findings. Date/Time of Dictation: 10/24/21 1507 Micro Computer Data Processor (if applicable): Jose E Hernandez MD Approved By Attending Radiologist: Livia Phillips MD 10/24/21 8619 Ordering physician: Mily Gill Other providers: Mily Gill, Mily Gill, , Jabier Avendano, , , Mily Gill MD [address] [place] [address], [phone], [facility] 10/27/2021 09:35:00 Mri, Breast, Bilateral, W/wo Contrast : [facility] Department of Radiology [address] [place] [address], [address] Name: JAMMIE JOHNSON : 70 Date of Service: 04/27/[address] [place], [place] [address] Number: [id number] Order Number: [id number] Location: [facility] Report Number: [id number] Service: REG REF/ Requesting Physician: Mily Gill MD Category: MAGNETIC RESONANCE IMAGING Exam: MRI BREAST WO W CM+CAD BI Signs/Symptoms: AT HIGH RISK FOR BREAST CA Report Status: Signed Bilateral breast MRI with and without contrast. Lenddo system utilized. SIGNA Artist 1.5 T utilized. INDICATION: Active surveillance protocol. High-risk for breast cancer. PATIENT-PROVIDED HISTORY: History of breast cancer in patient's mother at age 47 MENSTRUAL HISTORY: First menses at age 13. Last menstrual period at age 48. COMPARISON: Mammogram 02/02/2022, left breast ultrasound 10/14/2021 TECHNIQUE: Initial T1 nonfat saturated images are obtained followed by T2 imaging with fat suppression. Pre-T1 imaging with fat suppression followed by intravenous injection of 11.3 mL ProHance. T1 post gadolinium x 3 with subtraction imaging for each sequence over 5 minutes. Delayed T1 images with fat suppression. The examination is performed with the aid of Lenddo software-including kinetic curves and histogram analysis. 3-D MIP multiplanar sequences are subsequently obtained. Delayed bilateral T2 sagittal imaging and diffusion-weighted imaging is also obtained. BREAST COMPOSITION: Dense fibroglandular tissue. PARENCHYMAL ENHANCEMENT: Moderate background parenchymal enhancement. FINDINGS: RIGHT BREAST: No architectural distortion, no mass or nonmass enhancement. Scattered small T2 hyperintense and enhancing foci, corresponding to normal lymph nodes. Note is made of two separate locations of susceptibility artifact due to presence of biopsy clips in the retroglandular region approximately 1.2 cm posterior to the nipple and in the upper outer breast, approximately 5 cm from the nipple, corresponding to findings on mammogram. LEFT BREAST: 2 small enhancing areas are noted in the left breast seen on series 501 image 115 in the posterior breast and series 501 image 108 in the mid lateral breast. Kinetics demonstrate a mixture of type I and type II kinetics. There is a tiny area of washout in the posterior focus. Six-month follow-up MRI is suggested for further evaluation. Findings may represent small fibroadenomas. Patient is status post ultrasound-guided biopsy of the left breast in 02/02/2022 with pathology describing fibroadenoma. At the left retroglandular deep breast, upper outer region, towards the axilla, there is susceptibility artifact related to biopsy clip from fibroadenoma.. KINETICS: Mixed kinetics are noted in the 2 areas of enhancement in the left breast. OTHER: Partially visible intrathoracic and overlying soft tissue structures are unremarkable. IMPRESSION: No evidence of malignancy. BI-RADS: 2 enhancing foci in the left breast possibly related to fibroadenomas. Six-month follow-up MRI is recommended to document continuing stability. BI-RADS CATEGORY 3: Probably benign Report Summary BR- 3 - Probably Benign FU- 6M - Follow up at short term interval - 6 months Attending review by Dr. Livia Phillips M.D. I have personally reviewed the study and agree with the reported findings. Date/Time of Dictation: 04/27/22 1125 Micro Computer Data Processor (if applicable): Luke Andrade MD Approved By Attending Radiologist: Livia Phillips MD 04/27/22 1549 Ordering physician: Mily Gill Other providers: Mily Ordoñez, , Jabier Avendano, , , Mily Gill MD [address] [place] [address], [phone], [facility] 04/29/2022 16:36:31 Mammo, Screening, Tomosynthesis, Bilateral : Patient Name: JAMMIE JOHNSON Location: [place] [address]- Radiology ACCESSION EXAM DATE/TIME PROCEDURE ORDERING STATUS PROVIDER [id number] 10/19/2022 Mily Delgado Auth 41 13:20 EDT Mammo (Verified) Screening Reason For Exam ([place] Digital Mammo Screening) [id number] Report STUDY: Bilateral screening mammogram with CAD and tomosynthesis. TECHNIQUE: Bilateral craniocaudal and mediolateral oblique views obtained. Mobile Security Software Version 1.3 computer aided detection system and tomosynthesis utilized. COMPARISON: 10/14/2021, 02/02/2022 FAMILY HISTORY: History of breast cancer in patient's sister at age 47. Personal history of benign biopsy on the right. BREAST COMPOSITION: Heterogeneously dense which could obscure small masses. RIGHT BREAST: No separable mass is evident. There is no architectural distortion. 2 biopsy clips are present posterior and lateral to the right nipple. No abnormal grouping of microcalcifications. LEFT BREAST: No separable mass, architectural distortion or abnormal grouping of microcalcifications. Biopsy clip is present in the upper outer breast. IMPRESSION: No suspicious findings. Routine annual screening recommended. REPORT SUMMARY: BR- 2 - Benign Finding FU- 1Y - Normal screening interval D- C - Breast are heterogeneously dense, may obscure small lesions. Patient was entered into a reminder system for annual screening mammogram Admitting: Mily Gill Consulting: Patient Name: JAMMIE JOHNSON Location: [place] [address]- Radiology Report notification. Final Dictated: 10/19/22 3:13 pm Dictated By: Livia Latham MD Electronic Signature:10/19/22 3:17 pm Signed By: Livia Latham MD Admitting: Mily Gill Consulting: Leesa adams MA - [facility] 11/03/2022 08:38:55 Mri, Breast, Bilateral, W/wo Contrast : Patient Name: JAMMIE JOHNSON Location: [place] [address]- Radiology ACCESSION EXAM DATE/TIME PROCEDURE ORDERING STATUS PROVIDER [id number] 04/26/2023 MRI Breast w/ JAYANT DOMINGUEZ, Auth 06 17:00 EST + w/o Contrast MILY Melton (Verified) Bilateral Reason For Exam (MRI Breast w/ + w/o Contrast Bilateral) MRI SCAN ABNORMAL Report Bilateral breast MRI with and without contrast. Lenddo system utilized. Farmeronist 1.5 T utilized. INDICATION: ... Status post MRI dated 04/27/2022. Recommended six-month follow-up to enhancing foci in the left breast. History of breast cancer in patient's sister at age 47. Personal history of benign biopsy on the right. Personal history of biopsy-proven fibroadenoma on the left located in the axillary tail. MENSTRUAL HISTORY: ... Postmenopausal COMPARISON: ... MRI dated 04/27/2022, 05/14/2021 and 03/27/2021. Mammogram dated 10/14/2021 and 10/19/2022 TECHNIQUE: Initial T1 nonfat saturated images are obtained followed by T2 imaging with fat suppression. Pre-T1 imaging with fat suppression followed by intravenous injection of 11.3... ml Dotarem. T1 post gadolinium x 3. Delayed T1 images with fat suppression. The examination is performed with the aid of Lenddo software-including kinetic curves and histogram analysis. 3-D MIP multiplanar sequences are subsequently obtained. Delayed bilateral T2 sagittal imaging is also obtained. BREAST COMPOSITION: Heterogeneously dense... PARENCHYMAL ENHANCEMENT: There is mild background parenchymal enhancement. FINDINGS: ... RIGHT BREAST: ... Susceptibility artifacts are noted on the right, one posterior to the nipple and second in the slightly inferior lateral Admitting: JAYANT DOMINGUEZ, MILY Melton Consulting: Patient Name: JAMMIE JOHNSON Location: [place] [address]- Radiology Report aspect of the breast. There are a few scattered T2 bright foci on the right consistent with small cysts. Dynamic sequences demonstrate no abnormally enhancing mass or nonmass enhancement. LEFT BREAST: Study is obtained as a follow-up of small enhancing areas seen in the central posterior breast adjacent to the chest wall on series 501 image 83 the second small focus is in the central lateral breast seen on image 501 image 99. Findings are stable. No newly enhancing lesions are evident.... Susceptibility artifact is noted in the axillary tail of the left breast. Patient is status post benign biopsy for fibroadenoma. Multiple scattered T2 bright masses are evident consistent with cysts. KINETICS: ... Small foci of enhancement on the left demonstrates mixed type I/type II kinetics but no significant washout. OTHER: No abnormal lymphadenopathy. No nipple retraction or skin thickening. Visualized portions of the chest and abdomen demonstrates no focal abnormalities. IMPRESSION: ... Stable benign-appearing foci of enhancement on the left. No suspicious areas of mass or nonmass enhancement. Report Summary BR- 2 - Benign FU- 1Y - Normal screening interval D- C - Breast are heterogeneously dense, may obscure small lesions. READING SITE: [facility] Final Report Dictated: 04/27/2023 8:51 am Dictated By: LIVIA PHILLIPS MD Electronic Signature: 04/27/2023 9:25 am Signed By: LIVIA PHILLIPS MD Admitting: JAYANT DOMINGUEZ, MILY Melton Consulting: Mily Gill MD [address] [place] [address], [phone], [facility] 04/27/2023 09:46:42 Problems No Known Problems Procedures Surgical History Date Name Laterality Status Provider Name and Address Organization Details Recorded Time 3 completed Leesa Lee [facility] 06/15/2022 10:02:19 Breast Surgery (Lumpectomy, Biopsy, Implants) completed Yasmin Spear [facility] 07/09/2021 13:03:32 Imaging Results None recorded. Procedure Notes None recorded. Medical Equipment None Reported. Allergies Allergen ID Allergen Name Allergen Category Reaction Reaction Severity Criticality Documentation Date Start Date Code Code System Note Provider Name and Address Organization Details Recorded Time 924708 Substance with sulfonami de structure and antibacte rial mechanism of action (substanc e) medicatio n other Not available Not available 07/09/2021 05139 8003 SNOMED Yasmin Spear [facility] 2 13:03:15 [id number] Product containin g penicilli n (product) medicatio n Not available Not available Not available 07/09/2021 90097 8001 SNOMED Yasmin Spear [facility] 2 13:03:15 [id number] honey bee venom medicatio n headache swelling Not available Not available [facility] 07/09/2021 23760 7 RxNorm Yasmin Spear [facility] 2 13:10:43 045411 amoxicill in medicatio n Not available Not available Not available 07/09/2021 723 RxNorm Yasmin adams [facility] 2 13:10:52 Medications Name Sig Start Date Stop Date Status Note LastModified by Organization Details LastModified Time prednisone 10 mg tablet PLEASE SEE ATTACHED FOR DETAILED DIRECTION S active Not Available Not Available No t Available doxycycline hyclate 100 mg capsule TAKE 1 CAPSULE BY MOUTH TWICE A DAY FOR 7 DAYS active Not Available Not Available No t Available clindamycin HCl 300 mg capsule TAKE 1 CAPSULE BY MOUTH EVERY 8 HOURS active Not Available Not Available No t Available citalopram 40 mg tablet TAKE 1 TABLET BY MOUTH EVERY DAY. MAX DAY SUPPLY OF 30/INSURA NCE 12/29 completed Not Available Not Available Not Available prednisone 20 mg tablet TAKE 2 TABLETS BY MOUTH EVERY DAY WITH FOOD 12/31 completed Not Available Not Available Not Available acetaminoph en 300 mg-codeine 30 mg tablet TAKE 1 TABLET BY MOUTH EVERY 6 HOURS NEEDED active Not Available Not Available No t Available alprazolam 0.5 mg tablet TAKE 1 TABLET BY MOUTH 2 TIMES A DAY NEEDED FOR ANXIETY. active Not Available Not Available No t Available citalopram 20 mg tablet TAKE 1 TABLET BY MOUTH EVERY DAY active Not Available Not Available No t Available famotidine 20 mg tablet TAKE 1 TABLET BY MOUTH EVERY DAY completed Not Available Not Available Not Available dexamethaso ne 1 mg tablet TAKE 1 TABLET WHEN DIRECTED ( BETWEEN 11 PM AND 12 MIDNIGHT) completed Not Available Not Available Not Available Advair Diskus 250 mcg-50 mcg/dose powder for inhalation INHALE 1 PUFF BY MOUTH TWICE A DAY active Not Available Not Available No t Available gabapentin 300 mg capsule TAKE 2 CAPSULE TWICE DAILY INCREASE FROM 1 AT NIGHT DIRECTED 12/29 completed Not Available Not Available Not Available ibuprofen 600 mg tablet TAKE 1 TABLET BY MOUTH EVERY 6 HOURS NEEDED WITH FOOD active Not Available Not Available No t Available albuterol sulfate HFA 90 mcg/actuati on aerosol inhaler INHALE 2 PUFFS EVERY 4 HOURSAS NEEDED FOR WHEEZING, COUGH OR SHORTNESS OF BREATH (DISCOUNT CHEAPER) active Not Available Not Available No t Available neomycin 3.5 mg/g-polymy josef B 10,000 unit/g-dexa meth 0.1 % eye oint PLEASE SEE ATTACHED FOR DETAILED DIRECTION S 12/29 completed Not Available Not Available Not Available duloxetine 30 mg capsule,del ayed release TAKE 1 CAPSULE BY MOUTH EVERY DAY active Not Available Not Available No t Available duloxetine 60 mg capsule,del ayed release TAKE 1 CAPSULE BY MOUTH EVERY DAY active Not Available Not Available No t Available duloxetine completed Not Available Not Available Not Available Gavilyte-C 240 gram-22.72 gram-6.72 gram-5.84 gram oral solution 12/29 completed Not Available Not Available Not Available albuterol sulf 90 mcg/actuati on breath activated powder inhaler,sen sor Inhale 2 puffs every 4 hours by inhalatio n route. active Not Available Not Available No t Available Vuity 1.25 % eye drops LOCATION: BOTH EYES. APPLY 1 DROP DAILY EACH EYE active Not Available Not Available No t Available Flowflex COVID-19 Antigen Home Test kit FOLLOW INSTRUCTI ONS INCLUDED WITH THE PACKAGE. 12/31 completed Not Available Not Available Not Available Vitals Date Recorded Body height Body mass index (BMI) Body weight Body temperature Heart rate Respiratory rate Oxygen saturation Oxygen saturation in Arterial blood by Pulse oximetry Systolic And Diastolic Provider Name and Address Organization Details Last Updated DateTime 4 152.4 cm 25.3 kg/m2 05104.5 7 g 98.3 [degF] 81 /min 14 /min 96 % 96 % 134/80 mm[Hg] AJITH CASTILLO [facility]. 4 10:33:55 Date Recorded Body height Body mass index (BMI) Body weight Body temperature Heart rate Oxygen saturation Oxygen saturation in Arterial blood by Pulse oximetry Pain severity - 0-10 verbal numeric rating [Score] - Reported Systolic And Diastolic Provider Name and Address Organization Details Last Updated DateTime 3 152.4 cm 25 kg/m2 27272.8 2 g 97.7 [degF] 75 /min 97 % 97 % 0 150/85 mm[Hg] Leesa Lee [facility]. 3 10:07:28 Date Recorded Pain severity - 0-10 verbal numeric rating [Score] - Reported Body temperature Body weight Body mass index (BMI) Body height Heart rate Respiratory rate Oxygen saturation Oxygen saturation in Arterial blood by Pulse oximetry Systolic And Diastolic Provider Name and Address Organization Details Last Updated DateTime 2 0 98.2 [degF] 59009.6 g 25.6 kg/m2 152.4 cm 74 /min 16 /min 99 % 99 % 122/74 mm[Hg] Yasmin Spear [facility] 2 13:22:26 Date Recorded Body height Pain severity - 0-10 verbal numeric rating [Score] - Reported Body temperature Body mass index (BMI) Body weight Oxygen saturation Oxygen saturation in Arterial blood by Pulse oximetry Respiratory rate Heart rate Systolic And Diastolic Provider Name and Address Organization Details Last Updated DateTime 2 152.4 cm 0 98.4 [degF] 25.6 kg/m2 17906.6 g 99 % 99 % 16 /min 74 /min 124/72 mm[Hg] Yasmin Spear [facility] 2 10:51:47 Social History Question Answer Notes LastModified by Organizat ion Details LastModified Time Tobacco Smoking Status Current Every [facility]2021 13:20:18 Do You Have An Advance Directive? Yes [email or web address] Information not available 07/09/2021 Are You Blind Or Do You Have Difficulty Seeing? No Information not available 07/09/2021 Is Blood Transfusion Acceptable In An Emergency? Yes Information not available 07/09/2021 What Is Your Level Of Caffeine Consumption? Moderate Information not available 07/09/2021 Are You Deaf Or Do You Have Serious Difficulty Hearing? No Information not available 07/09/2021 What Type Of Diet Are You Following? REGULAR Information not available 07/09/2021 Which Of Your Hands Is Dominant? Right Information not available 07/09/2021 If Pulse Oximetry Was Done: Is The Patient's Sp02 Less Than 93% On Room Air? No Information not available 07/09/2021 Urinary Incontinence Assessment Performed? No Information not available 06/14/2023 What Was The Date Of Your Most Recent Tobacco Screening? 06/14/2023 Information not available 06/14/2023 Have You Ever Been Counseled For Unhealthy Alcohol Use? No [email or web address] Information not available 06/15/2022 Do You Have Any Pets? No Information not available 12/31/2021 What Is Your Relationship Status? Single Information not available 06/14/2023 Has Tobacco Cessation Counseling Been Provided? Yes [email or web address] Information not available 06/15/2022 On What Date Was Tobacco Cessation Counseling Provided? 06/15/2022 [email or web address] Information not available 06/15/2022 Sex: Female Functional Status Question Answer Note LastModified by Organizat ion Details LastModified Time Do you use any illicit or recreational drugs? No Information not available 07/09/2021 Do you or have you ever used any other forms of tobacco or nicotine? Yes Information not available 07/09/2021 What is your level of alcohol consumption? Occasional Information not available 07/09/2021 Are you currently employed? Yes Information not available 07/09/2021 Are you able to care for yourself independently? Yes Information not available 07/09/2021 Do you or have you ever used e-cigarettes or vape? Never used electronic cigarettes Information not available 07/09/2021 What is your exercise level? Occasional Information not available 07/09/2021 Mental Status Question Answer Note LastModified by Organization D etails LastModified Time Do you feel stressed (tense, restless, nervous, or anxious, or unable to sleep at night)? [id number] Information not available 07/09/2021 Family History Relationship Description Onset Age of this Age Resolved Age Notes LastModified by Organization Details LastModified Time Maternal Grandmother Heart disease Not available 06/12 13:03:09 Father Family history of stroke Not available 06/12 13:03:09 Father Diabetes mellitus Not available 06/12 13:03:09 Father Hypertensive disorder Not available 06/12 13:03:09 Mother Diabetes mellitus Not available 06/12 13:03:09 Mother Heart disease Not available 06/12 13:03:09 Mother Depressive disorder Not available 06/12 13:03:09 Mother Hypertensive disorder [email or web address] Not available 06/12 13:03:09 Sister Malignant neoplasm of breast 47 52 triple negati ve breast [place] [email or web address] Not available 07/09/2021 13:19:32 Medical History Condition Response Gastrointestinal Disease (IBS, Gastritis , Ulcer, Acid Reflux) Y Diarrhea Y Anxiety Y Depression Y Asthma Y Gynecological History Statement/Question Response N N N Y 04/27/2022 N N Y Male Age at Menarche 13 Current Control Method Menopause Abnormal MMG N N Sexually Active? Y Number of Abortions 1 Number of Pregnancies? 3 Number of Live Births? 2 Obstetrics History GPAL:G 3 P 0 0 1 2 Type Value Induced 1 Living 2 Total 3 Past Encounters Encounter ID Performer Location Encounter Start Date Encounter Closed Date Diagnosis/Indication Diagnosis SNOMED-CT Code Diagnosis ICD10 Code Diagnosis IMO Codes Diagnosis Note [id number] Mily Gill MD [address] [address] 07/09/2021 12:48:08 07/09/2021 14:00:30 At high risk for malignant neoplasm of breast 5642124877 32043 Z91.89 MRI scan abnormal 178054 003 R93.89 Axillary lymphadenopathy 650141091 R59.0 Advance care planning 71 6181640 Z71.89 [id number] Mily Gill MD [address] [address] 12/31/2021 10:17:20 12/31/2021 12:19:44 Lump of axillary tail of left breast 1337568896 86719 N63.32 At high ri sk for malignant neoplasm of breast 4681401465 07330 Z91.89 [id number] Mily Gill MD [address] [address] 06/15/2022 09:49:11 06/15/2022 10:34:05 At high risk for malignant neoplasm of breast 5447592515 59838 Z91.89 Abnormal f indings on diagnostic imaging of breast 366760285 R92.8 [id number] Mily Gill MD [address] [place] [address] 06/14/2023 09:46:17 06/14/2023 11:03:42 At high risk for malignant neoplasm of breast 3947585188 15769 Z91.89 Extremely dense breast composition 923722381 R92.343 Health Concerns Section Related Observation LastModified by Organization Detai ls LastModified Time None Recorded Concern Status LastModified by Organization Details LastModified Time None Recorded Advance Directives Directive Y: Payers Insurance Date Sequence Insurance Name Policy Number Policy Shirley Covered Member ID Shirley Member ID Guarantor Name 05/05/2024 1 [facility] CLARITY (HMO) [id number] Jammie Odell Alex [id number] Jammie Johnson 05/05/2024 1 [facility] - [facility] CLARITY (HMO) [id number] Jammie Alex [id number] Jammie Islasnier 05/05/2024 1 [facility] Jammie Alex [id number] Jammieyoel Johnson 05/05/2024 1 [place] [facility] Jammie Alex [id number] Jammieyoel Johnson 05/05/2024 1 [facility] PLAN (MEDICAID HMO) [id number] Jammie Odell Alex [id number] Jammie Johnson 05/05/2024 2 [facility] - [facility] CLARITY (HMO) [id number] Jammie Odell Alex [id number] Jammie Alex 05/05/2024 1 [facility] - TOGETHER (MEDICAID HMO) [id number] Jammie Odell Alex [id number] Jammie Johnson Notes Date Note Type Note Provider Name and Address Organization Details Recorded Time 2021 text/h tml ROS as noted in the HPI CC: transfer of care for High Risk Screening CARE TEAM:Primary Care Provider: Yanni Plascencia MD C: patient does have advanced directive. FULL code. HPI: Asked to see this 50 yo female patient for transfer of care from [facility]. Patient has extreme breast density and a sister with TNBC at age 47 DOD at 52. Sister did have genetic testing and did not have any pathogenic mutations per patient report. Patient used [facility] for genetic testing and was informed that she had no genetic mutation. IMAGING:- 03/27/2021 BREAST MRI (OUTSIDE FACILITY)Breast Density: Extremely denseBreast Findings: A few scattered cysts are seen within the RIGHT breast. There is a focus of susceptibility artifact at 9:00 corresponding to te previously biopsied fibroadenoma.There is a 8 x 5 x 5 mm oval mass at the lateral subareolar region. This demonstrates circumscribed margins and type III (washout) enhancement kinetics. On the axial images it appears homogeneously enhancing. On the delayed sagittal images, itappears rim-enhancing orcentrally hypoenhancing.No morphologically suspicious mass or suspicious areas of contrast enhancement are seen within the LEFT breast.AXILLAE: There is no axillary lymphadenopathyNONBREAST FINDINGS: No suspicious abnormalities are een within the visualized chest wall, anterior chest, or anterior upper abdomen.IMPRESSION: INCOMPLETE: NEED ADDITIONAL IMAGING EVALUATION. - 04/21/2021 RIGHT BREAST US ([facility])Retroareolar region of the RIGHT breast the tissue is sonographically heterogeneous. Multiple small cysts and mildly prominent ducts are identified. There is no solid or intraductal mass seen to correlate with the MRI finding the lateral retroareolar region.The previously biopsied benign fibroadenoma was again identified at 9:00 6 cm from the nipple.IMPRESSION: BENIGNNo sonographic abnormality seen to correlate with the enhancing mass seen on MRI in the lateral subareolar right breast. An MRI guided biopsy is recommended. PATHOLOGY:- 05/14/2021 DIAGNOSISBreast, right, retroareolar,MRI-guided needle core biopsy: Breast parenchyma with nodular sclerosing adenosis and fibrosis; negative for malignancy. - 06/04/2021 (second opinion reading)BREAST, RIGHT, RETROAREOLAR, MRI-GUIDED NEEDLE CORE BIOPSY:BENIGN BREAST TISSUE WITH CHANGES SUGGESTING NODULAR SCLEROSING ADENOSIS AND ASSOCIATED MICROCALCIFICATIONS.FIBROCYSTIC CHANGES WITH ASSOCIATED CALCIUM OXALATE. GENETICS/OTHER TESTING:Genetics testing: no formal testing but did use [employer] and reports she was negative. HARVEY MODEL RISK ASSESSMENT:BRISK ANALYSIS (bcrisktool.cancer.gov):Personal history of cancer/DCIS/LCIS: NOAshkenazi Mormonism background NONumber of first degree relatives with breast cancer - 1Prior radiation to the chest: NOKnown genetic mutations or syndromes: NOAge: 50 yearsPrior benign breast biopsies - 2 benign no atypiaAge at first menstrual period - 13Age at of first child - 18 5-YEAR RIISK: Patient = 2.7%, Average = 1.3%LIFETME RISK: Patient = 23%,Average = 11.2% Based on this assessment for women with similar risk characteristics, her estimated risk is approximately high risk meeting the high risk designation threshold. 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 Took OCPS for 30 years, IVF NO PSH:foot surgeryshoulder arthroscopyuterine ablation MEDS:albuterol sulfatecitalopramduloxetinefluticasone propion-salmeterol OCP's:NONE ALL:amoxicillinbee venom protein (honey bee)PenicillinsSulfa (Sulfonamide Antibiotics) FHX:Breast cancer: sister TNBC DX at 47, DOD at 52. Sister did have genetic testing and did not have any pathogenic mutations per patient report. SHX:SINGLEChildren: yes 2Occupation:Tobacco: yes Amount: 1 ppd How lon yearsAlcohol: yes Amount: 2 drinks Frequency: weekDrug use: noVaping: noGender Identity: femaleSexual orientation: heterosexual ROS:aches and pains. Gets trigger point injections. Mily Gill MD [address] [place] [address], [phone] , [facility] 18:32:44 2021 text/h tml ROS as noted in the HPI CC: transfer of care for High Risk Screening CARE TEAM:Primary Care Provider: Yanni Plascencia MD GOC: patient does have advanced directive. FULL code. HPI: Originally asked to see this 50 yo female patient for transfer of care from [facility]. Patient has extreme breast density and a sister with TNBC at age 47 DOD at 52. Sister did have genetic testing and did not have any pathogenic mutations per patient report. Patient used [employer] me for genetic testing and was informed that she had no genetic mutation. She was found to have an asymmetrically dense tail of Solis but no palpable breast parenchymal abnormalities. US was ordered along with 6 month CBE. She comes in today for CBE. IMAGING:- 03/27/2021 BREAST MRI (OUTSIDE FACILITY)Breast Density: Extremely denseBreast Findings: A few scattered cysts are seen within the RIGHT breast. There is a focus of susceptibility artifact at 9:00 corresponding to te previously biopsied fibroadenoma.There is a 8 x 5 x 5 mm oval mass at the lateral subareolar region. This demonstrates circumscribed margins and type III (washout) enhancement kinetics. On the axial images it appears homogeneously enhancing. On the delayed sagittal images, itappears rim-enhancing orcentrally hypoenhancing.No morphologically suspicious mass or suspicious areas of contrast enhancement are seen within the LEFT breast.AXILLAE: There is no axillary lymphadenopathyNONBREAST FINDINGS: No suspicious abnormalities are seen within the visualized chest wall, anterior chest, or anterior upper abdomen.IMPRESSION: INCOMPLETE: NEED ADDITIONAL IMAGING EVALUATION. - 04/21/2021 RIGHT BREAST US ([facility])Retroareolar region of the RIGHT breast the tissue is sonographically heterogeneous. Multiple small cysts and mildly prominent ducts are identified. There is no solid or intraductal mass seen to correlate with the MRI finding the lateral retroareolar region.The previously biopsied benign fibroadenoma was again identified at 9:00 6 cm from the nipple.IMPRESSION: BENIGNNo sonographic abnormality seen to correlate with the enhancing mass seen on MRI in the lateral subareolar right breast. An MRI guided biopsy is recommended. PATHOLOGY:- 05/14/2021 DIAGNOSISBreast, right, retroareolar,MRI-guided needle core biopsy: Breast parenchyma with nodular sclerosing adenosis and fibrosis; negative for malignancy. - 06/04/2021 (second opinion reading)BREAST, RIGHT, RETROAREOLAR, MRI-GUIDED NEEDLE CORE BIOPSY:BENIGN BREAST TISSUE WITH CHANGES SUGGESTING NODULAR SCLEROSING ADENOSIS AND ASSOCIATED MICROCALCIFICATIONS.FIBROCYSTIC CHANGES WITH ASSOCIATED CALCIUM OXALATE. - 10/14/2021 LEFT AXILLARY USULTRASOUND FINDINGS:Targeted left breast ultrasound was performed in the palpable area ofconcern at the 1:00 position, 9-10 cm from the nipple. There is a 1.0 x0.5 x 1.3 cm hypoechoic, parallel, oval mass with microlobulated margins.No internal vascularity seen.IMPRESSION:Left breast:1.3 cm mass in the area of palpable concern, probably benigngiven morphology.Probably benign. As long as the patient's physicalexamination remains normal, left breast ultrasound is recommended in 6months. Results and recommendation were discussed with the patient.REPORT SUMMARY:BR- 3 - Probably BenignFU- 6M - Follow up at short term interval - 6 months - 10/24/2021 BILATERAL MAMMOGRAMBREAST COMPOSITION:The breasts are heterogeneously dense, which may obscure small masses.RIGHT BREAST:Tomosynthesis images were reviewed. No suspicious mass, abnormalcalcification or architectural distortion is identified. Two surgicalclips are again seen in the upper outer breast. Intramammary lymph nodesare seen in the upper outer quadrant.LEFT BREAST:Tomosynthesis images were reviewed. No suspicious mass, abnormalcalcification or architectural distortion is identified.IMPRESSION:Bilateral breasts: Stable mammogram, no mammographic evidence ofmalignancy. Recommend patient return in one year for routine screeningmammography.BR- 2 - Benign FindingFU- 1Y - Normal screening intervalD- C - Breast are heterogeneously dense, may obscure small massesGENETICS/OTHER TESTING:Genetics testing: no formal testing but did use [employer] and reports she was negative. HARVEY MODEL RISK ASSESSMENT:BRISK ANALYSIS (bcrisktool.cancer.gov):Personal history of cancer/DCIS/LCIS: NOAshkenazi Mormonism background NONumber of first degree relatives with breast cancer - 1Prior radiation to the chest: NOKnown genetic mutations or syndromes: NOAge: 50 yearsPrior benign breast biopsies - 2 benign no atypiaAge at first menstrual period - 13Age at of first child - 18 5-YEAR RIISK: Patient = 2.7%, Average = 1.3%LIFETME RISK: Patient = 23%,Average = 11.2% Based on this assessment for women with similar risk characteristics, her estimated risk is approximately high risk meeting the high risk designation threshold. 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 Took OCPS for 30 years, IVF NO PSH:foot surgeryshoulder arthroscopyuterine ablation MEDS:albuterol sulfatecitalopramduloxetinefluticasone propion-salmeterol OCP's:NONE ALL:amoxicillinbee venom protein (honey bee)PenicillinsSulfa (Sulfonamide Antibiotics) FHX:Breast cancer: sister TNBC DX at 47, DOD at 52. Sister did have genetic testing and did not have any pathogenic mutations per patient report. SHX:SINGLEChildren: yes 2Occupation:Tobacco: yes Amount: 1 ppd How lon yearsAlcohol: yes Amount: 2 drinks Frequency: weekDrug use: noVaping: noGender Identity: femaleSexual orientation: heterosexual ROS:aches and pains. Gets trigger point injections. Mily Gill MD [address] [place] [address], [phone] , [facility]. 2 10:04:44 2022 text/h tml ROS as noted in the HPI CC: High Risk Screening CARE TEAM:Primary Care Provider: Yanni Plascencia MD GOC: patient does have advanced directive. FULL code. HPI: Originally asked to see this 50 yo female patient for transfer of care from [facility]. Patient has extreme breast density and a sister with TNBC at age 47 DOD at 52. Sister did have genetic testing and did not have any pathogenic mutations per patient report. Patient used [employer] for genetic testing and was informed that she had no genetic mutation. She was found to have an asymmetrically dense tail of Solis but no palpable breast parenchymal abnormalities. Since her last visit, she had an US biopsy of a nodule in the LEFT breast which revealed a fibroadenoma. MRI done recently shows 2 enhancing foci in the LEFT breast. MRI 6- month follow up to assure stability was already ordered for October 2022. IMAGING:- 10/24/2021 BILATERAL BREAST MAMMOGRAM:BREAST COMPOSITION:The breasts are heterogeneously dense, which may obscure small masses.RIGHT BREAST:Tomosynthesis images were reviewed. No suspicious mass, abnormalcalcification or architectural distortion is identified. Two surgicalclips are again seen in the upper outer breast. Intramammary lymph nodesare seen in the upper outer quadrant.LEFT BREAST:Tomosynthesis images were reviewed. No suspicious mass, abnormalcalcification or architectural distortion is identified.IMPRESSION:Bilateral breasts: Stable mammogram, no mammographic evidence ofmalignancy. Recommend patient return in one year for routine screeningmammography.BR- 2 - Benign FindingFU- 1Y - Normal screening intervalD- C - Breast are heterogeneously dense, may obscure small masses - 02/02/2022 LEFT US GUIDED [id number] biopsy device, 3 core biopsy specimens were obtained which subsequently weresent to pathology. A onel shaped clip was placed at the biopsy site.Subsequent mammogram demonstrated the position of the clip at 1:00, 9 to10 cm from the nipple.IMPRESSION:1. Technically successful ultrasound-guided biopsy of left breast lesion and clip placement.AddendumPathology reports are now available from ultrasound guided biopsy of leftbreast mass performed on 02/02.Pathology describes fibroadenoma.Findings are benign and concordant. - 04/27/2022 BILATERAL BREAST MRIFINDINGS:RIGHT BREAST: No architectural distortion, no mass or nonmassenhancement. Scattered small T2 hyperintense and enhancing foci,corresponding to normal lymph nodes.Note is made of two separate locations of susceptibility artifact due topresence of biopsy clips in the retroglandular region approximately 1.2cm posterior to the nipple and in the upper outer breast, approximately 5cm from the nipple, corresponding to findings on mammogram.LEFT BREAST: 2 small enhancing areas are noted in the left breast seen onseries 501 image 115 in the posterior breast and series 501 image 108 inthe mid lateral breast. Kinetics demonstrate a mixture of type I and typeII kinetics. There is a tiny area of washout in the posterior focus.Six-month follow-up MRI is suggested for further evaluation. Findings mayrepresent small fibroadenomas. Patient is status post ultrasound-guidedbiopsy of the left breast in 02/02/2022 with pathology describingfibroadenoma.At the left retroglandular deep breast, upper outer region, towards theaxilla, there is susceptibility artifact related to biopsy clip fromfibroadenoma..KINETICS:Mixed kinetics are noted in the 2 areas of enhancement in the leftbreast.OTHER: Partially visible intrathoracic and overlying soft tissuestructures are unremarkable.IMPRESSION:No evidence of malignancy.BI-RADS:2 enhancing foci in the left breast possibly related to fibroadenomas.Six-month follow-up MRI is recommendedto document continuing stability.BI-RADS CATEGORY 3: Probably benignReport SummaryBR- 3 - Probably BenignFU- 6M - Follow up at short term interval - 6 monthsPATHOLOGY:- 05/14/2021 DIAGNOSISBreast, right, retroareolar,MRI-guided needle core biopsy: Breast parenchyma with nodular sclerosing adenosis and fibrosis; negative for malignancy. - 06/04/2021 (second opinion reading)BREAST, RIGHT, RETROAREOLAR, MRI-GUIDED NEEDLE CORE BIOPSY:BENIGN BREAST TISSUE WITH CHANGES SUGGESTING NODULAR SCLEROSING ADENOSIS AND ASSOCIATED MICROCALCIFICATIONS.FIBROCYSTIC CHANGES WITH ASSOCIATED CALCIUM OXALATE. - 02/02/2022 Diagnosis:BREAST, LEFT ULTRASOUND GUIDED BIOPSYFIBROADENOMA.GENETICS/OTHER TESTING:Genetics testing: no formal testing but did use [employer] and reports she was negative. HARVEY MODEL RISK ASSESSMENT:BRISK ANALYSIS (bcrisktool.cancer.gov):Personal history of cancer/DCIS/LCIS: NOAshkenazi Mormonism background NONumber of first degree relatives with breast cancer - 1Prior radiation to the chest: NOKnown genetic mutations or syndromes: NOAge: 50 yearsPrior benign breast biopsies - 2 benign no atypiaAge at first menstrual period - 13Age at of first child - 18 5-YEAR RIISK: Patient = 2.7%, Average = 1.3%LIFETME RISK: Patient = 23%,Average = 11.2% Based on this assessment for women with similar risk characteristics, her estimated risk is approximately high risk meeting the high risk designation threshold. 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 Took OCPS for 30 years, IVF NO PSH:foot surgeryshoulder arthroscopyuterine ablation MEDS:albuterol sulfatecitalopramduloxetinefluticasone propion-salmeterolVentolin HFA OCP's:NONE ALL:amoxicillinbee venom protein (honey bee)PenicillinsSulfa (Sulfonamide Antibiotics) FHX:Breast cancer: sister TNBC DX at 47, DOD at 52. Sister did have genetic testing and did not have any pathogenic mutations per patient report. 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 Gets trigger point injections. Mily Gill MD [address] [place] [address], [phone] , [facility]. 3 15:23:50 2023 text/h tml ROS as noted in the HPI CC: High Risk Screening CARE TEAM:Primary Care Provider: Yanni Plascencia MD GOC: patient does have advanced directive. FULL code. HPI: Originally asked to see this 52 yo female patient for transfer of care from [facility]. Patient has extreme breast density and a sister with TNBC at age 47 DOD at 52. Sister did have genetic testing and did not have any pathogenic mutations per patient report. Patient used [email or web address] and me for genetic testing and was informed that she had no genetic mutation. She was found to have an asymmetrically dense tail of Solis but no palpable breast parenchymal abnormalities. Since her last visit, she had an US biopsy of a nodule in the LEFT breast which revealed a fibroadenoma. MRI done recently shows 2 enhancing foci in the LEFT breast. MRI has been stable. She comes in today for routine high risk follow-up. IMAGING:- 10/19/2022 BILATERAL MAMMOGRAM:BREAST COMPOSITION: Heterogeneously dense which could obscure smallmasses.RIGHT BREAST: No separable mass is evident. There is no architecturaldistortion. 2 biopsy clips are present posterior and lateral to the rightnipple. No abnormal grouping of microcalcifications.LEFT BREAST: No separable mass, architectural distortion or abnormalgrouping of microcalcifications. Biopsy clip is present in the upperouter breast.IMPRESSION: No suspicious findings.Routine annual screening recommended.REPORT SUMMARY:BR- 2 -Benign FindingFU- 1Y - Normal screening intervalD- C - Breast are heterogeneously dense, may obscure small lesions. - 04/26/2023 BILATERAL BREAST MRI:FINDINGS:RIGHT BREAST: ... Susceptibility artifacts are noted on the right, oneposterior to the nipple and second in the slightly inferior lateralaspect of the breast. There are a few scattered T2 bright foci on theright consistent with small cysts.Dynamic sequences demonstrate no abnormally enhancing mass or nonmassenhancement.LEFT BREAST: Study is obtained as a follow-up of small enhancing areasseen in the central posterior breast adjacent to the chest wall on image 83 the second small focus is in the central lateral breast seenon image 501 image 99. Findings are stable. No newly enhancing lesionsare evident....Susceptibility artifact is noted in the axillary tail of the left breast.Patient is status post benign biopsy for fibroadenoma.Multiple scattered T2 bright masses are evident consistent with cysts.KINETICS: ... Small foci of enhancement on the left demonstrates mixedtype I/type II kinetics but no significant washout.OTHER: No abnormal lymphadenopathy. No nipple retraction or skinthickening. Visualized portions of the chest and abdomen demonstrates nofocal abnormalities.IMPRESSION: ... Stable benign-appearing foci of enhancement on the left.No suspicious areas of mass or nonmass enhancement.Report SummaryBR- 2 -BenignFU- 1Y - Normal screening intervalD- C - Breast are heterogeneously dense, may obscure small lesions.PATHOLOGY:- 05/14/2021 DIAGNOSISBreast, right, retroareolar,MRI-guided needle core biopsy: Breast parenchyma with nodular sclerosing adenosis and fibrosis; negative for malignancy. - 06/04/2021 (second opinion reading)BREAST, RIGHT, RETROAREOLAR, MRI-GUIDED NEEDLE CORE BIOPSY:BENIGN BREAST TISSUE WITH CHANGES SUGGESTING NODULAR SCLEROSING ADENOSIS AND ASSOCIATED MICROCALCIFICATIONS.FIBROCYSTIC CHANGES WITH ASSOCIATED CALCIUM OXALATE. - 02/02/2022 Diagnosis:BREAST, LEFT ULTRASOUND GUIDED BIOPSYFIBROADENOMA.GENETICS/OTHER TESTING:Genetics testing: no formal testing but did use [employer] and reports she was negative. HARVEY MODEL RISK ASSESSMENT:BRISK ANALYSIS (bcrisktool.cancer.gov):Personal history of cancer/DCIS/LCIS: NOAshkenazi Mormonism background NONumber of first degree relatives with breast cancer - 1Prior radiation to the chest: NOKnown genetic mutations or syndromes: NOAge: 50 yearsPrior benign breast biopsies - 2 benign no atypiaAge at first menstrual period - 13Age at of first child - 18 5-YEAR RIISK: Patient = 2.7%, Average = 1.3%LIFETME RISK: Patient = 23%,Average = 11.2% Based on this assessment for women with similar risk characteristics, her estimated risk is approximately high risk meeting the high risk designation threshold. 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 Took OCPS for 30 years, IVF NO PSH:foot surgeryshoulder arthroscopyuterine ablationcholecystectomy - planned for this wednesdayMEDS:albuterol sulfatecitalopramduloxetinefluticasone propion-salmeterolVentolin HFA OCP's:NONE ALL:amoxicillinbee venom protein (honey bee)PenicillinsSulfa (Sulfonamide Antibiotics) FHX:Breast cancer: sister TNBC DX at 47, DOD at 52. Sister did have genetic testing and did not have any pathogenic mutations per patient report. 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 Gets trigger point injections. Mily Gill MD [address] [place] [address], [phone] , [facility]. 4 22:27:31 OBGyn Episode No OBEpisode recorded.
--- OUTSIDE RECORDS SUMMARY | 2025-03-01 03:18 | XMS_ITS | Data Portability ---
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 Plan of Treatment Reminders Order Date Submit Date Provider Last Modified By Organization Details Last Modified Time Details Appointments None record ed. Lab None record ed. Referral None record ed. Procedures None record ed. Surgeries None record ed. Imaging None record ed. Medication Orders None record ed. Patient TargetsNo targets recorded. Patient InstructionsNo instructions recorded. Reason for Referral None Reported. Medical Equipment None Reported. Medications Name Sig Start Date Stop Date Status Note LastModified by Organization Details LastModified Time citalopram 40 mg tablet TAKE 1 TABLET BY MOUTH EVERY DAY. MAX DAY SUPPLY OF 30/INSU KAMILLE active Not Available Not Available No t Available alprazolam 0.5 mg tablet active Not Available Not Available No t Available albuterol sulfate HFA 90 mcg/actuation aerosol inhaler active Not Available Not Availa ble Not Available fluticasone propionate 50 mcg/actuation nasal spray,suspension active Not Available Not Avail able Not Available oxycodone 5 mg tablet active Not Available Not Available Not Available desvenlafaxine ER 100 mg tablet,extended release 24 hr TAKE ONE TABLET MY MOUTH DAILY. active Not Available Not Available No t Available Flucelvax Quad (PF) 60 mcg (15 mcg x 4)/0.5 mL IM syringe active Not Available Not Available Not Available Vitals None Recorded Social History None recorded. Functional Status None recorded. Mental Status None recorded. Family History Nothing Reported. Medical History No medical history recorded. Gynecological HistoryNo gynecological history recorded. Obstetrics History GPAL:G 0 P 0 0 0 0 Past Encounters Encounter ID Performer Location Encounter Start Date Encounter Closed Date Diagnosis/Indication Diagnosis SNOMED-CT Code Diagnosis ICD10 Code Diagnosis IMO Codes Diagnosis Note [id number] Ck Wakefield PA-C [facility] [address] [place] [address] 08/16/2019 13:16:45 09/13/2019 19:59:19 [id number] Ck [place]field PA-C [facility] [address] [place] [address] 09/13/2019 10:29:43 09/14/2019 13:07:20 [id number] Ck Wakefield PA-C [facility] [address] [place] [address] 10/19/2019 08:01:37 10/19/2019 12:42:42 [id number] Jorge Luis Rodriguez MD [facility] [address] [place] [address] 11/22/2019 11:31:59 11/23/2019 13:27:12 [id number] Jorge Luis Rodriguez MD [facility] [address] [place] [address] 12/20/2019 13:37:44 12/21/2019 12:23:45 [id number] Jorge Luis Rodriguez MD [facility] [address] [place] [address] 02/13/2020 08:12:06 02/15/2020 14:06:21 [id number] Ck [place]field PA-C [facility] [address] [place] [address] 04/17/2020 11:22:51 04/18/2020 14:57:14 Health Concerns Section Related Observation LastModified by Organization Detai ls LastModified Time None Recorded Concern Status LastModified by Organization Details LastModified Time None Recorded Advance Directives Directive None Recorded Payers Insurance Date Sequence Insurance Name Policy Number Policy Shirley Covered Member ID Shirley Member ID Guarantor Name 08/21/2019 [facility] Jammie Johnson OBGynae Episode No OBEpisode recorded.
--- OUTSIDE RECORDS SUMMARY | 2025-03-01 03:18 | XMS_ITS | Encounter Summary ---
Author Organization [facility] Address [address] [place] [address] Care Team Providers Care Baker Helper Name Role Phone Harman Meek MD Primary Care Provider Encounter Details Date Type Department Care Team (Late st Contact Info) Description 12/15/2023 Orders Only [facility] [address] [place] [address] Citlali Dumont Abnormal cortisol level; Adrenal adenoma, unspecified laterality Social History Tobacco Use Types Packs/Day Years Used Date Smoking Tobacco: Former Cigarettes 1.5 15 Smokeless Tobacco: Never Comments:: Alcohol Use Standard Drinks/Week Comments Yes 3 (1 standard drink = 0.6 oz pur e alcohol) [facility] Utilities Answer Date Recorded In the past 12 months has th e electric, gas, oil, or water company threatened to shut off services in your home? No 08/23/2023 Hunger Vital Sign Answer Date Recorded Within the past 12 months, y ou worried that your food would run out before you got the money to buy more. Never true 08/23/19 24 Within the past 12 months, t he food you bought just didn't last and you didn't have money to get more. Never true 08/23/2023 Transportation Answer Date Recorded In the past 12 months, has l ack of reliable transportation kept you from medical appointments, meetings, work or from getting things needed for daily living? No 08/23/2023 Housing Answer Date Recorded Housing Risk Low 2 08/23/2023 Housing Risk Medium Not on file 08/23/2023 Housing Risk High Not on file 08/23/2023 What is your living situation today? [facility] 08/23/2023 Comments No Sex and Gender Information Value Date Recorded Sex Assigned at Female 12/01/2020 7:46 AM EDT Legal Sex Female 4:55 AM EDT Gender Identity Female 12/01/2020 7:46 AM EDT Sexual Orientation Straight 12/01/2020 7: 46 AM EDT documented as of this encounter Plan of Treatment Upcoming Encounters Date Type Department Care Team (Late st Contact Info) Description 03/01/2025 2:00 PM EST Appointment [facility] Respiratory Therapy Department [address] [place] [address] 03/05/2025 1:30 PM EST Office Visit [facility] [address] [facility] Family Medicine Department [address] [place] [address] Aysha Jackson NP [address] [place] [address] 03/16/2025 8:00 AM EST Telehealth [facility] [address] [facility] Endocrinology Department [address] [place] [address] Molly Griffin MD [address] [place] [address] 03/19/2025 10:30 AM EST Follow-Up [facility] 94 [facility] Orthopedic Department [address] [address] Annamarie Christiansen MD [address] [place] [address] 03/21/2025 9:30 AM EST Follow-Up [facility] Neurosurgery Clinic [address] [place] [address] Macario Brown MD [address] [place] [address] 10/22/2025 12:30 PM EDT Office Visit [facility] [address] [facility] Family Medicine Department [address] [place] [address] Katy Montague NP [address] [place] [address] 12/05/2025 10:20 AM EDT Appointment [facility] [address] [place] [address] documented as of this encounter Visit Diagnoses Diagnosis Abnormal cortisol level Adrenal adenoma, unspecified laterality documented in this encounter Care Teams Baker Helper Relationship Specialty Start Date End Date Harman Meek MD [address] [place] [address] PCP - General Family Medicine 10/16/24 documented as of this encounter
--- OUTSIDE RECORDS SUMMARY | 2025-03-01 03:18 | XMS_ITS | Clinical Summary ---
Author Organization [facility] Address [address] [place] [address] Care Team Providers Care General Expeditor Name Role Phone Jabier Downey MD Primary Care Provider [phone] Allergies Active Allergy Reactions Criticality Noted Date Comments Amoxicillin Trihydrate Diarrhea/GI Upset Medium 2005 Bee Venom Other 11/29/2006 Headache itching and redness of skin Sulfa Antibiotics Other 07/01/1998 anxiety Medications * This document contains information received from the source organization and may not represent a complete record from that organization. CITALOPRAM HYDROBROMIDE 20 MG OR TABS 2 TABLETS DAILY Active PRISTIQ 50 MG OR TB24 1 TABLET DAILY Active Active Problems Problem Noted Date Diagnosed Date Somatic dysfunction of cervical region 0 Somatic dysfunction of upper extremities 010 Somatic dysfunction of thoracic region 0 Somatic dysfunction of lumbar region 06/11/2009 Somatic dysfunction of lower extremities 010 Asthma 09/06/2002 Overview (03/29/2016): 09/06/2002 Mamie PARNELL M.D. , Major depressive disorder, recurrent episode Overview (04/21/2015): 10/09/1991 Mu PENDLETON M.D. 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 Resolved Problems Problem Noted Date Diagnosed Date Resolved Date Smoker 11/26/2008 Overview (01/22/2025): Immunizations Immunization Administration Dates Next Due FC Influenza Virus Vac Splt Prsrv Fr 3 Yrs+ 02/13/2009 Hep B (adult) 12/05/1998,06/13/1998,05/16/1998 Influenza,seasonal,trivalent ,preservat aleyda (FLUZONE MDV) 03/26/2008,02/19/2007,02/16/2006,03/19,03/21/2003,02/14/1991 Meningococcal MPSV4 (Menomune) 03/26/2003 PPD/TST (Tuberculin Skin Test) 03/12/2006 Td (adult), adsorbed 10/04/2006,05/16/1998 Family History Medical History Relation Name Comments Diabetes Mother Hypertension Mother Lipid/Cholesterol Abnormality Mother Relation Name Status Comments Mother Son Alive 2 Social History Tobacco Use Types Packs/Day Years [...] file Not on file Not on file Last Filed Vital Signs Vital Sign Reading Time Taken Comments Blood Pressure 110/62 07/09/2009 9:06 AM EDT Pulse 80 07/09/2009 9:06 AM EDT Temperature 37 C (98.6 F) 07/09/2009 9:06 AM EDT Respiratory Rate - - Oxygen Saturation 96% 01/10/2007 11:14 AM EDT Inhaled Oxygen Concentration - - Weight 67.6 kg (149 lb) 07/09/2009 9:06 AM EDT Height 160 cm (5' 3 ) 07/09/2009 9:06 AM EDT Body Mass Index 26.39 07/09/2009 9:06 AM EDT Plan of Treatment Health Maintenance Due Date Last Done Comments Hepatitis C Screening 1970 DTaP/Tdap/Td (1 - Tdap) 10/05/2006 10/04/2006, 05/16 Pap Smear 11/27/2011 11/26/2008, 03/12, 07/12/2007, Additional history exists Mammogram/Breast Imaging 03/06/2014 013, 02/29/2012, 02/23/2011, Additional history exists Pneumococcal 50+ years (1 of 1 - PCV) 2020 Zoster (Shingrix) (1 of 2) 2020 COVID-19 Vaccine ( - 2024- season) 2024 Influenza (#1) 2024 02/13/2009, 03/12, 02/19/2007, Additional history exists RSV (1 - 1-dose 75+ series) 2045 Hep B Completed 12/05/1998, 07/1998, 05/16/1998 Meningococcal ACWY Aged Out 03/26/2003 No longer eligible based on patient's age to complete this topic HPV Vaccine (No Doses Required) Completed Hep A Aged Out No longer eligi ble based on patient's age to complete this topic Hib Aged Out No longer eligi ble based on patient's age to complete this topic Procedures * Due to [place] [employer] law, this organization might not be sharing negative HIV tests. Procedure Name Priority Date/Time Associated Diagnosis Comments DIGITAL SCREENING MAMMO Routine 03/06/2013 1:56 PM EST LIQUID-BASED PAP WITH HPVH Routine 11/26/2008 3:00 PM EDT from Last 3 Months or Most Recently Relevant to Health Maintenance Results * Due to [place] [employer] law, this organization might not be sharing negative HIV tests. * DIGITAL SCREENING MAMMO (03/06/2013 1:56 PM EST) RADIOLOGY REPORT DEPARTMENT OF RADIOLOGY Patient: JAMMIE LAKE Unit #: [id number] Ordering MD: JABIER DOWNEY MD : 1970 Procedure: Digital Screening Mammo Age: 42 Location: C.MAMMO Exam Date: 03/06/13 Status: REG CLI Room/Bed: Primary MD: JAIBER DOWNEY MD Patient Order: [id number] Additional Copy: JABIER DOWNEY MD #[id number] - DIGSCRMAM #BILATERAL DIGITAL SCREENING MAMMOGRAM WITH CAD: 03/06/2013 CLINICAL: Routine. Comparison is made to exams dated: 02/29/2012 mammogram and 02/23/2011 mammogram - [facility]. The tissue of both breasts is heterogeneously dense. This may lower the sensitivity of mammography. Current study was also evaluated with a Computer Aided Detection (CAD) system. There are benign scattered calcifications in both breasts. No significant masses, calcifications, or other findings are seen in either breast. There has been no significant interval change. IMPRESSION: BENIGN There is no mammographic evidence of malignancy. A 1 year screening mammogram is recommended. POI: CHAMP Chris. Electronically signed by: Rani cali/jamia:03/15/20 13 08:38:39 letter sent: A-Normal Benign Mammogram BI-RADS: 2 Benign [facility] RAD Anatomical Region Laterality Modality Other 03/06/2013 1:56 PM EST Narrative 03/15/2013 10:15 AM EST Reason for Study/History: Routine. TEST(S) PROCESSED BY [facility] Jabier Downey MD IMAGING-ELLERY Final Result * LIQUID-BASED PAP WITH HPVH (11/26/2008 3:00 PM EDT) LIQUID-BASED PAP WITH HPVH SEE TEXT [facility] Comment: THINPREP PAP TEST WITH HPV SOURCES: VAGINA, CERVIX, ENDOCERVIX CLINICAL HISTORY: LMP: NOT GIVEN ASCUS/SHEILA PAP/BX W/IN 2 YRS ADDITIONAL INFORMATION PPS 03.26.08 ASCUS/HPV 4.1.08 ABLATION 4 YRS AGO STATEMENT OF ADEQUACY: SATISFACTORY, ENDOCERVICAL/TRANSFORMATION ZONE COMPONENT IS PRESENT QUALITY INDICATORS: LACK OF PERTINENT HISTORY: LMP RESULT: NEGATIVE FOR INTRAEPITHELIAL LESION OR MALIGNANCY HPV DNA TEST: NOT DETECTED HIGH/INTERMEDIATE RISK HPV DNA SUBTYPES (16,18,31,33,35,39,45, 51,52,56,58,59,68) ARE NOT DETECTED. THE ANALYTICAL PERFORMANCE CHARACTERISTICS OF THIS ASSAY, WHEN USED TO TEST SUREPATH OR VAGINAL SPECIMENS, HAVE BEEN DETERMINED BY [employer]. COMMENTS: THIS PAP TEST HAS BEEN EVALUATED [...] EVALUATED WITH COMPUTER ASSISTED TECHNOLOGY. us Jabier Downey MD PATHOLOGY-INTERFACED Final Resu lt [employer] [address] [place] [phone] from Last 3 Months or Most Recently Relevant to Health Maintenance Care Teams General Expeditor Relationship Specialty Start Date End Date Jabier Downey MD [facility] [address] [place] [phone] PCP - General 04/27/09
--- OUTSIDE RECORDS SUMMARY | 2025-03-01 03:18 | XMS_ITS | Encounter Summary ---
Author Organization [facility] Address [address] [place] [address] Phone Care Team Providers Care Senior Graphic Designer Name Role Phone Harman Meek MD Primary Care Provider [phone] Jabier Avendano MD Unavailable [phone] Reason for Referral * MRI/CAT Scan - Authorized Specialty Diagnoses / Procedures Referred By Contac t Referred To Contact Radiology Procedures Outside MR Spine Report Only Umberto Stephen DO [address] [place] [address] Phone: tel: fax: mailto:[email or web address] Referral ID Status Reason Start Date Expiration Date V isits Requested Visits Authorized [id number] Authorized 02/23/2025 1 1 Encounter Details Date Type Department Care Team (Late st Contact Info) Description 02/23/2025 Orders Only [address] [address] Umberto Stephen DO [address] [place] [address] [email or web address] Social History Tobacco Use Types Packs/Day Years [...] high school, GED, job training, learning the Italian language, technical skills, or developing parenting skills)? [...] Orientation Straight 12/21/2024 9: 59 AM EDT documented as of this encounter Plan of Treatment Upcoming Encounters Date Type Department Care Team (Late st Contact Info) Description 03/07/2025 10:00 AM EST [facility] [address] [place] [address] Umberto Stephen, [address] [place] [address] [email or web address] documented as of this encounter Procedures Procedure Name Priority Date/Time Associated Diagnosis Comments OUTSIDE MR SPINE REPORT ONLY Routine 02/23/2025 8:39 AM EST documented in this encounter Results * Outside MR Spine Report Only (02/23/2025 8:39 AM EST) us Umberto Stephen DO IMG MR SPINE Final Resu lt documented in this encounter Visit Diagnoses Not on filedocumented in this encounter Care Teams Senior Graphic Designer Relationship Specialty Start Date End Date Harman Meek MD [address] [place] [phone] PCP - General Family Medicine 12/21/24 Jabier Avendano MD [address] [place] [address] 12/21/24 documented as of this encounter Additional Source Comments The information contained in this document represents components of the legal health record. It is not the complete legal health record.[facility]
== END 2025-02-28 15:48 | disposition home or self-care (01) ==
LOC: HO.HNS 14:43
PROVIDERS: Visit Provider Neurological Surgery
DX: M48.062 Spinal stenosis, lumbar region with neurogenic claudication (principal); M51.362 Other intervertebral disc degeneration, lumbar region with discogenic back pain and lower extremity pain
CPT/HCPCS: 99213